=== PATIENT | female | born 1965 | race Caucasian/White ===

== ENCOUNTER 2019-12-23 23:15 | Emergency (ER) | payer OTHER, SELFPAY ==
--- NOTE | ~2019-12-23 | XR_ITS ---
XR chest 2V DATE: 12/23/2019 23:44 INDICATION: Midsternal chest pain after ingestion of with toothpick 12 hours ago TECHNIQUE: PA and lateral views COMPARISON: 04/10/2015 AP and lateral chest FINDINGS: Normal heart size. No hilar or mediastinal enlargement. No pulmonary infiltrate or consolid ation, pleural effusion or pulmonary vascular congestion or pneumothorax. No radiopaque foreign body is evident. Mild degenerative change of the thoracic spine. Status post cholecystectomy. IMPRESSION: No active cardiopulmonary disease Reviewed, dictated and finalized at location A.
[2019-12-23 23:23] VITALS: BP 180/70; PULSE 90; RESP 16; TEMP 36.5; O2SAT 99
--- NOTE | 2019-12-23 23:31 | PC.NURSE ---
patient did eat a large supper, with lots of tomatoes that gives her bad heart burn, but son made her scared she ate the toothpick, so came to ED
--- NOTE | 2019-12-23 23:53 | ED.GENADULT ---
HPI - General Adult General Chief complaint: Unspecified Stated complaint: Ingestion of possible tooth pick Source: patient and RN notes reviewed Mode of arrival: ambulatory Limitations: no limitations History of Present Illness HPI narrative: patient states that she thinks she swallowed a bout 1/2 inch of a flat tooth pick during a meal 12 hours ago. Since then she had a a sub sandwich and had no difficulty eating that. She now feels like she has a strange feeling in her lower esophagus and she points towards her xiphoid process. She has no other symptoms she denies cough, difficulty swallowing, fever chills. She denies any difficulty breathing. MD complaint: swallowed a toothpick Onset (ago): hour(s) (12) Associated symptoms: denies other symptoms Treatments prior to arrival: none Related Data Home Medications Medication Instructions Recorded Confirmed albuterol sulfate [ProAir HFA] See Rx Instructions .ROUTE .COMPLEX 12/23/19 12/23/19 hydrochlorothiazide See Rx Instructions .ROUTE .COMPLEX 12/23/19 12/23/19 montelukast [Singulair] See Rx Instructions .ROUTE .COMPLEX 12/23/19 12/23/19 omeprazole See Rx Instructions .ROUTE .COMPLEX 12/23/19 12/23/19 zolpidem [Ambien] See Rx Instructions .ROUTE .COMPLEX 12/23/19 12/23/19 Allergies Allergy/AdvReac Type Severity Reaction Status Date / Time Penicillins Allergy Unknown RASH Unverified 10/28/13 15:19 Review of Systems Review of Systems: All systems reviewed & are unremarkable except as noted in HPI and below PMFSH Past Medical History Medical History (Updated 12/24/19 @ 00:07 by Krunal Huang MD) Asthma GERD (gastroesophageal reflux disease) Hypertension Surgical History Surgical History (Updated 12/24/19 @ 00:07 by Krunal Huang MD) Delivery by section History of ankle surgery History of bilateral tubal ligation Hx of cholecystectomy Hx of tonsillectomy Social History Social History (Updated 12/24/19 @ 00:04 by Krunal Huang MD) Smoking status: Never smoker Alcohol intake: former Substance use: never Gender identity (if verbalized by the patient): Female Sexual Orientation (if Verbalized by the Patient): Straight or Heterosexual Exam Const: General: healthy appearing and no acute distress Nutritional Appearance: well nourished and obese morbidly obese Orientation/consciousness: patient oriented x3 Course Course Emergency Course: I explained the patient that the small portion of a flat wood tooth pick should pass or dissolve. the feeling that she has may be from an abrasion when she swallowed a toothpick and just irritation from digestive juices going down her throat or washing up from her stomach. She is encouraged to monitor her symptoms follow-up primary care any worsening symptoms. Vital Signs Vital signs: Vital Signs Temperature 36.5 C 12/23/19 23:23 Pulse Rate 90 12/23/19 23:23 Respiratory Rate 16 12/23/19 23:23 Blood Pressure 180/70 H 12/23/19 23:23 Pulse Oximetry 99 12/23/19 23:23 Temperature 36.5 C 12/23/19 23:23 Pulse Rate 90 12/23/19 23:23 Respiratory Rate 16 12/23/19 23:23 Blood Pressure 180/70 H 12/23/19 23:23 Pulse Oximetry 99 12/23/19 23:23 Medical Decision Making Vital Signs Vital Signs: Vital Signs Temperature 36.5 C 12/23/19 23:23 Pulse Rate 90 12/23/19 23:23 Respiratory Rate 16 12/23/19 23:23 Blood Pressure 180/70 H 12/23/19 23:23 Pulse Oximetry 99 12/23/19 23:23 Temperature 36.5 C 12/23/19 23:23 Pulse Rate 90 12/23/19 23:23 Respiratory Rate 16 12/23/19 23:23 Blood Pressure 180/70 H 12/23/19 23:23 Pulse Oximetry 99 12/23/19 23:23 Discharge Plan Discharge Clinical Impression: Foreign body ingestion Qualifiers: Encounter type: initial encounter Qualified Code(s): T18.9XXA - Foreign body of alimentary tract, part unspecified, initial encounter Patient Disposition: Home, Self-Care Condition: Stable Instructi
--- NOTE | 2019-12-23 23:58 | PC.NURSE ---
reviewing xray & plan of care
[2019-12-24 00:07] VITALS: BP 170/88; PULSE 78; RESP 18; TEMP 37; O2SAT 98
== END 2019-12-24 00:08 | disposition home or self-care (01) ==
PROVIDERS: Emergency Provider Emergency Medicine; PCP Family Medicine
DX: T18.9XXA Foreign body of alimentary tract, part unspecified, initial encounter (principal)
CPT/HCPCS: 71046; 99281; 99283

== ENCOUNTER 2019-12-30 11:05 | Emergency (ER) | payer OTHER, SELFPAY ==
--- NOTE | ~2019-12-30 | CT_ITS ---
EXAMINATION: CT abdomen pelvis wo con DATE: 12/30/2019 11:54 INDICATION: Left flank pain, history of kidney stones TECHNIQUE: Computed tomography (CT) of the abdomen and pelvis was performed without intravenous contr ast. The dose-length product (DLP) was 705.36 mGy-cm. Automated exposure control and iterative recons truction technique were employed. COMPARISON: 08/16/2018 FINDINGS: The lung bases are clear. The heart size is normal. The liver is diffusely low in attenuati on when compared with the spleen, consistent with hepatic steatosis. The gallbladder is surgically ab sent. The spleen, pancreas, and adrenal glands are normal. The kidneys are unremarkable. No stones ar e identified in the kidneys, ureters, or bladder. There is no hydronephrosis or hydroureter. The appe ndix is normal. Colonic diverticulosis is present without evidence of diverticulitis. There is severe lumbar spondylosis at L4-5. A fat-containing umbilical hernia is noted. IMPRESSION: 1. No CT correlate for the patient's symptoms. Reviewed, dictated and finalized at location A.
[2019-12-30 11:10] VITALS: BP 183/85; PULSE 78; RESP 20; TEMP 36.8; O2SAT 99
[2019-12-30] MEDS: KETOROLAC 15 MG/ML VIAL (*BKC) IV PUSH (11:31)
[2019-12-30] MEDS: MORPHINE SULFATE 4 MG/ML INJ IV PUSH (11:32)
--- NOTE | 2019-12-30 11:41 | ED.GENADULT ---
HPI - General Adult General Chief complaint: Urogenital-Female Stated complaint: kidney stone Source: patient Mode of arrival: ambulatory Limitations: no limitations History of Present Illness HPI narrative: Madonna is a 54F with a PMH of HTN, GERD, recurrent ureterolithiasis (required surgery once) that presented to the ED with left flank pain. She had left flank pain that came on while doing house chores suddenly. It is a waxing and waning stabbing pain in her left flank that feels like previous stones. No dysuria, hematuria, N/V/D, CP, SOB, fevers or chills. Related Data Home Medications Medication Instructions Recorded Confirmed beclomethasone dipropionate 1 inh INHALATION Q12H 12/30/19 12/30/19 hydrochlorothiazide 25 mg PO DAILY 12/30/19 12/30/19 loratadine [Claritin] 10 mg PO DAILY 12/30/19 12/30/19 omeprazole 40 mg PO DAILY 12/30/19 12/30/19 Allergies Allergy/AdvReac Type Severity Reaction Status Date / Time Penicillins Allergy Unknown RASH Unverified 10/28/13 15:19 Review of Systems Constitutional: Constitutional: Reports no additional constitutional complaints Eyes: Eyes: Reports no additional eye complaints ENT: Reports system reviewed and no additional complaints, except as documented Cardiovascular: Cardiovascular: Reports no additional cardiovascular complaints Respiratory: Respiratory: Reports no additional respiratory complaints Gastrointestinal: Gastrointestinal: Reports no additional gastrointestinal complaints Genitourinary: Genitourinary: Reports as per HPI Musculoskeletal: Musculoskeletal: Reports no additional musculoskeletal complaints Integumentary/Breasts: Skin/Breast: Reports system reviewed and no additional complaints, except as docu Neurologic: Reports system reviewed and no additional complaints, except as documented Psychiatric: Psychiatric: Reports no additional psychiatric complaints Endocrine: Endocrine: Reports no additional endocrine complaints Hematologic/Lymphatic: Hematologic/Lymphatic: Reports no additional hematologic/lymphatic complaints Allergic/Immunologic: Allergic/Immunologic: Reports no additional allergic/immunologic complaints [facility] Past Medical History Medical History Asthma GERD (gastroesophageal reflux disease) Hypertension Surgical History Surgical History Delivery by section History of ankle surgery History of bilateral tubal ligation Hx of cholecystectomy Hx of tonsillectomy Social History Social History Smoking status: Never smoker Alcohol intake: former Substance use: never Gender identity (if verbalized by the patient): Female Exam Const: General: alert Orientation/consciousness: patient oriented x3 Limitations: No altered mental status Other: In mild distress HENMT: Head: normal to inspection Mouth: Yes moist mucous membranes Eyes: Conjunctivae: conjunctivae normal Pupils: Equal, round and reactive pupils present Neck: Neck: normal visual inspection Chest: Chest palpation & inspection: normal inspection of the chest Resp: Effort & Inspection: normal respiratory effort Auscultation: clear to auscultation bilaterally Cardio: Rate: regular rate Rhythm: regular rhythm Heart sounds: no murmurs GI: GI Palp: Yes Soft to palpation, No Tenderness to palpation present (GI) and No Guarding due to palpation present (GI) : Other: Significant left sided tenderness Skin: General skin exam: normal color Rashes: no rashes Neuro: General: patient oriented x3 and moves all extremities Psych: Mental Status: mental status grossly normal Course Course Emergency Course: Madonna was seen and evaluated. Ordered toradol and morphine for pain control. Orderd labs as below, UA and CT abd/pelvis w/o contrast. Medical Decision Making Lab Data Res
[2019-12-30 11:50] LABS: Basophils Absolute Auto 0.05 K/mm3 (0.00-0.10); Basophils Percent Auto 0.7 % (0.0-1.0); Eosinophils Absolute Auto 0.45 K/mm3 (0.02-0.50); Eosinophils Percent Auto 6.3 % (1.0-6.0); Hematocrit 44.2 % (35.0-49.0); Immature Granulocyte Absolute 0.03 K/mm3 (0.00-0.00); Immature Granulocyte Percent A 0.4 % (0.0-0.0); Lymphocytes Absolute Auto 1.75 K/mm3 (1.10-4.50); Lymphocytes Percent Auto 24.6 % (18.0-42.0); Mean Corpuscular HGB Conc 31.7 g/dL (32.0-36.0); Mean Corpuscular Hemoglobin 27.2 pg (27.0-31.0); Mean Platelet Volume 9.9 fl (9.2-11.8); Monocytes Absolute Auto 0.52 K/mm3 (0.10-0.90); Monocytes Percent Auto 7.3 % (2.0-11.0); Neutrophils Absolute Auto 4.3 K/mm3 (1.7-7.2); Neutrophils Percent Auto 60.7 % (50.0-70.0); Platelet Count Result 322 K/mm3 (150-420); Red Blood Count 5.14 M/mm3 (4.20-5.40); Red Cell Distribution Width 14.6 % (11.6-14.4); White Blood Count 7.1 K/mm3 (4.8-10.8)
[2019-12-30 11:51] LABS: Add Urine Microscopic? NO; Appearance Urine Clear (Clear); Bilirubin Urine Negative (Negative); Blood Urine Negative (Negative); Color Urine Yellow (Yellow); Glucose Urine UA Negative (Negative); Ketones Urine Negative (Negative); Leukocyte Esterase Ur Negative (Negative); Nitrate Urine Negative (Negative); Protein Urine Negative (Negative); Specific Grav Ur <= 1.005 (1.010-1.020); Urobilinogen Urine 0.2 mg/dL (0.2-1.0); pH Urine 5.5 (5.0-8.0)
[2019-12-30 12:08] LABS: Alanine Aminotransferase 43 U/L (14-59); Albumin Level 3.6 g/dL (3.4-5.0); Alkaline Phosphatase 76 U/L (46-116); Anion Gap 7 mmol/L (8-16); Aspartate Amino Transferase 23 U/L (15-37); Bilirubin,Total 0.2 mg/dL (0.00-1.00); Blood Urea Nitrogen 16 mg/dL (7-18); Calcium 8.9 mg/dL (8.5-10.1); Carbon Dioxide 30 mmol/L (21-32); Chloride 102 mmol/L (98-108); Estimated Glomerular Filt Rate 52; Glucose 129 mg/dL (70-99); Osmolality Calculated 291 mOsm/kg (285-295); Potassium 3.5 mmol/L (3.5-5.1); Sodium 139 mmol/L (136-145); Total Protein 7.7 g/dL (6.4-8.2)
[2019-12-30 12:09] LABS: Lipase 127 U/L (73-393)
[2019-12-30 12:50] VITALS: BP 158/78
== END 2019-12-30 12:50 | disposition home or self-care (01) ==
PROVIDERS: Emergency Provider Family Medicine; PCP Family Medicine
DX: R10.9 Unspecified abdominal pain (principal); I10 Essential (primary) hypertension; K21.9 Gastro-esophageal reflux disease without esophagitis; J45.909 Unspecified asthma, uncomplicated; Z87.442 Personal history of urinary calculi
CPT/HCPCS: 36415; 74176; 80053; 81003; 83690; 85025; 96374; 96375; 99283; 99284; J1885; J2270

== ENCOUNTER 2020-05-15 11:17 | Outpatient (CLI) | payer BC, SELFPAY ==
--- NOTE | ~2020-05-15 | XR_ITS ---
EXAMINATION: XR ankle RT min 3V DATE: 05/15/2020 11:50 INDICATION: Right ankle pain. TECHNIQUE: 4 views of right ankle were obtained. COMPARISON: None. FINDINGS: Bone alignment is normal. No fracture. 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 There are suture anchors in calcaneus. There is an enthesophyte at posterior aspect of calcaneal tuberosity. Ankle soft tissue swelling is noted. IMPRESSION: 1. No fracture. Reviewed, dictated and finalized at location B. ET [employer] IMPRESSION: 1. No fracture.
--- NOTE | ~2020-05-15 | XR_ITS ---
EXAMINATION: XR chest 2V DATE: 05/15/2020 11:49 INDICATION: Left chest pain. TECHNIQUE: Frontal and lateral views of the chest were obtained on 3 radiographs. COMPARISON: Chest 2 views 12/23/2019 FINDINGS: The chest demonstrates clear lungs without pneumonia, pleural effusion, or pneumothorax. Th e heart size is normal. Surgical clips in the right upper quadrant are likely from cholecystectomy. IMPRESSION: 1. No acute cardiopulmonary disease. Reviewed, dictated and finalized at location B. ENGINEER
[2020-05-15 11:32] LABS: Basophils Absolute Auto 0.06 K/mm3 (0.00-0.10); Basophils Percent Auto 0.8 % (0.0-1.0); Eosinophils Absolute Auto 0.65 K/mm3 (0.02-0.50); Eosinophils Percent Auto 8.6 % (1.0-6.0); Hematocrit 45.1 % (35.0-49.0); Hemoglobin 14.3 g/dL (12.0-15.0); Immature Granulocyte Absolute 0.03 K/mm3 (0.00-0.00); Immature Granulocyte Percent A 0.4 % (0.0-0.0); Lymphocytes Absolute Auto 1.74 K/mm3 (1.10-4.50); Lymphocytes Percent Auto 22.9 % (18.0-42.0); Mean Corpuscular HGB Conc 31.7 g/dL (32.0-36.0); Mean Corpuscular Volume 85.1 fL (78.0-102.0); Monocytes Absolute Auto 0.48 K/mm3 (0.10-0.90); Monocytes Percent Auto 6.3 % (2.0-11.0); Neutrophils Absolute Auto 4.6 K/mm3 (1.7-7.2); Platelet Count Result 324 K/mm3 (150-420); Red Cell Distribution Width 14.8 % (11.6-14.4); White Blood Count 7.6 K/mm3 (4.8-10.8)
[2020-05-15 11:39] LABS: Creatinine Urine 214.47 mg/dL (40-278); Microalbumin Urine Random < 13.0 mg/L
[2020-05-15 11:53] LABS: Anion Gap 7 mmol/L (8-16); Blood Urea Nitrogen 13 mg/dL (7-18); Calcium 9.4 mg/dL (8.5-10.1); Carbon Dioxide 31 mmol/L (21-32); Chloride 100 mmol/L (98-108); Creatine Kinase 76 U/L (26-192); Estimated Glomerular Filt Rate 48; Glucose 119 mg/dL (70-99); Osmolality Calculated 287 mOsm/kg (285-295); Potassium 3.3 mmol/L (3.5-5.1); Sodium 138 mmol/L (136-145); Thyroid Stimulating Hormone 1.52 uIU/mL (0.36-3.74); Troponin I 4.4 ng/L (0.00-60.4)
[2020-05-15 12:02] LABS: Creatine Kinase MB < 0.50 ng/mL (0.00-5.00)
== END 2020-05-15 11:18 | disposition home or self-care (01) ==
LOC: CHSLAB 11:19
PROVIDERS: PCP Family Medicine; Visit Provider Family Medicine
DX: R07.9 Chest pain, unspecified (principal); I10 Essential (primary) hypertension; M25.571 Pain in right ankle and joints of right foot
CPT/HCPCS: 36415; 71046; 73610; 80048; 82043; 82550; 82553; 84443; 84484; 85025

== ENCOUNTER 2020-06-23 13:41 | Outpatient (CLI) | payer BC, SELFPAY ==
--- NOTE | 2020-06-23 13:46 | ECHO_ITS ---
Patient Info Name: Madonna Mi Age: 54 years : 1965 Gender: Female Ht: 66 in Wt: 229 lbs BSA: 2.24 m2 HR: 67 bpm BP: 120 / 69 mmHg Heart Rhythm: Sinus Rhythm Technical Quality: Fair Exam Date: 06/23/2020 2:13 PM Exam Location: [facility] Patient Status: Outpatient Admit Date: 06/23/2020 Staff Ordering Physician: Artemio Kerns DO Equine Internship: Karen Barlow RDCS Attending Provider: Artemio Kerns DO Referring Physician: Luis F HALE; Exam Type: CA echo dop color flow w con Study Info Indications R06.00 - Dyspnea, unspecified Complete two-dimensional, color flow and Doppler transthoracic echocardiogram is performed with contrast to opacify the left ventricle and to improve the deliniation of the left ventricle endocardial borders. Strain analysis performed. Contrast/Agitated Saline Contrast/Ag. Saline: Definity Amount: 5.00 ml New IV Access: Dorsum of Hand and Left Site Condition: No extravasation, Site dressing applied and IV removed History/Risk Factors Hypertension: Yes Obesity: Yes Diabetes Mellitus: No Tobacco Use: Former Family History: Coronary Artery Disease Frailty Scale (CSHA): 2: Well Summary 1. Left ventricular chamber dimension is normal. 2. Definity contrast administered improved wall motion interpretation. 3. Left ventricular systolic function is normal, estimated at 65-70%. 4. There is mildly increased left ventricular wall thickness. 5. The left ventricular diastolic function is grade I diastolic dysfunction. 6. E/e' 13 is mildly elevated. 7. Global longitudinal strain is abnormal at -11.7%. 8. There is trace pulmonic regurgitation. Left Ventricle Definity contrast administered improved wall motion interpretation. E/e' 13 is mildly elevated. Global longitudinal strain is abnormal at -11.7%. Left ventricular chamber dimension is normal. Left ventricular systolic function is normal, estimated at 65-70%. There is mildly increased left ventricular wall thickness. The left ventricular diastolic function is grade I diastolic dysfunction. Right Ventricle Right ventricular chamber dimension is normal. Right ventricular systolic function is normal. Left Atria Left atrial chamber dimension is normal. Right Atria Right atrial chamber dimension is normal. Aortic Valve The aortic valve is trileaflet. There is no aortic valve stenosis. There is no aortic valve regurgitation. Pulmonic Valve There is trace pulmonic regurgitation. Mitral Valve There is no mitral valve stenosis. There is no mitral valve regurgitation. Tricuspid Valve There is no tricuspid valve regurgitation. Pericardium/Pleural There is no pericardial effusion. Inferior Vena Cava Normal inferior vena cava with >50% collapse upon inspiration consistent with normal right atrial pressure, 5 mmHg. Aorta The aortic root size at the sinus of Valsalva is normal. Left Ventricular Outflow Tract Name Value Normal LVOT 2D LVOT Diameter 1.97 cm LVOT Doppler LVOT Peak Velocity 106.68 cm/s
== END 2020-06-23 13:42 | disposition home or self-care (01) ==
LOC: CHSIMG 13:42
PROVIDERS: PCP Family Medicine; Visit Provider Internal Medicine Cardiovascular Disease
DX: R06.00 Dyspnea, unspecified (principal)
CPT/HCPCS: C8929

== ENCOUNTER 2021-05-12 07:00 | Emergency (ER) | payer BC, SELFPAY ==
[2021-05-12 07:05] VITALS: BP 166/89; PULSE 102; RESP 20; TEMP 36.5; O2SAT 98
--- NOTE | 2021-05-12 07:21 | ED.NAVMDI ---
HPI - Nausea/Vomiting/Diarrhea General Chief complaint: Nausea/Vomiting/Diarrhea Stated complaint: Vomiting/diarrhea Source: patient and RN notes reviewed Mode of arrival: ambulatory Limitations: no limitations History of Present Illness MD elicited complaint: nausea, vomiting and diarrhea Onset (ago): hour(s) (14) Description of vomiting: food contents and bilious Description of diarrhea: watery Associated nausea: Yes Associated abdominal pain: No Severity: moderate Exacerbating factors: eating Relieving factors: none Associated symptoms: denies other symptoms Related Data Home Medications Medication Instructions Recorded Confirmed beclomethasone dipropionate 1 inh INHALATION Q12H 12/30/19 05/12/21 hydrochlorothiazide 25 mg PO DAILY 12/30/19 05/12/21 loratadine [Claritin] 10 mg PO DAILY 12/30/19 05/12/21 omeprazole 40 mg PO DAILY 12/30/19 05/12/21 albuterol sulfate 90 mcg/actuation 1 inh INHALATION Q4H 05/25/20 05/12/21 aerosol inhaler cetirizine 10 mg tablet 10 mg PO DAILY PRN 05/25/20 05/12/21 escitalopram oxalate 10 mg tablet 10 mg PO DAILY 06/18/20 05/12/21 trazodone 50 mg tablet 50 mg PO DAILY PRN tablet 06/18/20 05/12/21 Allergies Allergy/AdvReac Type Severity Reaction Status Date / Time Penicillins Allergy Unknown RASH Unverified 06/18/20 10:42 Review of Systems Review of Systems: All systems reviewed & are unremarkable except as noted in HPI and below Constitutional: Constitutional: Denies chills and Denies fever(s) ENT: Denies sore throat Cardiovascular: Cardiovascular: Denies chest pain Respiratory: Respiratory: Denies cough PMFSH Past Medical History Medical History Asthma GERD (gastroesophageal reflux disease) History of use of contraceptive intrauterine device (IUD) Hypertension Renal stones Surgical History Surgical History Delivery by section History of ankle surgery History of bilateral tubal ligation History of colonoscopy Hx of cholecystectomy Hx of tonsillectomy Social History Social History Smoking status: Former smoker Alcohol intake: former Substance use: never Gender identity (if verbalized by the patient): Female Sexual Orientation (if Verbalized by the Patient): Straight or Heterosexual Exam Const: General: healthy appearing and no acute distress Nutritional Appearance: well nourished and obese morbidly obese Orientation/consciousness: patient oriented x3 HENMT: Head: normal to inspection Ears: external ears normal Eyes: Cornea: corneas normal Pupils: Equal, round and reactive pupils present EOM: EOMs intact bilaterally Neck: Neck: normal visual inspection Resp: Effort & Inspection: normal respiratory effort Auscultation: clear to auscultation bilaterally Cardio: Rate: regular rate Rhythm: regular rhythm GI: GI Palp: Yes Soft to palpation, No Tenderness to palpation present (GI) and No Guarding due to palpation present (GI) Auscultation: normal bowel sounds Back/Spine/Pelvis: Cervical Spine: cervical ROM normal Thoracic/Lumbar Spine: thoraco-lumbar ROM normal Skin: General skin exam: normal color Rashes: no rashes Neuro: General: patient oriented x3, moves all extremities, no meningeal signs, no focal motor deficits and CN's II-XI intact bilaterally Speech: normal speech Gait exam (Neuro): Normal gait present Extrem: General: normal to inspection and no clubbing, cyanosis or edema Psych: Appearance: grossly normal and well kempt Mental Status: mental status grossly normal Affect: normal affect Attitude: cooperative Thought content: Yes Normal thought content present Course Course Emergency Course: Patient given a L of fluids and 40 mEq of potassium through her IV. She has potassium pills at home I asked her to double her dose over the next 5 days. Should follow u
[2021-05-12] MEDS: ONDANSETRON INJ 4 MG/2 ML VIAL IV PUSH (07:38)
[2021-05-12] MEDS: SODIUM CHLORIDE 0.9% IV 1,000 ML 999 ML IV CONT (07:39)
[2021-05-12 07:56] LABS: Basophils Absolute Auto 0.02 K/mm3 (0.00-0.10); Basophils Percent Auto 0.2 % (0.0-1.0); Eosinophils Absolute Auto 0.08 K/mm3 (0.02-0.50); Hematocrit 44.7 % (35.0-49.0); Hemoglobin 14.3 g/dL (12.0-15.0); Immature Granulocyte Absolute 0.04 K/mm3 (0.00-0.00); Immature Granulocyte Percent A 0.5 % (0.0-0.0); Lymphocytes Absolute Auto 0.69 K/mm3 (1.10-4.50); Lymphocytes Percent Auto 8.6 % (18.0-42.0); Mean Corpuscular Hemoglobin 27.7 pg (27.0-31.0); Mean Corpuscular Volume 86.5 fL (78.0-102.0); Mean Platelet Volume 9.8 fl (9.2-11.8); Monocytes Absolute Auto 0.31 K/mm3 (0.10-0.90); Monocytes Percent Auto 3.8 % (2.0-11.0); Neutrophils Absolute Auto 6.9 K/mm3 (1.7-7.2); Neutrophils Percent Auto 85.9 % (50.0-70.0); Platelet Count Result 314 K/mm3 (150-420); Red Blood Count 5.17 M/mm3 (4.20-5.40); White Blood Count 8.1 K/mm3 (4.8-10.8)
[2021-05-12 08:23] LABS: Alanine Aminotransferase 104 U/L (14-59); Albumin Level 3.3 g/dL (3.4-5.0); Alkaline Phosphatase 58 U/L (46-116); Anion Gap 14 mmol/L (8-16); Aspartate Amino Transferase 46 U/L (15-37); Bilirubin,Total 0.4 mg/dL (0.00-1.00); Blood Urea Nitrogen 19 mg/dL (7-18); CRP 3.6 mg/dL (0.0-0.9); Calcium 8.6 mg/dL (8.5-10.1); Carbon Dioxide 28 mmol/L (21-32); Chloride 99 mmol/L (98-108); Estimated CRCL calculation 50 ml/min; Estimated Glomerular Filt Rate 41; Glucose 159 mg/dL (70-99); Magnesium 1.8 mg/dL (1.8-2.4); Osmolality Calculated 297 mOsm/kg (285-295); Sodium 141 mmol/L (136-145); Total Protein 7.4 g/dL (6.4-8.2)
[2021-05-12 08:29] LABS: Potassium 2.5 mmol/L (3.5-5.1)
[2021-05-12 08:37] LABS: SARS-CoV-2 RNA PCR Negative (Negative)
[2021-05-12] MEDS: KCL 20 MEQ/SW 100 ML 100 ML 50 MEQ IVPB ×2 (08:50→09:05)
[2021-05-12] MEDS: SODIUM CHLORIDE 0.9% IV 500 ML 30 ML (09:16)
--- NOTE | 2021-05-12 09:30 | PC.NURSE ---
pt up to commode, incontinent of stool small amount. adult pull up and wipes obtained. offered assistance to pt with skin care. pt declined.
--- NOTE | 2021-05-12 10:20 | PC.NURSE ---
resting per cot, watching tv. no complaints voiced at this time. call schmidt in reach.
[2021-05-12 12:28] VITALS: BP 160/79; RESP 20; TEMP 36.6; O2SAT 97
== END 2021-05-12 12:45 | disposition home or self-care (01) ==
PROVIDERS: Emergency Provider Emergency Medicine; PCP Family Medicine
DX: A08.4 Viral intestinal infection, unspecified (principal); E87.1 Hypo-osmolality and hyponatremia; Z20.822 Contact with and (suspected) exposure to COVID-19
CPT/HCPCS: 36415; 80053; 83735; 85025; 86140; 96361; 96365; 96375; 99283; 99284; C9803; J2405; J3480; J7030; J7050; U0003; U0005

== ENCOUNTER 2021-07-20 23:25 | Emergency (ER) | payer BC, SELFPAY ==
[2021-07-20 23:47] VITALS: BP 142/72; PULSE 68; RESP 16; TEMP 36.2; O2SAT 95
--- NOTE | 2021-07-20 23:47 | ED.GENADULT ---
HPI - General Adult General Chief complaint: Unspecified Stated complaint: Nose problem Time Seen by Provider: 07/20/21 23:48 History of Present Illness HPI narrative: 55-year-old female patient is here with the complaints of blockage of the left knee area ease. She states that every time she tries to breathe out she feels that there is a block there. She does not have any difficulty breathing in. She does have history of allergies and uses Claritin. She has not had any cold recently. And she does not recall any foreign bodies into the nares Related Data Home Medications Medication Instructions Recorded Confirmed beclomethasone dipropionate 1 inh INHALATION Q12H 12/30/19 05/12/21 hydrochlorothiazide 25 mg PO DAILY 12/30/19 05/12/21 loratadine [Claritin] 10 mg PO DAILY 12/30/19 05/12/21 omeprazole 40 mg PO DAILY 12/30/19 05/12/21 albuterol sulfate 90 mcg/actuation 1 inh INHALATION Q4H 05/25/20 05/12/21 aerosol inhaler cetirizine 10 mg tablet 10 mg PO DAILY PRN 05/25/20 05/12/21 escitalopram oxalate 10 mg tablet 10 mg PO DAILY 06/18/20 05/12/21 trazodone 50 mg tablet 50 mg PO DAILY PRN tablet 06/18/20 05/12/21 Allergies Allergy/AdvReac Type Severity Reaction Status Date / Time Penicillins Allergy Unknown RASH Unverified 06/18/20 10:42 Review of Systems Review of Systems: All systems reviewed & are unremarkable except as noted in HPI and below PMFSH Past Medical History Medical History Asthma GERD (gastroesophageal reflux disease) History of use of contraceptive intrauterine device (IUD) Hypertension Renal stones Surgical History Surgical History Delivery by section History of ankle surgery History of bilateral tubal ligation History of colonoscopy Hx of cholecystectomy Hx of tonsillectomy Social History Social History Smoking status: Former smoker Alcohol intake: former Substance use: never Gender identity (if verbalized by the patient): Female Sexual Orientation (if Verbalized by the Patient): Straight or Heterosexual Exam Narrative: Alert female in no acute distress . Vital signs are stable. HEENT: normal appearing skull face. No obvious deformities noted. Pupils are midsize and equal and reactive to light. EOMs intact. Nares are patent on both sides. Patient does have boggy mucous membrane in the left septal area but there is no obstruction. The air movement is fine. There is no foreign body noted. Right nostril is clear. Throat is clear. Lungs are clear. Heart tones are regular. Rest of the physical Examination is unremarkable Course Course Emergency Course: patient has been reassured about the mucous membrane being boggy from allergies. She has been advised to alternate the side of laying down to alleviate the swelling of the mucous membranes of the nostrils. She has also been advised to use Afrin rather conservatively to avoid any rebound. The patient has also been advised to continue her antihistamine. Discharge Plan Discharge Clinical Impression: Inflamed nasal mucosa Patient Disposition: Elopement After Seen by Prov Condition: Stable Prescriptions: No Action omeprazole 40 mg capsule,delayed release(DR/EC) 40 mg PO DAILY RF: 0 hydrochlorothiazide 25 mg tablet 25 mg PO DAILY RF: 0 loratadine [Claritin] 10 mg Tablet 10 mg PO DAILY RF: 0 beclomethasone dipropionate 40 mcg/actuation Hfa Aerosol Breath Activated 1 inh INHALATION Q12H RF: 0 albuterol sulfate [Ventolin HFA] 90 mcg/actuation HFA aerosol inhaler 1 inh inhalation Q4H RF: 0 cetirizine 10 mg tablet 10 mg PO DAILY PRN (Reason: Allergy Symptoms) RF: 0 escitalopram oxalate 10 mg tablet 10 mg PO DAILY RF: 0 trazodone 50 mg tablet 50 mg PO DAILY PRN (Reason: sleep) RF: 0 Follow-up/Refer
== END 2021-07-21 00:36 | disposition left against medical advice (07) ==
LOC: CHSED 23:27
PROVIDERS: Emergency Provider Emergency Medicine; PCP Family Medicine
DX: J31.0 Chronic rhinitis (principal)
CPT/HCPCS: 99281

== ENCOUNTER 2022-02-18 09:15 | Outpatient (CLI) | payer BC, SELFPAY ==
[2022-02-18 09:46] LABS: Basophils Absolute Auto 0.07 K/mm3 (0.00-0.10); Basophils Percent Auto 0.8 % (0.0-1.0); Eosinophils Absolute Auto 0.63 K/mm3 (0.02-0.50); Hematocrit 45.4 % (35.0-49.0); Hemoglobin 14.4 g/dL (12.0-15.0); Immature Granulocyte Absolute 0.04 K/mm3 (0.00-0.00); Immature Granulocyte Percent A 0.4 % (0.0-0.0); Lymphocytes Absolute Auto 2.12 K/mm3 (1.10-4.50); Lymphocytes Percent Auto 23.6 % (18.0-42.0); Mean Corpuscular HGB Conc 31.7 g/dL (32.0-36.0); Mean Corpuscular Hemoglobin 27.3 pg (27.0-31.0); Mean Corpuscular Volume 86.1 fL (78.0-102.0); Mean Platelet Volume 9.6 fl (9.2-11.8); Monocytes Absolute Auto 0.53 K/mm3 (0.10-0.90); Monocytes Percent Auto 5.9 % (2.0-11.0); Neutrophils Absolute Auto 5.6 K/mm3 (1.7-7.2); Neutrophils Percent Auto 62.3 % (50.0-70.0); Platelet Count Result 354 K/mm3 (150-420); Red Blood Count 5.27 M/mm3 (4.20-5.40); Red Cell Distribution Width 14.8 % (11.6-14.4)
[2022-02-18 09:47] LABS: Appearance Urine Clear (Clear); Bilirubin Urine Negative (Negative); Blood Urine Negative (Negative); Glucose Urine UA Negative (Negative); Ketones Urine Negative (Negative); Leukocyte Esterase Ur 1+ (Negative); Nitrate Urine Negative (Negative); Protein Urine Negative (Negative); Urobilinogen Urine 0.2 mg/dL (0.2-1.0)
[2022-02-18 09:57] LABS: Add Urine Microscopic? YES; Bacteria Urine Trace /hpf; Color Urine Light Yellow (Yellow); RBC Urine None seen /hpf (0-2); Squamous Epithelial Cell Urine Few /hpf (Few)
[2022-02-18 10:12] LABS: Creatinine Urine 150.69 mg/dL (40-278); MALB Creatinine Ratio 8.6 mg/g (0-30); Microalbumin Urine Random < 13.0 mg/L
[2022-02-18 10:17] LABS: Iron 60 ug/dL (50-170); Percent Iron Saturation 16 % (12-57)
[2022-02-18 10:33] LABS: Alanine Aminotransferase 41 U/L (14-59); Albumin Level 3.7 g/dL (3.4-5.0); Alkaline Phosphatase 74 U/L (46-116); Anion Gap 6 mmol/L (8-16); Aspartate Amino Transferase 26 U/L (15-37); Bilirubin,Total 0.3 mg/dL (0.00-1.00); Blood Urea Nitrogen 16 mg/dL (7-18); CRP 1.4 mg/dL (0.0-0.9); Calcium 8.9 mg/dL (8.5-10.1); Carbon Dioxide 32 mmol/L (21-32); Chloride 101 mmol/L (98-108); Cholesterol 239 mg/dL (0-200); Creatine Kinase 77 U/L (26-192); Estimated Glomerular Filt Rate 49; Ferritin 36 ng/mL (8-252); Folic Acid 17.9 ng/mL (8.6->20); Glucose 120 mg/dL (70-99); HDL Direct 62 mg/dL (40-60); LDL Cholesterol Calculated 151 mg/dL (<130); Osmolality Calculated 290 mOsm/kg (285-295); Potassium 3.1 mmol/L (3.5-5.1); Sodium 139 mmol/L (136-145); Thyroid Stimulating Hormone 3.19 uIU/mL (0.36-3.74); Triglycerides 130 mg/dL (0-150); Troponin I 4.9 ng/L (0.00-60.4); Vitamin B12 377 pg/mL (193-986)
[2022-02-18 10:49] LABS: Erythrocyte Sedimentation Rate 15 mm/hr (0-20)
[2022-02-18 14:01] LABS: Magnesium 1.7 mg/dL (1.8-2.4)
[2022-02-18 14:05] LABS: Hemoglobin A1C 6.5 % (<5.7)
[2022-02-21 13:06] LABS: RPR Screen Non-Reactive (Non-Reactive)
[2022-02-22 08:34] LABS: Methylmalonic Acid 138 nmol/L (87-318)
== END 2022-02-18 09:16 | disposition home or self-care (01) ==
LOC: CHSLAB 09:17
PROVIDERS: PCP Family Medicine; Visit Provider Family Medicine
DX: R53.83 Other fatigue (principal); E11.9 Type 2 diabetes mellitus without complications; R20.2 Paresthesia of skin; R07.9 Chest pain, unspecified; G25.81 Restless legs syndrome
CPT/HCPCS: 36415; 80053; 80061; 81001; 82043; 82550; 82553; 82607; 82728; 82746; 83036; 83540; 83550; 83735; 83921; 84443; 84484; 85025; 85652; 86140; 86592

== ENCOUNTER 2022-03-29 22:41 | Emergency (ER) | payer OTHER, BC, SELFPAY ==
[2022-03-29 22:48] VITALS: BP 112/60; PULSE 100; RESP 20; TEMP 37; O2SAT 98
[2022-03-29] MEDS: TETANUS,DIPHTHERIA,AC PERTUSSIS ADULT 0.5 ML (ADACEL) (23:08)
[2022-03-29] MEDS: ACETAMINOPHEN 325 MG TABLET 650 MG PO (23:09)
--- NOTE | 2022-03-29 23:38 | ED.ANIMALBIT ---
HPI - Animal Bite General Chief Complaint: Animal Bite Stated Complaint: ambulance Time Seen by Provider: 03/29/22 22:43 Source: patient, EMS and RN notes reviewed Mode of arrival: EMS Limitations: no limitations History of Present Illness MD complaint: animal bite (superficial dog bites to right upper and lower limbs) Onset (ago): hour(s) (1) Animal: dog Mechanism: bite and scratch Location - Extremities: Right: forearm and thigh Pain description: dull and constant Severity scale (1-10): 2 Associated symptoms: erythema and bleeding Treatments prior to arrival: wound dressing(s) and pressure Related Data Home Medications Medication Instructions Recorded Confirmed beclomethasone dipropionate 40 1 inh inhalation Q12H 12/30/19 03/29/22 mcg/actuation HFA breath activated aerosol hydrochlorothiazide 25 mg tablet 25 mg PO DAILY 12/30/19 03/29/22 loratadine 10 mg tablet (Claritin) 10 mg PO DAILY 12/30/19 03/29/22 omeprazole 40 mg capsule,delayed 40 mg PO DAILY 12/30/19 03/29/22 release albuterol sulfate 90 mcg/actuation 1 inh inhalation Q4H 05/25/20 03/29/22 aerosol inhaler (Ventolin HFA) cetirizine 10 mg tablet 10 mg PO DAILY PRN Allergy Symptoms 05/25/20 03/29/22 escitalopram oxalate 10 mg tablet 10 mg PO DAILY 06/18/20 03/29/22 trazodone 50 mg tablet 50 mg PO DAILY PRN sleep 06/18/20 03/29/22 Allergies Allergy/AdvReac Type Severity Reaction Status Date / Time Penicillins Allergy Unknown RASH Verified 03/29/22 23:07 Review of Systems Review of Systems: All systems reviewed & are unremarkable except as noted in HPI and below Constitutional: Constitutional: Reports no additional constitutional complaints Eyes: Eyes: Reports no additional eye complaints ENT: Reports system reviewed and no additional complaints, except as documented Cardiovascular: Cardiovascular: Reports no additional cardiovascular complaints Respiratory: Respiratory: Reports no additional respiratory complaints Gastrointestinal: Gastrointestinal: Reports no additional gastrointestinal complaints Genitourinary: Genitourinary: Reports no additional female genitourinary complaints Musculoskeletal: Musculoskeletal: Reports no additional musculoskeletal complaints Integumentary/Breasts: Skin/Breast: Reports system reviewed and no additional complaints, except as docu Neurologic: Reports system reviewed and no additional complaints, except as documented Psychiatric: Psychiatric: Reports no additional psychiatric complaints Endocrine: Endocrine: Reports no additional endocrine complaints Hematologic/Lymphatic: Hematologic/Lymphatic: Reports no additional hematologic/lymphatic complaints Allergic/Immunologic: Allergic/Immunologic: Reports no additional allergic/immunologic complaints PMFSH Past Medical History Medical History Asthma Dog bite GERD (gastroesophageal reflux disease) History of use of contraceptive intrauterine device (IUD) Hypertension Renal stones Surgical History Surgical History Delivery by section History of ankle surgery History of bilateral tubal ligation History of colonoscopy Hx of cholecystectomy Hx of tonsillectomy Social History Social History Smoking status: Former smoker Alcohol intake: former Substance use: never Gender identity (if verbalized by the patient): Female Sexual Orientation (if Verbalized by the Patient): Straight or Heterosexual Exam Const: General: no acute distress and well nourished Nutritional Appearance: well nourished Orientation/consciousness: patient oriented x3 Limitations: no limitations HENMT: Head: normal to inspection Ears: external ears normal, TM's normal bilaterally and EAC's normal Face/Nose/Sinus: Normal external nose present, Normal nares present, normal facial exam and sinus
[2022-03-29] MEDS: IBUPROFEN 400 MG TABLET 800 MG PO (23:53)
[2022-03-29] MEDS: cefTRIAXone 1 GM, LIDOCAINE HCL 1% LOCAL INJ 2.1 ML IM (23:54)
--- NOTE | 2022-03-30 | PC.NURSE ---
Wounds cleansed and dressed per JONATHAN Pichardo as order obtained from ERP Dr Toribio. Pt filled out animal bite report form and faxed as per protocol.
[2022-03-30 00:02] VITALS: BP 160/87; PULSE 97; RESP 20; TEMP 37.2; O2SAT 97
== END 2022-03-30 00:10 | disposition home or self-care (01) ==
PROVIDERS: Emergency Provider Emergency Medicine; PCP Family Medicine
DX: S51.851A Open bite of right forearm, initial encounter (principal); I10 Essential (primary) hypertension; Z87.891 Personal history of nicotine dependence; Z23 Encounter for immunization; W54.0XXA Bitten by dog, initial encounter
CPT/HCPCS: 90471; 90715; 96372; 99283; A4565; A9270; J0696

== ENCOUNTER 2022-04-14 08:51 | Outpatient (CLI) | payer OTHER, BC, SELFPAY ==
--- NOTE | 2022-04-14 11:00 | NEURO_ITS ---
Impression: # Complains of numbness of feet. # Normal nerve conduction study including lateral plantar nerve terminal latency. # No Tarsal Tunnel Syndrome. # Needle/EMG exam not requested. # Could be related to small fiber neuropathy. Motor Nerve Conduction Lower Extremities Peroneal Nerve Conduction Velocity (m/sec) Terminal Latency (msec) Response Voltage(mV) Popliteal space-Ankle Ankle Extensor Dig Brevis Popliteal space Ankle Right 48 3.8 3 3 Left 47 3.8 2 3 Tibial Nerve Conduction Velocity (m/sec) Terminal Latency (msec) Response Voltage(mV) Popliteal space-Ankle Ankle-Extensor Dig Brevis Popliteal space Ankle Right 44 4.4 1 3 Left 41 4.4 2 2 F-waves Peroneal Nerve (ms) Tibial Nerve (ms) Right 47.5 46.9 Left 48.1 47.1 Sensory Nerve Conduction Lower Extremities Sural Nerve Stimulation Terminal Latency (msec) Ankle Response Voltage (uV) Ankle Response Velocity (m/sec) Right 3.4 10 47 Left 3.5 22 46 Superficial Peroneal Nerve Stimulation Terminal Latency (msec) Ankle Response Voltage (uV) Ankle Response Velocity (m/sec) Right 3.4 4 47 Left 3.9 21 41 Right Lateral Plantar= 4.5ms Left Lateral Plantar=4.5ms MTDD
== END 2022-04-14 08:52 | disposition home or self-care (01) ==
LOC: ANHNEURO 08:52
PROVIDERS: PCP Family Medicine; Visit Provider Family Medicine
DX: R20.0 Anesthesia of skin (principal)
CPT/HCPCS: 95911

== ENCOUNTER 2022-05-12 13:14 | Outpatient (CLI) | payer OTHER, SELFPAY ==
--- NOTE | ~2022-05-12 | US_ITS ---
EXAMINATION: US soft tissue UE LT DATE: 05/12/2022 13:41 INDICATION: Left upper limb dog bite and swelling. TECHNIQUE: Multiple grayscale and Doppler ultrasound images of the left upper limb were obtained. COMPARISON: None FINDINGS: There is a 13 x 4 x 9 mm hypoechoic and anechoic subcutaneous mass in left forearm in the p atient's area of concern. There is a 6 mm hypoechoic subcutaneous mass in left forearm. IMPRESSION: 1. 13 mm subcutaneous mass in left forearm, likely a hematoma. 2. 6 mm subcutaneous mass in left forearm, likely inflammation. Reviewed, dictated and finalized at location A. [employer]
== END 2022-05-12 13:15 | disposition home or self-care (01) ==
LOC: CHSIMG 13:16
PROVIDERS: PCP Family Medicine; Visit Provider Family Medicine
DX: M79.89 Other specified soft tissue disorders (principal)
CPT/HCPCS: 76882

== ENCOUNTER 2022-08-30 21:58 | Emergency (ER) | payer BC, SELFPAY ==
[2022-08-31 14:09] LABS: Hematocrit 42.3 % (35.0-49.0); Hemoglobin 13.5 g/dL (12.0-15.0); Mean Corpuscular HGB Conc 31.9 g/dL (32.0-36.0); Mean Corpuscular Hemoglobin 27.6 pg (27.0-31.0); Mean Corpuscular Volume 86.5 fL (78.0-102.0); Platelet Count Result 293 K/mm3 (150-420); Red Blood Count 4.89 M/mm3 (4.20-5.40); Red Cell Distribution Width 14.6 % (11.6-14.4); White Blood Count 8.7 K/mm3 (4.8-10.8)
[2022-08-31 14:10] LABS: Basophils Percent Auto 0.6 % (0.0-1.0); Eosinophils Percent Auto 6.3 % (1.0-6.0); Immature Granulocyte Percent A 0.3 % (0.0-0.0); Lymphocytes Percent Auto 21.9 % (18.0-42.0); Neutrophils Percent Auto 63.8 % (50.0-70.0)
[2022-08-31 14:11] LABS: Basophils Absolute Auto 0.05 K/mm3 (0.00-0.10); Eosinophils Absolute Auto 0.54 K/mm3 (0.02-0.50); Erythrocyte Sedimentation Rate 20 mm/hr (0-20); Immature Granulocyte Absolute 0.03 K/mm3 (0.00-0.00); Monocytes Absolute Auto 0.63 K/mm3 (0.10-0.90); Neutrophils Absolute Auto 5.5 K/mm3 (1.7-7.2)
[2022-08-31 14:12] LABS: Alanine Aminotransferase 65 U/L (14-59); Anion Gap 10 mmol/L (8-16); Aspartate Amino Transferase 27 U/L (15-37); Bilirubin,Total 0.2 mg/dL (0.00-1.00); Blood Urea Nitrogen 15 mg/dL (7-18); Calcium 8.9 mg/dL (8.5-10.1); Carbon Dioxide 32 mmol/L (21-32); Chloride 98 mmol/L (98-108); Estimated Glomerular Filt Rate 51; Glucose 232 mg/dL (70-99); Osmolality Calculated 297 mOsm/kg (285-295); Potassium 3.5 mmol/L (3.5-5.1); Sodium 140 mmol/L (136-145); Uric Acid 6.2 mg/dL (2.6-6.0)
[2022-08-31 14:13] LABS: Albumin Level 3.4 g/dL (3.4-5.0); Alkaline Phosphatase 99 U/L (46-116); Total Protein 7.7 g/dL (6.4-8.2)
== END 2022-08-31 01:59 | disposition home or self-care (01) ==
PROVIDERS: Emergency Provider Emergency Medicine; PCP Family Medicine
DX: M10.9 Gout, unspecified (principal); I10 Essential (primary) hypertension; J45.909 Unspecified asthma, uncomplicated
CPT/HCPCS: 36415; 73630; 80053; 84550; 85025; 85652; 99283

== ENCOUNTER 2022-09-12 19:14 | Emergency (ER) | payer BC, SELFPAY ==
[2022-09-12 19:15] VITALS: BP 149/93; PULSE 81; RESP 20; TEMP 36.2; O2SAT 98
[2022-09-12 19:28] LABS: Basophils Absolute Auto 0.1 K/mm3 (0.0-0.1); Basophils Percent Auto 0.7 % (0.2-1.2); Eosinophils Absolute Auto 0.4 K/mm3 (0-0.3); Eosinophils Percent Auto 4.3 % (0-4.4); Hematocrit 45.4 % (37.0-47.0); Hemoglobin 14.4 g/dL (12.0-15.0); Immature Granulocyte Absolute 0.04 K/mm3 (0.00-0.031); Immature Granulocyte Percent A 0.4 % (0-0.5); Lymphocytes Absolute Auto 1.59 K/mm3 (0.9-3.2); Mean Corpuscular HGB Conc 31.7 g/dl (32-36); Mean Corpuscular Hemoglobin 27.6 pg (26-34); Mean Platelet Volume 9.9 fl (7.4-10.4); Monocytes Absolute Auto 0.5 K/mm3 (0.1-0.6); Monocytes Percent Auto 5.2 % (2.6-8.5); Neutrophils Absolute Auto 6.8 K/mm3 (1.3-6.7); Neutrophils Percent Auto 72.4 % (45.5-73.1); Platelet Count Result 335 k/mm3 (150-375); Red Blood Count 5.22 M/mm3 (4.2-5.4); Red Cell Distribution Width 15.2 % (11.5-14.5); White Blood Count 9.3 K/mm3 (4.5-10.0)
[2022-09-12 19:38] LABS: Alanine Aminotransferase 96 U/L (6-35); Albumin Level 4.5 g/dL (3.5-5.1); Alkaline Phosphatase 81 U/L (38-126); Anion Gap 8 mmol/L (8-16); Aspartate Amino Transferase 73 U/L (14-36); Bilirubin,Total 0.4 mg/dL (0.2-1.3); Blood Urea Nitrogen 18 mg/dL (7-17); Calcium 9.3 mg/dL (8.4-10.2); Carbon Dioxide 27 mmol/L (22-30); Chloride 103 mmol/L (98-107); Estimated CRCL calculation 68 ml/min; Estimated Glomerular Filt Rate 57; Glucose 197 mg/dL (65-110); Lipase 110 U/L (23-300); Potassium 4.5 mmol/L (3.4-5.0); Sodium 138 mmol/L (137-145)
[2022-09-12 19:38] LABS: Appearance Urine Clear (Clear); Bacteria Urine None Seen /hpf; Bilirubin Urine Negative (Negative); Blood Urine Negative (Negative); Color Urine Yellow (Yellow); Glucose Urine UA Negative (Negative); Ketones Urine Negative (Negative); Leukocyte Esterase Ur Trace LEU/UL (Negative); Nitrate Urine Negative (Negative); Non Pathogenic Casts 0-2; Protein Urine Negative (Negative); RBC Urine 0-2 /hpf (0-2); Squamous Epithelial Cell Urine Occasional /hpf (Few); Urobilinogen Urine 0.2 mg/dL (<2.0); WBC Urine 0-5 /hpf
[2022-09-12 19:44] LABS: Add Urine Microscopic? YES
--- NOTE | 2022-09-12 19:47 | PC.NURSE ---
Pt states she is going to go to [facility] because it is closer to her house. Pt witnessed ambulating out of department with steady gait accompanied by her .
== END 2022-09-12 19:47 | disposition left against medical advice (07) ==
PROVIDERS: Emergency Provider Emergency Medicine; PCP Family Medicine
DX: R10.84 Generalized abdominal pain (principal)
CPT/HCPCS: 36415; 80053; 81001; 81025; 83690; 85025; 99199

== ENCOUNTER 2022-09-12 20:26 | Emergency (ER) | payer BC, SELFPAY ==
--- NOTE | ~2022-09-12 | CT_ITS ---
EXAMINATION: CT abdomen pelvis w con DATE: 09/12/2022 21:40 INDICATION: UMBILICAL ABD PAIN W/ N/D 2 DAYS; HX STONES DIVERTICULITIS TECHNIQUE: Computed tomography (CT) of the abdomen and pelvis was performed with 100 mL Omnipaque-350 intravenous contrast. Automated exposure control and iterative reconstruction technique were employe d. The dose-length product was 1142.54 mGy-cm. COMPARISON: 12/30/2019. FINDINGS: Lower thorax: Unremarkable Liver: Diffuse fatty infiltration. Biliary/Gallbladder: Gallbladder is absent. No bile duct dilation. Pancreas: No mass or duct dilation. Spleen: Normal. Adrenals:No mass. Kidneys: Mild bilateral cortical thinning and scarring. No mass, stone, or hydronephrosis. GI tract: Mild distal esophageal and marked antral wall edema. Wall edema of the proximal duodenum. R ounded defect in the proximal duodenum, possible ulcer. No small or large bowel dilation. Normal appe ndix. Diverticulosis without diverticulitis. Mesentery/Peritoneum: No ascites, mass, or free air. Retroperitoneum: No mass. Atherosclerotic abdominal aortic and/or arterial calcifications. Pelvis: Pelvic organs are within normal limits. Soft Tissues: Soft tissues and body wall unremarkable. Bones: No acute osseous finding. IMPRESSION: Mild esophagitis. Hepatic steatosis. Marked antral gastritis. Proximal duodenitis with possible ulcer in the duodenal bulb. Reviewed, dictated and finalized at location K. IMPRESSION: Mild esophagitis. Hepatic steatosis. Marked antral gastritis. Proximal duodenit is with possible ulcer in the duodenal bulb.
[2022-09-12 20:32] VITALS: BP 154/89; PULSE 85; RESP 18; TEMP 37.1; O2SAT 95
--- NOTE | 2022-09-12 20:48 | ED.ABDPAIN ---
HPI - Abdominal Pain General Chief Complaint: Abdominal Pain Stated Complaint: Abdominal Pain Source: patient Mode of arrival: ambulatory Limitations: no limitations History of Present Illness HPI narrative: 56-year-old white female with a history of fatty liver developed some abdominal pain over the last 24 hours, went to [facility] in [place], had blood drawn and was waiting in the emergency department, and apparently was very busy, and had a certain point she decided to leave and come here. The pain is continuing, there is some nausea, some vomiting, but no high fever, no sinus drainage, cough, shortness of breath, no chest pain, palpitations, near-syncope or syncope. Patient has not had any diarrhea or constipation, denies any dysuria urgency or frequency. The pain is in general, all over, but a little worse in the upper abdomen. Related Data Home Medications Medication Instructions Recorded Confirmed beclomethasone dipropionate 40 1 inh inhalation Q12H PRN 12/30/19 09/12/22 mcg/actuation HFA breath activated Shortness Of Breath aerosol omeprazole 40 mg capsule,delayed 40 mg PO DAILY 12/30/19 09/12/22 release albuterol sulfate 90 mcg/actuation 1 inh inhalation Q4H 05/25/20 09/12/22 aerosol inhaler (Ventolin HFA) cetirizine 10 mg tablet 10 mg PO DAILY PRN Allergy Symptoms 05/25/20 09/12/22 lisinopril 20 mg tablet 20 mg PO DAILY 09/12/22 09/12/22 magnesium 250 mg tablet 250 mg PO DAILY 09/12/22 09/12/22 potassium chloride 10 mEq 20 meq PO DAILY 09/12/22 09/12/22 capsule,extended release Allergies Allergy/AdvReac Type Severity Reaction Status Date / Time Penicillins Allergy Unknown RASH Verified 03/29/22 23:07 Review of Systems Review of Systems: All systems reviewed & are unremarkable except as noted in HPI and below (in HPI) [facility] Past Medical History Medical History Asthma Dog bite GERD (gastroesophageal reflux disease) History of use of contraceptive intrauterine device (IUD) Hypertension Renal stones Surgical History Surgical History Delivery by section History of ankle surgery History of bilateral tubal ligation History of colonoscopy Hx of cholecystectomy Hx of tonsillectomy Social History Social History Smoking status: Former smoker Alcohol intake: former Substance use: never Gender identity (if verbalized by the patient): Female Sexual Orientation (if Verbalized by the Patient): Straight or Heterosexual Exam Narrative: her awake, alert, pleasant, well-oriented, obese, appears uncomfortable but not toxic Const: General: no acute distress and alert Nutritional Appearance: obese Orientation/consciousness: patient oriented x3 Limitations: no limitations HENMT: Head: normal to inspection Eyes: Pupils: Equal, round and reactive pupils present EOM: EOMs intact bilaterally Neck: Neck: normal visual inspection Chest: Chest palpation & inspection: normal inspection of the chest Resp: Effort & Inspection: normal respiratory effort Auscultation: clear to auscultation bilaterally Cardio: Rate: regular rate Rhythm: regular rhythm GI: GI Palp: Yes Soft to palpation, Yes Tenderness to palpation present (GI) (LUQ WITH JUST A HINT OF TENDERNESS IN THE OTHER 3 QUADRANTS), No Guarding due to palpation present (GI), No Rigid due to palpation, No Palpable mass present and No Rebound tenderness present Skin: General skin exam: normal color Rashes: no rashes Neuro: General: patient oriented x3 Speech: normal speech Gait exam (Neuro): Normal gait present Extrem: General: normal to inspection Psych: Mental Status: mental status grossly normal Affect: normal affect Attitude: cooperative Course Course Emergency Course: differential diagnosis includes but is not limited to diverticul
[2022-09-12] MEDS: PANTOPRAZOLE SODIUM IV 40 MG VIAL IV PUSH (21:06)
[2022-09-12] MEDS: LACTATED RINGERS 1,000 ML 999 ML IV CONT (21:06)
[2022-09-12] MEDS: MORPHINE SULFATE (*CRX) 4 MG/ML INJ IV PUSH ×2 (21:08→22:01)
[2022-09-12] MEDS: ONDANSETRON INJ 4 MG/2 ML VIAL IV PUSH (21:08)
[2022-09-12] MEDS: KETOROLAC 30 MG/ML VIAL (*BKC) IV PUSH (21:08)
[2022-09-12 21:37] VITALS: BP 172/87; PULSE 85; RESP 18; O2SAT 97
[2022-09-12] MEDS: MAG HYDROX/ALUMINUM HYD/SIMETH 30 ML, PHENobarb/HYOSCY/ATROPINE/SCOP 32.4 MG, LIDOCAINE... PO (22:02)
[2022-09-12 22:21] VITALS: BP 150/75; PULSE 82; RESP 18; TEMP 36.8; O2SAT 99
== END 2022-09-12 22:25 | disposition home or self-care (01) ==
PROVIDERS: Emergency Provider Emergency Medicine; PCP Family Medicine
DX: K29.80 Duodenitis without bleeding (principal); K26.9 Duodenal ulcer, unspecified as acute or chronic, without hemorrhage or perforation; J45.909 Unspecified asthma, uncomplicated; K21.9 Gastro-esophageal reflux disease without esophagitis; I10 Essential (primary) hypertension; Z87.891 Personal history of nicotine dependence; Z79.51 Long term (current) use of inhaled steroids
CPT/HCPCS: 74177; 96361; 96374; 96375; 96376; 99284; A9270; C9113; J1885; J2270; J2405; J7120; Q9967

== ENCOUNTER 2022-10-24 01:41 | Day surgery (SDC) | payer BC, SELFPAY ==
[2022-10-11 15:15] VITALS: BMI 38.1
[2022-10-24 07:37] VITALS: BMI 37.8
[2022-10-24] MEDS: LACTATED RINGERS 1,000 ML 150 ML IV CONT (07:56)
[2022-10-24 07:57] LABS: Glucose Point of Care 102 mg/dl (65-105)
[2022-10-24 07:59] VITALS: BP 143/65; PULSE 66; RESP 18; TEMP 35.8; O2SAT 100
--- NOTE | 2022-10-24 08:14 | WPDHPUPDATE1 ---
History and Physical Update Update Date/Time: 10/24/22 08:14 History and Physical has been reviewed, including an updated exam of the patient. There are NO changes in the patient's condition. Risks, benefits, and alternatives have been discussed and questions answered. Patient agrees to proceed with procedure.
[2022-10-24] MEDS: BENZOCAINE (*SP) 60 ML SPRAY CAN (HURRICAINE) 1 SPRAY MUCOUS MEM (09:21)
--- NOTE | 2022-10-24 09:29 | SUR.OPER ---
[employer] used oral suction during procedure for excess secretions.
[2022-10-24 09:30] VITALS: BP 140/71; PULSE 83; RESP 21; O2SAT 100
[2022-10-24 09:40] VITALS: BP 136/68; PULSE 77; RESP 22; O2SAT 100
[2022-10-24 09:50] VITALS: BP 135/66; PULSE 78; RESP 17; O2SAT 99
== END 2022-10-24 09:54 | disposition home or self-care (01) ==
PROVIDERS: PCP Family Medicine; Visit Provider Internal Medicine Gastroenterology
PROC: 0DJ08ZZ Inspection of Upper Intestinal Tract, Via Natural or Artificial Opening Endoscopic (ICD-10-PCS; CPT 43235; principal; 2022-10-24 09:00)
DX: R10.13 Epigastric pain (principal); K21.9 Gastro-esophageal reflux disease without esophagitis; R19.7 Diarrhea, unspecified; I10 Essential (primary) hypertension; J45.909 Unspecified asthma, uncomplicated; K76.0 Fatty (change of) liver, not elsewhere classified; R79.89 Other specified abnormal findings of blood chemistry; Z87.891 Personal history of nicotine dependence; Z79.82 Long term (current) use of aspirin; Z79.51 Long term (current) use of inhaled steroids; E66.9 Obesity, unspecified; Z68.37 Body mass index [BMI] 37.0-37.9, adult
CPT/HCPCS: 43239; 82948; 87081; J2704; J7120

== ENCOUNTER 2023-02-21 12:00 | Outpatient (CLI) | payer BC, SELFPAY ==
--- NOTE | ~2023-02-21 | MM_ITS ---
EXAMINATION: MM screening [facility] BI w kamilah HISTORY: Screening mammogram TECHNIQUE: Craniocaudal and mediolateral oblique 3-D tomosynthesis images were obtained and synthetic 2-D images were generated. CAD analysis was submitted and interpreted. COMPARISON: 12/06/2016, 10/30/2015 BREAST PARENCHYMAL COMPOSITION: There are scattered areas of fibroglandular density. FINDINGS: No suspicious mass, calcification, or architectural distortion are identified in either micki ast to suggest malignancy. There has been no suspicious interval change. IMPRESSION: 1. No mammographic evidence of malignancy. 2. Recommend routine screening mammography in one year. BI-RADS Category 1: Negative Reviewed, dictated and finalized at location A.
== END 2023-02-21 12:01 | disposition home or self-care (01) ==
LOC: CHSIMG 12:01
PROVIDERS: PCP Family Medicine; Visit Provider Nurse Practitioner Obstetrics & Gynecology
DX: Z12.31 Encounter for screening mammogram for malignant neoplasm of breast (principal)
CPT/HCPCS: 77063; 77067

== ENCOUNTER 2023-02-22 09:19 | Emergency (ER) | payer BC, SELFPAY ==
--- NOTE | ~2023-02-22 | XR_ITS ---
EXAMINATION: XR chest 1V DATE: 02/22/2023 10:48 INDICATION: Shortness of breath. TECHNIQUE: A single frontal view of the chest was obtained. COMPARISON: Chest two views 05/15/2020 FINDINGS: There is no pneumonia, pleural effusion, or pneumothorax. The heart size is normal. IMPRESSION: 1. No acute cardiopulmonary disease. Reviewed, dictated and finalized at location E.
[2023-02-22 09:21] VITALS: BP 167/88; PULSE 96; RESP 20; TEMP 36.6; O2SAT 96
--- NOTE | 2023-02-22 09:38 | ED.SKABFB ---
HPI - Skin/Abscess/Foreign Bdy General Chief complaint: Skin/Abscess/Foreign Body Stated complaint: allergic reaction Time Seen by Provider: 02/22/23 09:38 Source: patient Mode of arrival: ambulatory Limitations: no limitations History of Present Illness HPI narrative: 57-year-old female with a history of obesity, hypertension, kidney stones, GERD, asthma, hepatic steatosis was started on allopurinol on 02/10/2023 for elevated uric acid level. The patient did not have any history of joint pains. The patient does have a history of kidney stones. The patient presents to the ER with a 1 day history of -- extensive cutaneous rash which is itchy. No throat swelling. No tongue swelling. -- Arthralgias involving bilateral shoulders no fever or chills no chest pain or shortness of breath MD complaint: rash Onset (ago): day(s) ( started yesterday) Tetanus up to date: yes Location: generalized Severity: moderate Quality: pruritic Pain Consistency: constant Relieving factors: none Exacerbating factors: none Context: new medication ( started on allopurinol 10 days ago.) Associated symptoms: nausea, arthralgias and shortness of breath Treatments prior to arrival: none Related Data Home Medications Medication Instructions Recorded Confirmed beclomethasone dipropionate 40 1 inh inhalation Q12H PRN 12/30/19 10/24/22 mcg/actuation HFA breath activated Shortness Of Breath aerosol albuterol sulfate 90 mcg/actuation 1 inh inhalation Q4H PRN Shortness 05/25/20 10/24/22 aerosol inhaler (Ventolin HFA) Of Breath Or Wheezing cetirizine 10 mg tablet 10 mg PO DAILY 05/25/20 10/24/22 lisinopril 20 mg tablet 20 mg PO DAILY 09/12/22 10/24/22 magnesium 250 mg tablet 250 mg PO DAILY 09/12/22 10/24/22 potassium chloride 10 mEq 20 meq PO BID 09/12/22 10/24/22 capsule,extended release metformin 500 mg tablet 1,000 mg PO BID 09/29/22 10/24/22 dicyclomine 10 mg capsule 10 mg PO QID PRN CRAMPING 10/11/22 10/24/22 famotidine 20 mg tablet (Pepcid) 20 mg PO DAILY 06/20/23 07/03/23 Allergies Allergy/AdvReac Type Severity Reaction Status Date / Time Penicillins Allergy Unknown RASH Verified 10/24/22 07:45 Review of Systems Review of Systems: All systems reviewed & are unremarkable except as noted in HPI and below Constitutional: Constitutional: Reports as per HPI, Reports no additional constitutional complaints and Reports weakness Eyes: Eyes: Reports as per HPI and Reports no additional eye complaints ENT: Reports system reviewed and no additional complaints, except as documented and Reports as per HPI Cardiovascular: Cardiovascular: Reports as per HPI and Reports no additional cardiovascular complaints Respiratory: Respiratory: Reports as per HPI and Reports no additional respiratory complaints Gastrointestinal: Gastrointestinal: Reports as per HPI and Reports no additional gastrointestinal complaints Genitourinary: Genitourinary: Reports no additional female genitourinary complaints and Reports as per HPI Musculoskeletal: Musculoskeletal: Reports no additional musculoskeletal complaints, Reports as per HPI and Reports arthralgias Comments: She has arthralgias involving the shoulders, hips which started yesterday. No prior arthralgia. Integumentary/Breasts: Skin/Breast: Reports system reviewed and no additional complaints, except as docu and Reports as per HPI Comments: Extensive generalized rash. Neurologic: Reports system reviewed and no additional complaints, except as documented and Reports as per HPI Psychiatric: Psychiatric: Reports no additional psychiatric complaints and Reports as per HPI Endocrine: Endocrine: Reports no additional endocrine complaints and Reports as per HPI Hematologic/Lymphatic: Hematologic/Lymphatic: Reports no additional hematologic/lymphatic complaints and Reports as per HPI Allergic/Immunologic: Allergic/Immunologic: Reports no additional allergic/immunologic complaints and Reports as
[2023-02-22] MEDS: HYDROcodone/acetaminophen (*CRX) 5-325 MG TABLET 1 TAB PO (10:09)
[2023-02-22 10:12] LABS: Hemoglobin 13.9 g/dL (12.0-15.0); Mean Corpuscular HGB Conc 32.3 g/dL (32.0-36.0); Mean Corpuscular Hemoglobin 29.1 pg (27.0-31.0); Mean Corpuscular Volume 90.1 fL (78.0-102.0); Mean Platelet Volume 9.7 fl (9.2-11.8); Platelet Count Result 261 K/mm3 (150-420); Red Blood Count 4.77 M/mm3 (4.20-5.40); Red Cell Distribution Width 14.1 % (11.6-14.4); White Blood Count 5.5 K/mm3 (4.8-10.8)
[2023-02-22 10:13] LABS: Appearance Urine Clear (Clear); Bilirubin Urine Negative (Negative); Blood Urine Negative (Negative); Color Urine Light Yellow (Yellow); Glucose Urine UA Negative (Negative); Ketones Urine Negative (Negative); Leukocyte Esterase Ur 1+ LEU/UL (Negative); Nitrate Urine Negative (Negative); Protein Urine Negative (Negative); Specific Grav Ur >= 1.030 (1.010-1.020); Urobilinogen Urine 0.2 mg/dL (0.2-1.0)
[2023-02-22 10:18] LABS: Add Urine Microscopic? YES; Bacteria Urine 1+ /hpf; RBC Urine None seen /hpf (0-2); Squamous Epithelial Cell Urine Moderate /hpf (Few); WBC Urine 0-5 /hpf (0-3)
[2023-02-22 10:23] LABS: Band Neutrophils Percent 0 % (0-6); Basophils Absolute Manual 0.05 K/mm3 (0-0.1); Basophils Percent Manual 1 % (0-1); Eosinophils Absolute Manual 0.71 K/mm3 (0.02-0.5); Eosinophils Percent Manual 13 % (1-6); Lymphocytes Absolute Manual 0.71 K/mm3 (1.1-4.5); Lymphocytes Percent Manual 13 % (18-44); Metamyelocytes Percent 0 %; Monocytes Absolute Manual 0.44 K/mm3 (0.1-0.90); Monocytes Percent Manual 8 % (3-9); Myelocytes Percent 0 %; Neutrophils Absolute Manual 3.57 K/mm3 (1.7-7.2); Neutrophils Percent Manual 65 % (46-73); Platelet Estimate Adequate (Adequate); Total Cells Counted 100
--- NOTE | 2023-02-22 10:25 | PC.NURSE ---
PT COMPLAINT OF NAUSEA, DR FORD NOTIFIED
[2023-02-22] MEDS: ONDANSETRON HCL ODT 4 MG TABLET PO (10:28)
[2023-02-22 10:30] LABS: Prothrombin Time 10.9 Seconds (9.50-12.10)
[2023-02-22 10:50] LABS: Lactic Acid Reflex 1.3 mmol/L (0.4-2.0)
[2023-02-22 10:53] LABS: Alanine Aminotransferase 44 U/L (14-59); Albumin Level 3.4 g/dL (3.4-5.0); Alkaline Phosphatase 74 U/L (46-116); Anion Gap 11 mmol/L (8-16); Aspartate Amino Transferase 17 U/L (15-37); Bilirubin,Total 0.5 mg/dL (0.00-1.00); Blood Urea Nitrogen 15 mg/dL (7-18); Calcium 9.6 mg/dL (8.5-10.1); Carbon Dioxide 25 mmol/L (21-32); Chloride 101 mmol/L (98-108); Creatine Kinase 57 U/L (26-192); Estimated CRCL calculation 48 ml/min; Estimated Glomerular Filt Rate 39; Glucose 149 mg/dL (70-99); Lipase 22 U/L (16-77); Osmolality Calculated 287 mOsm/kg (285-295); Sodium 137 mmol/L (136-145); Total Protein 7.6 g/dL (6.4-8.2); Troponin I < 4.0 ng/L (0.00-60.4)
[2023-02-22 10:54] LABS: CRP 4.7 mg/dL (0.0-0.9)
[2023-02-22] MEDS: methylPREDNISolone SOD SUCC 125 MG VIAL IM (11:04)
[2023-02-22 11:08] VITALS: BP 119/61; PULSE 77; RESP 20; O2SAT 100
[2023-02-22 12:15] VITALS: BP 120/61; PULSE 77; RESP 20; O2SAT 97
--- NOTE | 2023-02-26 13:40 | PC.NURSE ---
urine culture reviewed not indicative of uti
[2023-02-27 15:07] LABS: Hepatitis A Antibody IgM Nonreactive; Hepatitis B Core Antibody Nonreactive (Nonreactive); Hepatitis B Surface Antigen Nonreactive (Nonreactive); Hepatitis C Virus Antibody Nonreactive
== END 2023-02-22 12:16 | disposition home or self-care (01) ==
PROVIDERS: Emergency Provider Internal Medicine Critical Care Medicine; PCP Family Medicine
DX: D72.12 Drug rash with eosinophilia and systemic symptoms syndrome (principal); N28.9 Disorder of kidney and ureter, unspecified; M25.512 Pain in left shoulder; M25.511 Pain in right shoulder; R06.02 Shortness of breath; I10 Essential (primary) hypertension; Z79.899 Other long term (current) drug therapy; Z87.442 Personal history of urinary calculi
CPT/HCPCS: 36415; 71045; 80053; 80074; 81001; 82550; 83605; 83690; 84484; 85025; 85610; 86038; 86140; 87086; 87088; 96372; 99284; A9270; J2930

== ENCOUNTER 2023-02-22 15:59 | Emergency (ER) | payer BC, SELFPAY ==
[2023-02-22] VITALS (9 sets, daily range): BP systolic 135–176; BP diastolic 59–92; PULSE 74–102; RESP 14–21; TEMP 36.6; O2SAT 93–97
[2023-02-22] MEDS: EPINEPHrine HCL INJ 1 MG/ML AMPUL 0.3 MG IM (17:01)
[2023-02-22] MEDS: diphenhydrAMINE HCl INJ 50 MG/ML VIAL 25 MG IV PUSH (17:01)
[2023-02-22] MEDS: FAMOTIDINE 20 MG/2 ML VIAL IV PUSH (17:01)
[2023-02-22 17:08] LABS: Hematocrit 44.9 % (37.0-47.0); Hemoglobin 14.1 g/dL (12.0-15.0); Mean Corpuscular HGB Conc 31.4 g/dl (32-36); Mean Corpuscular Hemoglobin 28.3 pg (26-34); Mean Corpuscular Volume 90.2 fl (80-100); Mean Platelet Volume 10.1 fl (7.4-10.4); Platelet Count Result 270 k/mm3 (150-375); Red Blood Count 4.98 M/mm3 (4.2-5.4); Red Cell Distribution Width 14.5 % (11.5-14.5); White Blood Count 5.4 K/mm3 (4.5-10.0)
--- NOTE | 2023-02-22 17:25 | ED.ALLEREA ---
HPI - Allergic Reaction General Chief complaint: Allergic Reaction Stated complaint: rash, allergic rxn to gout medication Time Seen by Provider: 02/22/23 16:24 History of Present Illness HPI narrative: Patient is a 57-year-old female who presents ER with concerns for allergic reaction. Recently started allopurinol in the last 10 days. She has developed itching rash to the arms and trunk. She is also beginning to feel a tickle in her throat. She was seen earlier today at [facility] and given steroids. She feels as if she is only gotten worse. No fevers chills or sweats. No wheezing. No hypoxia. Of note patient is also on lisinopril and this was not discontinued. Last dose of any medication was at 11 PM yesterday. No previous history of drug allergy. Patient was prescribed prednisone for home. Related Data Home Medications Medication Instructions Recorded Confirmed beclomethasone dipropionate 40 1 inh inhalation Q12H PRN 12/30/19 10/24/22 mcg/actuation HFA breath activated Shortness Of Breath aerosol albuterol sulfate 90 mcg/actuation 1 inh inhalation Q4H PRN Shortness 05/25/20 10/24/22 aerosol inhaler (Ventolin HFA) Of Breath Or Wheezing cetirizine 10 mg tablet 10 mg PO DAILY 05/25/20 10/24/22 lisinopril 20 mg tablet 20 mg PO DAILY 09/12/22 10/24/22 magnesium 250 mg tablet 250 mg PO DAILY 09/12/22 10/24/22 potassium chloride 10 mEq 20 meq PO BID 09/12/22 10/24/22 capsule,extended release metformin 500 mg tablet 1,000 mg PO BID 09/29/22 10/24/22 dicyclomine 10 mg capsule 10 mg PO QID PRN CRAMPING 10/11/22 10/24/22 famotidine 20 mg tablet (Pepcid) 20 mg PO DAILY 10/11/22 10/24/22 Allergies Allergy/AdvReac Type Severity Reaction Status Date / Time Penicillins Allergy Unknown RASH Verified 02/22/23 16:19 allopurinol AdvReac Rash Verified 02/22/23 16:19 Review of Systems Review of Systems: All systems reviewed & are unremarkable except as noted in HPI and below Constitutional: Constitutional: Denies chills, Denies fatigue and Denies fever(s) ENT: Denies nasal congestion and Reports sore throat Cardiovascular: Cardiovascular: Denies chest pain, Denies rapid heart rate and Denies radiating jaw, neck or arm pain Respiratory: Respiratory: Denies cough, Denies dyspnea and Denies wheezing Gastrointestinal: Gastrointestinal: Denies abdominal pain, Denies nausea and Denies vomiting Integumentary/Breasts: Skin/Breast: Reports pruritus, Reports erythema and Reports rash PMFSH Past Medical History Medical History Abnormal digestive system diagnostic imaging Acute diarrhea Asthma Colon cancer screening Dog bite Elevated LFTs GERD (gastroesophageal reflux disease) Hepatic steatosis History of use of contraceptive intrauterine device (IUD) Hypertension Renal stones Surgical History Surgical History Delivery by section History of ankle surgery History of bilateral tubal ligation History of colonoscopy Hx of cholecystectomy Hx of tonsillectomy Social History Social History Smoking status: Never smoker Alcohol intake: former Substance use: former Substance use type: marijuana and crack/cocaine Living arrangements: with family Gender identity (if verbalized by the patient): Female Sexual Orientation (if Verbalized by the Patient): Straight or Heterosexual Spiritual care concerns: No Exam Narrative: GENERAL: Well-appearing, well-nourished, and in no acute distress. HEAD: Normocephalic, atraumatic. EYES: PERRL and EOMI. ENT: Mucous membranes moist. Normal-appearing posterior oropharynx. No angioedema visualized. NECK: Supple. CHEST: Clear to auscultation. No respiratory distress. HEART: Regular rate and rhythm. Normal peripheral pulses. ABDOMEN: Soft, nontender, nondistended. EXTREMITIES: Normal range
[2023-02-22 17:47] LABS: Alanine Aminotransferase 45 U/L (6-35); Albumin Level 4.4 g/dL (3.5-5.1); Alkaline Phosphatase 71 U/L (38-126); Anion Gap 11 mmol/L (8-16); Aspartate Amino Transferase 33 U/L (14-36); Bilirubin,Total 0.6 mg/dL (0.2-1.3); Blood Urea Nitrogen 18 mg/dL (7-17); Calcium 9.4 mg/dL (8.4-10.2); Carbon Dioxide 20 mmol/L (22-30); Chloride 103 mmol/L (98-107); Estimated CRCL calculation 60 ml/min; Estimated Glomerular Filt Rate 51; Glucose 288 mg/dL (65-110); Potassium 4.3 mmol/L (3.4-5.0); Sodium 134 mmol/L (137-145)
[2023-02-22 17:53] LABS: Band Neutrophils Percent 6 % (0-6); Lymphocytes Absolute Manual 0.27 K/mm3 (1.1-4.5); Monocytes Percent Manual 2 % (3-9); Neutrophils Absolute Manual 5.02 K/mm3 (1.7-7.2); Neutrophils Percent Manual 87 % (46-73); Nucleated Red Blood Cells 1 %; Platelet Estimate Adequate (Adequate); Schistocytes None Seen (NORMAL); Total Cells Counted 100
[2023-02-22 17:54] LABS: Hypochromasia 1+ (NORMAL)
[2023-02-22] MEDS: HYDROcodone/acetaminophen (*CRX) 5-325 MG TABLET 1 TAB PO (18:51)
== END 2023-02-22 22:45 | disposition home or self-care (01) ==
PROVIDERS: Emergency Provider Emergency Medicine; PCP Family Medicine
DX: L27.0 Generalized skin eruption due to drugs and medicaments taken internally (principal); T46.4X5A Adverse effect of angiotensin-converting-enzyme inhibitors, initial encounter; T50.4X5A Adverse effect of drugs affecting uric acid metabolism, initial encounter; J45.909 Unspecified asthma, uncomplicated; I10 Essential (primary) hypertension; K21.9 Gastro-esophageal reflux disease without esophagitis; Z87.442 Personal history of urinary calculi; Z90.49 Acquired absence of other specified parts of digestive tract; Z79.84 Long term (current) use of oral hypoglycemic drugs
CPT/HCPCS: 36415; 80053; 85025; 96372; 96374; 96375; 99284; A9270; J0171; J1200

== ENCOUNTER 2024-02-01 17:30 | Observation (INO) | payer BC, SELFPAY ==
[2024-02-01] VITALS (10 sets, daily range): BP systolic 128–156; BP diastolic 53–68; PULSE 63–91; RESP 16–18; TEMP 36.8–37.1; O2SAT 90–97; BMI 41.6
--- NOTE | ~2024-02-01 | CT_ITS ---
CLINICAL INDICATION: Abdominal pain. COMPARISON: 09/12/2022. TECHNIQUE: An enhanced CT of the abdomen and pelvis was performed utilizing multislice spiral [employer] ue reconstructed at 5 mm slice thickness. Coronal and sagittal reconstructions were performed. DLP: 1384 mGy-cm FINDINGS/OBSERVATIONS: Visualized lower thorax:The bilateral lung bases are clear. The heart is of normal size, without pericardial effusion. Small hiatal hernia is present. Liver: The liver is not enlarged and demonstrates homogeneous attenuation and enhancement. Gallbladder and biliary system: The gallbladder is surgically absent. Pancreas: The pancreas enhances homogeneously without ductal dilatation. Spleen: The spleen is not enlarged and enhances homogeneously. Kidneys: The bilateral kidneys enhance symmetrically, without hydronephrosis or renal calculi. Adrenal glands: Unremarkable Gastrointestinal tract: Mural thickening and surrounding inflammatory change within the sigmoid colon with multiple diverticula, findings suggesting acute diverticulitis for which clinical consultation is needed. No drainable fluid collection. No gross perforation. Appendix:The air-filled appendix is of normal caliber (series 3, image 122). Vasculature: Unremarkable Lymph nodes: Nonpathologically enlarged lymph nodes within the retroperitoneum and at the mesentery, a nonspecific finding. Pelvic structures:The uterus is anteverted and anteflexed, and otherwise unremarkable. The bladder is decompressed. Body wall and musculoskeletal: Small fat-containing umbilical hernia is present. Degenerative disease within the lumbosacral spine, with joint space narrowing, osteophyte formation and vacuum phenomena. IMPRESSION: Acute diverticulitis of the sigmoid colon without a drainable fluid collection or gross perforation. Reviewed, dictated and finalized at location A.
--- NOTE | 2024-02-01 17:51 | ECG_ITS ---
Test Date: 2024-02-01 18:05:05 Measurements Intervals [place] Rate: 86 P: 53 [place]: 148 QRS: 11 QRSD: 92 T: 44 QT: 367 QTc: 441 Interpretive Statements SINUS RHYTHM POSSIBLE ANTERIOR MYOCARDIAL INFARCTION , PROBABLY OLD [30 ms Q WAVE IN V3/V4, OR R < 0.2 mV IN V4] ABNORMAL ECG No previous ECG available for comparison Electronically Signed On 02-02-2024 12:43:55 CDT by Jered Cassidy M.D.
[2024-02-01] MEDS: SODIUM CHLORIDE 0.9% IV 1,000 ML 999 ML IV CONT (18:16)
[2024-02-01] MEDS: MORPHINE SULFATE (*CRX) 4 MG/ML INJ IV PUSH (18:17)
[2024-02-01] MEDS: ONDANSETRON INJ 4 MG/2 ML VIAL IV PUSH (18:17)
[2024-02-01 18:22] LABS: Basophils Absolute Auto 0.05 K/mm3 (0.00-0.10); Basophils Percent Auto 0.6 % (0.0-1.0); Eosinophils Absolute Auto 0.27 K/mm3 (0.02-0.50); Eosinophils Percent Auto 3.2 % (1.0-6.0); Hematocrit 42.5 % (35.0-49.0); Hemoglobin 13.9 g/dL (12.0-15.0); Immature Granulocyte Absolute 0.03 K/mm3 (0.00-0.00); Immature Granulocyte Percent A 0.4 % (0.0-0.0); Lymphocytes Absolute Auto 1.26 K/mm3 (1.10-4.50); Lymphocytes Percent Auto 14.7 % (18.0-42.0); Mean Corpuscular HGB Conc 32.7 g/dL (32-36); Mean Corpuscular Volume 88.5 fL (78.0-102.0); Mean Platelet Volume 9.9 fl (9.2-11.8); Monocytes Absolute Auto 0.53 K/mm3 (0.10-0.90); Monocytes Percent Auto 6.2 % (2.0-11.0); Neutrophils Absolute Auto 6.42 K/mm3 (1.70-7.20); Neutrophils Percent Auto 74.9 % (50.0-70.0); Platelet Count Result 295 K/mm3 (150-420); Red Cell Distribution Width 14.4 % (11.6-14.4); White Blood Count 8.6 K/mm3 (4.8-10.8)
[2024-02-01 18:43] LABS: INR 0.9; Partial Thromboplastin Time 30.8 Sec (23.9-30.70); Prothrombin Time 9.7 Seconds (9.50-12.1)
[2024-02-01 18:47] LABS: Alanine Aminotransferase 25 U/L (14-59); Albumin Level 3.5 g/dL (3.4-5.0); Alkaline Phosphatase 71 U/L (46-116); Anion Gap 8 mmol/L (4-12); Aspartate Amino Transferase 14 U/L (15-37); Bilirubin,Total 0.2 mg/dL (0.00-1.00); Blood Urea Nitrogen 18 mg/dL (7-18); Calcium 9.3 mg/dL (8.5-10.1); Carbon Dioxide 28 mmol/L (21-32); Chloride 104 mmol/L (98-108); Estimated CRCL calculation 57 ml/min; Estimated Glomerular Filt Rate 45; Glucose 132 mg/dL (70-99); Lactic Acid Reflex 1.5 mmol/L (0.4-2.0); Lipase 33 U/L (16-77); Osmolality Calculated 293 mOsm/kg (285-295); Potassium 3.6 mmol/L (3.5-5.1); Sodium 140 mmol/L (136-145); Total Protein 7.5 g/dL (6.4-8.2)
[2024-02-01 18:52] LABS: Add Urine Microscopic? YES; Appearance Urine Clear (Clear); Bilirubin Urine Negative (Negative); Blood Urine Negative (Negative); Color Urine Light Yellow (Yellow); Glucose Urine UA Negative (Negative); Ketones Urine Negative (Negative); Leukocyte Esterase Ur Trace LEU/UL (Negative); Nitrate Urine Negative (Negative); Protein Urine Negative (Negative); Specific Grav Ur >= 1.030 (1.010-1.020); Urobilinogen Urine 0.2 mg/dL (0.2-1.0); pH Urine 5.5 (5.0-8.0)
[2024-02-01 18:57] LABS: Bacteria Urine 1+ /hpf; RBC Urine 0-2 /hpf (0-2); Squamous Epithelial Cell Urine Moderate /hpf (Few)
[2024-02-01] MEDS: MORPHINE SULFATE (*CRX) 2 MG/ML INJ IV PUSH (19:57)
--- NOTE | 2024-02-01 20:07 | ED.ABDPAIN ---
HPI - Abdominal Pain General Chief Complaint: Abdominal Pain Stated Complaint: Lower Abdominal Pain Time Seen by Provider: 02/01/24 17:37 Source: patient Mode of arrival: ambulatory Limitations: no limitations History of Present Illness HPI narrative: this is a 58 year female with a history of diverticulitis presents with some left lower quadrant abdominal pain started earlier today with some currently no nausea vomiting no fever chills no chest pain shortness of breath no diarrhea or constipation. Patient denies any hematuria no dysuria no flank pain. MD elicited complaint: abdominal pain Onset (ago): hour(s) Pain Consistency: constant Severity: severe Pain scale (0-10): 8 Quality: aching Radiation: LLQ Exacerbating factors: nothing Relieving factors: nothing Related Data Home Medications Medication Instructions Recorded Confirmed beclomethasone dipropionate 40 1 inh inhalation Q12H PRN 12/30/19 10/24/22 mcg/actuation HFA breath activated Shortness Of Breath aerosol albuterol sulfate 90 mcg/actuation 1 inh inhalation Q4H PRN Shortness 05/25/20 10/24/22 aerosol inhaler (Ventolin HFA) Of Breath Or Wheezing cetirizine 10 mg tablet 10 mg PO DAILY 05/25/20 10/24/22 lisinopril 20 mg tablet 20 mg PO DAILY 09/12/22 10/24/22 magnesium 250 mg tablet 250 mg PO DAILY 09/12/22 10/24/22 potassium chloride 10 mEq 20 meq PO BID 09/12/22 10/24/22 capsule,extended release metformin 500 mg tablet 1,000 mg PO BID 09/29/22 10/24/22 dicyclomine 10 mg capsule 10 mg PO QID PRN CRAMPING 10/11/22 10/24/22 famotidine 20 mg tablet (Pepcid) 20 mg PO DAILY 10/11/22 10/24/22 Allergies Allergy/AdvReac Type Severity Reaction Status Date / Time Penicillins Allergy Unknown RASH Verified 02/01/24 18:30 allopurinol AdvReac Rash Verified 02/01/24 18:30 Review of Systems Review of Systems: All systems reviewed & are unremarkable except as noted in HPI and below PMFSH Past Medical History Medical History Abnormal digestive system diagnostic imaging Acute diarrhea Asthma Colon cancer screening Dog bite Elevated LFTs GERD (gastroesophageal reflux disease) Hepatic steatosis History of use of contraceptive intrauterine device (IUD) Hypertension Renal stones Surgical History Surgical History Delivery by section History of ankle surgery History of bilateral tubal ligation History of colonoscopy Hx of cholecystectomy Hx of tonsillectomy Social History Social History Smoking status: Never smoker Alcohol intake: former Substance use: former Substance use type: marijuana and crack/cocaine Living arrangements: with family Gender identity (if verbalized by the patient): Female Sexual Orientation (if Verbalized by the Patient): Straight or Heterosexual Spiritual care concerns: No Exam Const: General: healthy appearing and no acute distress Nutritional Appearance: well nourished and obese Orientation/consciousness: patient oriented x3 Limitations: no limitations Neck: Neck: normal visual inspection and no lymphadenopathy Chest: Chest palpation & inspection: normal inspection of the chest Resp: Effort & Inspection: normal respiratory effort Auscultation: clear to auscultation bilaterally Cardio: Rate: regular rate Rhythm: regular rhythm GI: GI Palp: Yes Soft to palpation and Yes Tenderness to palpation present (GI) Auscultation: normal bowel sounds : General: Yes bladder normal to palpation Urinary Catheter: Urinary Catheter: patent and draining Back/Spine/Pelvis: Back: no CVA tenderness Skin: General skin exam: normal color Rashes: no rashes Neuro: General: patient oriented x3 Cranial nerves: Yes Nystagmus not present Extrem: General: normal to inspection, no clubbing, cyanosis or edema and no pedal edema Course Course Emergency Course: Patient with abdominal pain CT scan that shows acute diverticulitis, patient received IV fluids, and 4mg of IV morphine which reduced her pain level today is 0 but had creeped up to a 4 and received another 2mg of mg of morphine IV. Blood work performed was unremarkable vitals are stable patient received IV Cipro along with IV metronidazole and will admit to hospitalist service for acute diverticulitis. UA performed also shows UTI which will be covered with Cipro. Vital Signs Vital signs: Vital Signs Temperature 37.1 C 02/01/24 17:30 Pulse Rate 91 02/01/24 17:30 Respiratory Rate 18 02/01/24 17:30 Blood Pressure 152/60 H 02/01/24 17:30 Pulse Oximetry 97 02/01/24 17:30 Oxygen Delivery Room Air 02/01/24 17:30 Temperature 37.1 C 02/01/24 17:30 Pulse Rate 63 02/01/24 18:41 Respiratory Rate 16 02/01/24 18:41 Blood Pressure 156/64 H 02/01/24 18:41 Pulse Oximetry 95 02/01/24 18:41 Oxygen Delivery Room Air 02/01/24 17:30 MDM - Abdominal Pain Lab Data 02/01/24 18:17 02/01/24 18:17 Labs: Lab Results 02/01/24 Range/Units 18:17 WBC 8.6 (4.8-10.8) K/mm3 RBC 4.80 (4.20-5.40) M/mm3 Hgb 13.9 (12.0-15.0) g/dL Hct 42.5 (35.0-49.0) % MCV 88.5 (78.0-102.0) fL MCH 29.0 (27.0-31.0) pg MCHC 32.7 (32-36) g/dL RDW 14.4 (11.6-14.4) % Plt Count 295 (150-420) K/mm3 MPV 9.9 (9.2-11.8) fl Immature Gran % (Auto) 0.4 H (0.0-0.0) % Neut % (Auto) 74.9 H (50.0-70.0) % Lymph % (Auto) 14.7 L (18.0-42.0) % [place] % (Auto) 6.2 (2.0-11.0) % Eos % (Auto) 3.2 (1.0-6.0) % Baso % (Auto) 0.6 (0.0-1.0) % Lymph # (Auto) 1.26 (1.10-4.50) K/mm3 [place] # (Auto) 0.53 (0.10-0.90) K/mm3 Eos # (Auto) 0.27 (0.02-0.50) K/mm3 Baso # (Auto) 0.05 (0.00-0.10) K/mm3 Abs Immat Gran (auto) 0.03 H (0.00-0.00) K/mm3 Absolute Neuts (auto) 6.42 (1.70-7.20) K/mm3 Absolute Nucleated RBC 0.00 (0.00-0.00) K/mm3 Nucleated RBC % 0.0 (0-0.0) % PT 9.7 (9.50-12.1) Seconds INR 0.9 APTT 30.8 H (23.9-30.70) Sec Sodium 140 (136-145) mmol/L Potassium 3.6 (3.5-5.1) mmol/L Chloride 104 (98-108) mmol/L Carbon Dioxide 28 (21-32) mmol/L Anion Gap 8 (4-12) mmol/L BUN 18 (7-18) mg/dL Creatinine 1.22 H (0.55-1.02) mg/dL Estim Creat Clear Calc 57 ml/min Estimated GFR 45 L (59 - ) Glucose 132 H (70-99) mg/dL Calculated Osmolality 293 (285-295) mOsm/kg Lactic Acid 1.5 (0.4-2.0) mmol/L Calcium 9.3 (8.5-10.1) mg/dL Total Bilirubin 0.2 (0.00-1.00) mg/dL AST 14 L (15-37) U/L ALT 25 (14-59) U/L Alkaline Phosphatase 71 (46-116) U/L Total Protein 7.5 (6.4-8.2) g/dL Albumin 3.5 (3.4-5.0) g/dL Lipase 33 (16-77) U/L Urine Color Light yellow (Yellow) Urine Appearance Clear (Clear) Urine pH 5.5 (5.0-8.0) Ur Specific [place] >= 1.030 H (1.010-1.020) Urine Protein Negative (Negative) Urine Glucose (UA) Negative (Negative) Urine Ketones Negative (Negative) Ur Blood (Man) Negative (Negative) Urine Nitrate Negative (Negative) Urine Bilirubin Negative (Negative) Urine Urobilinogen 0.2 (0.2-1.0) mg/dL Leukocyte Esterase Rfl Trace H (Negative) SON/UL Urine RBC 0-2 (0-2) /hpf Urine WBC 4-6 H (0-3) /hpf Ur Squamous Epith Cells Moderate H (Few) /hpf Urine Bacteria 1+ H (None) /hpf Imaging Data Radiologist's impression: ITS Impressions Abdomen/Pelvis CT 02/01/24 19:48 IMPRESSION: Acute diverticulitis of the sigmoid colon without a drainable fluid collection or gross perforation. Critical Care Time Critical Care Time Critical Care Time: No Discharge Plan Discharge Clinical Impression: Acute diverticulitis UTI (urinary tract infection) Qualifiers: Urinary tract infection type: site unspecified Hematuria presence: without hematuria Qualified Code(s): N39.0 - Urinary tract infection, site not specified Patient Disposition: Acute Care Hospital [facility] Condition: Guarded Prognosis Prescriptions: No Action potassium chloride 10 mEq capsule, extended release 20 meq PO BID lisinopril 20 mg tablet 20 mg PO DAILY magnesium 250 mg Tablet 250 mg PO DAILY Patient Comments: ON HOLD CURRENTLY prednisone 50 mg tablet 50 mg PO DAILY Qty: 14 0RF beclomethasone dipropionate 40 mcg/actuation Hfa Aerosol Breath Activated 1 inh INHALATION Q12H PRN (Reason: Shortness Of Breath) albuterol sulfate [Ventolin HFA] 90 mcg/actuation HFA aerosol inhaler 1 inh inhalation Q4H PRN (Reason: Shortness Of Breath Or Wheezing) cetirizine 10 mg tablet 10 mg PO DAILY metformin 500 mg tablet 1,000 mg PO BID omeprazole 40 mg capsule,delayed release(DR/EC) 40 mg PO BID Qty: 60 3RF ondansetron 4 mg tablet,disintegrating 4 mg PO Q6H PRN (Reason: nausea and vomiting) Qty: 20 0RF famotidine [Pepcid] 20 mg tablet 20 mg PO DAILY dicyclomine 10 mg capsule 10 mg PO QID PRN (Reason: CRAMPING) diphenhydramine HCl [Benadryl] 25 mg capsule 25 mg PO TID PRN (Reason: allergic reaction) Qty: 14 0RF famotidine [Pepcid] 20 mg tablet 20 mg PO BID Qty: 14 0RF Follow-up/Referrals: Pramod Phillips MD [Primary Care Provider] - Time of Disposition: 20:13
--- NOTE | 2024-02-01 20:28 | PC.NURSE ---
CALL TO [facility] ON 2ND FLOOR FOR ADMISSION BED REQUEST.
[2024-02-01] MEDS: metroNIDAZOLE 250 MG TABLET 500 MG PO (20:43)
[2024-02-01] MEDS: CIPROFLOXACIN 400 MG/D5W 200ML 200 ML 200 MG IVPB (20:48)
--- NOTE | 2024-02-01 21:15 | PC.NURSE ---
PT'S HOME MEDS VERIFIED WITH PT AND HER . DR SOTO NOTIFIED.
[2024-02-01] MEDS: HYDROmorphone HCL INJ (*CRX) 2 MG/ML VIAL 0.5 MG IV PUSH (21:42)
[2024-02-01] MEDS: SODIUM CHLORIDE 0.9% IV 1,000 ML 100 ML IV CONT (21:45)
--- NOTE | 2024-02-01 22:10 | PC.NURSE ---
CALL TO [facility], CHARGE NURSE UPSTAIRS AND NOTIFIED MEDS HOME MEDS HAVE BEEN UPDATED AND SHE DENIES FURTHER QUESTIONS AND PT READY TO ADMIT TO 226.
--- NOTE | 2024-02-01 22:36 | ADMGEN ---
This patient, Madonna Mi, was admitted to 2nd Floor Room 226-1. Patient/family oriented to hospital policies and general routines including ID bracelet, bed and alarms, visiting hours, pain management, procedures, bathroom and other care routines, personal items, smoking policy, room service/diet, and visiting hours. Information on how to activate the Rapid Response Team has been discussed. Patient/Family are encouraged to report perceived risks to care and to ask questions if they do not understand what they are told or what they should do.
[2024-02-01] MEDS: LORATADINE 10 MG TABLET PO (23:46)
[2024-02-01] MEDS: POTASSIUM CHLORIDE 20 MEQ ER TABLET PO (23:46)
[2024-02-01] MEDS: PIOGLITAZONE HCL 15 MG TAB 30 MG PO (23:46)
[2024-02-01] MEDS: METOPROLOL SUCCINATE EXT REL 25 MG TABCR PO (23:47)
[2024-02-02] VITALS: BP 174/56; PULSE 68; RESP 20; TEMP 36.4; O2SAT 95
[2024-02-02] MEDS: MORPHINE SULFATE (*CRX) 4 MG/ML INJ IM (01:36)
[2024-02-02] MEDS: MORPHINE SULFATE (*CRX) 4 MG/ML INJ IV PUSH (05:45)
[2024-02-02 05:48] LABS: Basophils Absolute Auto 0.04 K/mm3 (0.00-0.10); Basophils Percent Auto 0.5 % (0.0-1.0); Eosinophils Absolute Auto 0.23 K/mm3 (0.02-0.50); Hematocrit 40.1 % (35.0-49.0); Hemoglobin 12.7 g/dL (12.0-15.0); Immature Granulocyte Absolute 0.03 K/mm3 (0.00-0.00); Immature Granulocyte Percent A 0.4 % (0.0-0.0); Lymphocytes Percent Auto 20.6 % (18.0-42.0); Mean Corpuscular HGB Conc 31.7 g/dL (32-36); Mean Corpuscular Hemoglobin 28.6 pg (27.0-31.0); Mean Corpuscular Volume 90.3 fL (78.0-102.0); Monocytes Absolute Auto 0.61 K/mm3 (0.10-0.90); Monocytes Percent Auto 7.9 % (2.0-11.0); Neutrophils Absolute Auto 5.26 K/mm3 (1.70-7.20); Neutrophils Percent Auto 67.6 % (50.0-70.0); Platelet Count Result 274 K/mm3 (150-420); Red Blood Count 4.44 M/mm3 (4.20-5.40); Red Cell Distribution Width 14.6 % (11.6-14.4); White Blood Count 7.8 K/mm3 (4.8-10.8)
[2024-02-02 06:01] LABS: Alanine Aminotransferase 19 U/L (14-59); Albumin Level 3.1 g/dL (3.4-5.0); Alkaline Phosphatase 69 U/L (46-116); Anion Gap 4 mmol/L (4-12); Aspartate Amino Transferase 10 U/L (15-37); Bilirubin,Total 0.4 mg/dL (0.00-1.00); Blood Urea Nitrogen 15 mg/dL (7-18); Calcium 8.6 mg/dL (8.5-10.1); Carbon Dioxide 30 mmol/L (21-32); Chloride 106 mmol/L (98-108); Estimated CRCL calculation 68 ml/min; Estimated Glomerular Filt Rate 55; Glucose 107 mg/dL (70-99); Osmolality Calculated 290 mOsm/kg (285-295); Potassium 4.1 mmol/L (3.5-5.1); Sodium 140 mmol/L (136-145); Total Protein 6.8 g/dL (6.4-8.2)
[2024-02-02 08:00] VITALS: BP 127/53; PULSE 76; RESP 17; TEMP 36.3; O2SAT 97
[2024-02-02] MEDS: SODIUM CHLORIDE 0.9% IV 1,000 ML 100 ML IV CONT ×2 (09:32→21:33)
[2024-02-02] MEDS: metroNIDAZOLE 500 MG/ISO 100ML 500 MG/100 ML BAG 100 MG IVPB ×2 (09:32→16:41)
[2024-02-02] MEDS: POTASSIUM CHLORIDE 20 MEQ ER TABLET PO ×2 (09:33→16:42)
[2024-02-02] MEDS: PANTOPRAZOLE 40 MG TABLET PO ×2 (09:33→20:52)
[2024-02-02] MEDS: HYDROmorphone HCL INJ (*CRX) 2 MG/ML VIAL 1 MG IV PUSH ×2 (09:41→16:42)
--- NOTE | 2024-02-02 14:32 | P.HP_ITS ---
H&P: HPI History of Present Illness Date/Time: 02/02/24 14:32 Chief Complaint: ABD pain Narrative: Patient is a 58 year old female who presented to the ED with complaints of worsening ABD pain. Patient reported pain started early that day about 4 hours prior to arrival. Patient has a past medical history of diverticulitis, COPD, and diabetes. Patient reported she was tolerated oral intake with nausea but no vomiting. Patient denied CP, SOB, fever or chills or difficulty defecating. CT ABD showed acute diverticulitis of the sigmoid colon with no abscess or perforation. Patient afebrile with normal WBC. Patient was admitted to the medical unit for further treatment of acute diverticulitis. Review of Systems Review of Systems: All systems reviewed & are unremarkable except as noted in HPI and below PMFSH Past Medical History Medical History Abnormal digestive system diagnostic imaging Acute diarrhea Asthma Colon cancer screening Dog bite Elevated LFTs GERD (gastroesophageal reflux disease) Hepatic steatosis History of use of contraceptive intrauterine device (IUD) Hypertension Renal stones Surgical History Surgical History Delivery by section History of ankle surgery History of bilateral tubal ligation History of colonoscopy Hx of cholecystectomy Hx of tonsillectomy Social History Social History Smoking status: Never smoker Alcohol intake: never Substance use: current Substance use type: marijuana Last use: 02/01/2024 Do You Feel Safe in your Home?: Yes Lack of Transportation: No Lack of Food: Never True Current Housing: I Have Housing Concerned About Future Housing: No Difficulty Paying Gas/Electric Bills: No Difficulty Paying for Meds: No Currently Unemployed: No Education: Associate Degree Difficulty w/ Childcare or Family Care: No Living arrangements: with family Gender identity (if verbalized by the patient): Female Sexual Orientation (if Verbalized by the Patient): Straight or Heterosexual Spiritual care concerns: No Meds Home Medications and Allergies Home Medications Medication Instructions Recorded Confirmed Type beclomethasone dipropionate 40 1 inh inhalation Q12H PRN 12/30/19 02/01/24 History mcg/actuation HFA breath activated Shortness Of Breath aerosol albuterol sulfate 90 mcg/actuation 2 inh inhalation Q4H PRN Shortness 05/25/20 02/01/24 History aerosol inhaler (Ventolin HFA) Of Breath Or Wheezing cetirizine 10 mg tablet 10 mg PO HS 05/25/20 02/01/24 History potassium chloride 10 mEq 20 meq PO HS 09/12/22 02/01/24 History capsule,extended release metoprolol succinate 25 mg 25 mg PO HS 02/01/24 02/01/24 History tablet,extended release 24 hr omeprazole 40 mg capsule,delayed 40 mg PO HS 02/01/24 02/01/24 History release pioglitazone 30 mg tablet 30 mg PO HS 02/01/24 02/01/24 History spironolactone 50 mg tablet 50 mg PO HS 02/01/24 02/01/24 History Allergies Allergy/AdvReac Type Severity Reaction Status Date / Time Penicillins Allergy Unknown RASH Verified 02/01/24 18:30 allopurinol AdvReac Rash Verified 02/01/24 18:30 Vital Signs Vital Signs - 24 hr 02/01/24 17:30 02/01/24 18:34 02/01/24 18:41 Temperature 98.7 F Pulse Rate 91 63 Respiratory Rate 18 16 Blood Pressure 152/60 H 156/64 H Pulse Oximetry 97 90 95 Oxygen Delivery Room Air 02/01/24 19:21 02/01/24 19:31 02/01/24 19:46 Temperature Pulse Rate 81 75 75 Respiratory Rate 18 18 18 Blood Pressure 142/68 H 137/55 L 134/60 Pulse Oximetry 96 92 93 Oxygen Delivery Room Air Room Air Room Air 02/01/24 20:01 02/01/24 20:16 02/01/24 20:31 Temperature 98.2 F Pulse Rate 76 77 77 Respiratory Rate 18 18 Blood Pressure 139/53 L 129/57 L 128/57 L Pulse Oximetry 93 92 95 Oxygen Delivery Room Air Room Air Room Air 02/01/24 23:02 02/02/24 00:00 02/02/24 08:00 Temperature 97.6 F 97.3 F L Pulse Rate 68 76 Respiratory Rate 20 17 Blood Pressure 174/56 H 127/53 L Pulse Oximetry 95 95 97 Oxygen Delivery Room Air Room Air Room Air Exam Narrative: Physical Exam: * GENERAL: Alert and oriented x 3. No acute distress. Pleasant obese female * EYES: EOMI. No scleral icterus. PERRLA. * HEENT: Moist mucous membranes. * LUNGS: Clear to auscultation bilaterally. No accessory muscle use. * CARDIOVASCULAR: Regular rate and rhythm. No murmur. No JVD. S1-S2 * ABDOMEN: Soft, non tenderness and non-distended. No palpable masses. * EXTREMITIES: No edema. Non-tender * SKIN: No rashes or lesions. Skin warm, dry. * NEUROLOGIC: No focal neurological deficits. CN II-XII grossly intact * PSYCHIATRIC: Appropriate mood and affect. Good judgement and insight. H&P: Results Labs Labs: Short CBC 02/01/24 02/02/24 Range/Units 18:17 05:26 WBC 8.6 7.8 (4.8-10.8) K/mm3 Hgb 13.9 12.7 (12.0-15.0) g/dL Hct 42.5 40.1 (35.0-49.0) % Plt Count 295 274 (150-420) K/mm3 BMP 02/01/24 02/02/24 18:17 05:26 Sodium 140 140 Potassium 3.6 4.1 Chloride 104 106 Carbon Dioxide 28 30 BUN 18 15 Creatinine 1.22 H 1.03 H Glucose 132 H 107 H Calcium 9.3 8.6 Liver Function 02/01/24 02/02/24 Range/Units 18:17 05:26 Total Bilirubin 0.2 0.4 (0.00-1.00) mg/dL AST 14 L 10 L (15-37) U/L ALT 25 19 (14-59) U/L Alkaline Phosphatase 71 69 (46-116) U/L Albumin 3.5 3.1 L (3.4-5.0) g/dL Urine 02/01/24 Range/Units 18:17 Urine Color Light yellow (Yellow) Urine Appearance Clear (Clear) Urine pH 5.5 (5.0-8.0) Ur Specific [place] >= 1.030 H (1.010-1.020) Urine Protein Negative (Negative) Urine Glucose (UA) Negative (Negative) Imaging CT scan - abdomen: Radiologist's impression: IMPRESSION: Acute diverticulitis of the sigmoid colon without a drainable fluid collection or gross perforation. Assessment and Plan Assessment and plan (1) Acute diverticulitis: Code(s): K57.92 - Diverticulitis of intestine, part unspecified, without perforation or abscess without bleeding Status: Acute Assessment and Plan: * IV Fluids * pain medication * Antiemetics * full liquid diet will advance as tolerated * Ceftriaxone and Flagyl IV will transition to PO at discharge * Normal WBC * CBC daily (2) Diabetes: Code(s): E11.9 - Type 2 diabetes mellitus without complications Status: Acute Assessment and Plan: * Not currently on any medication * Can follow-up with primary care * Accu-Cheks a.cPk HS * sliding scale insulin * Hemoglobin A1c 6.0 * encourage lifestyle modifications and weight loss * Optimize Chriss inhibitors and statins. * Watch for hypoglycemia/hypoglycemic protocol ordered Plan Code status: Full code per patient DVT prophylaxis: SCD's Stress ulcer prophylaxis: Protonix 40 daily PT/OT notes: Ambulatory Disposition: Patient continues admission to the medical unit for further treatment of acute diverticulitis currently on full liquid diet will advance as tolerated. Patient has been afebrile normal WBC can hopefully discharge back home tomorrow if medically stable. Quality VTE Prophylaxis VTE prophylaxis: mechanical ordered -Patient's previous records reviewed on admission -ER notes reviewed in detail on admission -discussed all findings and current treatment plan with patient/Family/POA -Consultations reviewed for recommendations -Patient's disposition for safe discharge discussed with vocational case manager Dictation performed by [employer] direct speech recognition software, therefore office clerk assistant variants and typographical errors may occur. Hospitalist MIPS Advance Care Plan I have confirmed that the patient's Advanced Care Plan is present, code status is documented, or surrogate decision maker is listed in patient medical record.: Yes Medication Reconciliation I have utilized all available resources to obtain, update and review the patients current medications (includes all prescriptions, OTC, herbals, cannabis, and nutritional supplements).: Yes The patient is not eligible for med reconciliation; the patient is in a emergent medical situation where delaying treatment would jeopardize the patients health.: No
[2024-02-02] MEDS: ONDANSETRON HCL ODT 4 MG TABLET PO (15:01)
[2024-02-02] MEDS: HYDROcodone/acetaminophen (*CRX) 5-325 MG TABLET 1 TAB PO (15:01)
[2024-02-02 16:52] LABS: Glucose Point of Care 112 mg/dl (65-105)
[2024-02-02 17:00] VITALS: BP 153/82; PULSE 80; RESP 17; TEMP 37.9; O2SAT 94
[2024-02-02 17:11] VITALS: TEMP 37.9
[2024-02-02] MEDS: ACETAMINOPHEN 325 MG TABLET 650 MG PO (17:11)
[2024-02-02 18:07] VITALS: TEMP 36.3
[2024-02-02] MEDS: PIOGLITAZONE HCL 15 MG TAB 30 MG PO (20:51)
[2024-02-02 20:52] VITALS: PULSE 64
[2024-02-02] MEDS: METOPROLOL SUCCINATE EXT REL 25 MG TABCR PO (20:52)
[2024-02-02] MEDS: LORATADINE 10 MG TABLET PO (20:52)
[2024-02-02 20:54] LABS: Glucose Point of Care 114 mg/dl (65-105)
[2024-02-03] VITALS: BP 128/60; PULSE 64; RESP 18; TEMP 36.4; O2SAT 94
[2024-02-03] MEDS: metroNIDAZOLE 500 MG/ISO 100ML 500 MG/100 ML BAG 100 MG IVPB (01:49)
[2024-02-03] MEDS: ONDANSETRON HCL ODT 4 MG TABLET PO (01:53)
[2024-02-03 05:28] LABS: Hematocrit 38.3 % (35.0-49.0); Mean Corpuscular HGB Conc 31.3 g/dL (32-36); Mean Corpuscular Hemoglobin 28.4 pg (27.0-31.0); Mean Corpuscular Volume 90.8 fL (78.0-102.0); Platelet Count Result 262 K/mm3 (150-420); Red Blood Count 4.22 M/mm3 (4.20-5.40); Red Cell Distribution Width 14.6 % (11.6-14.4); White Blood Count 6.3 K/mm3 (4.8-10.8)
[2024-02-03 05:43] LABS: Alanine Aminotransferase 18 U/L (14-59); Albumin Level 3.1 g/dL (3.4-5.0); Alkaline Phosphatase 61 U/L (46-116); Anion Gap 5 mmol/L (4-12); Aspartate Amino Transferase 11 U/L (15-37); Bilirubin,Total 0.3 mg/dL (0.00-1.00); Blood Urea Nitrogen 10 mg/dL (7-18); Calcium 8.7 mg/dL (8.5-10.1); Carbon Dioxide 30 mmol/L (21-32); Chloride 104 mmol/L (98-108); Estimated CRCL calculation 71 ml/min; Estimated Glomerular Filt Rate 58; Glucose 107 mg/dL (70-99); Osmolality Calculated 287 mOsm/kg (285-295); Potassium 3.9 mmol/L (3.5-5.1); Sodium 139 mmol/L (136-145); Total Protein 6.9 g/dL (6.4-8.2)
[2024-02-03 07:31] LABS: Glucose Point of Care 95 mg/dl (65-105)
[2024-02-03 08:00] VITALS: BP 155/73; PULSE 73; RESP 16; TEMP 36.6; O2SAT 98
--- NOTE | 2024-02-03 08:51 | P.DS_ITS ---
DS: Admitting Diagnosis Discharge Date 02/03/2024 Admitting Diagnosis Acute diverticulitis DS: Discharge Diagnosis Discharge Diagnosis (1) Acute diverticulitis: Code(s): K57.92 - Diverticulitis of intestine, part unspecified, without perforation or abscess without bleeding Status: Acute (2) Diabetes: Code(s): E11.9 - Type 2 diabetes mellitus without complications Status: Acute DS: Summary Hospital Course Reason for hospitalization: acute diverticulitis Hospital Course: Patient was a 58-year-old female who presented to the emergency department with worsening abdominal pain. Patient has a known history diverticulitis patient denied any fevers, chills, chest pain, shortness of breath, blood in stool, naus ea, or vomiting. CT abdomen showed acute diverticulitis of the sigmoid colon no abscess or perforation, labs showed normal WBC and patient remained afebrile however due to patient's abdominal pain she was admitted for treatment of acute diverticulitis. Patient received IV fluids, Levaquin Flagyl as well as pain control, she was initially started on a full liquid diet which following treatment was advance to diabetic diet. Patient remained afebrile during admission and WBC within normal limits no other significant labs noted. Patient on day of discharge was tolerating all oral intake and reported improvement to abdominal pain she was discharged home on p.o. antibiotics Levaquin and Flagyl due to her penicillin allergy educated on the need to complete antibiotics as prescribed as well as providing education diverticulitis diet patient agreed with discharge plan. Patient was discharged home and plan to follow-up with primary care physician. Status at Discharge Functional status at discharge: independent ambulation Time Spent with Patient Time attestation: Total time spent providing and/or coordinating discharge services: Time spent: Greater than 30 minutes Exam Narrative: Physical Exam: * GENERAL: Alert and oriented x 3. No acute distress. Pleasant obese female * EYES: EOMI. No scleral icterus. PERRLA. * HEENT: Moist mucous membranes. * LUNGS: Clear to auscultation bilaterally. No accessory muscle use. * CARDIOVASCULAR: Regular rate and rhythm. No murmur. No JVD. S1-S2 * ABDOMEN: Soft, non tenderness and non-distended. No palpable masses. * EXTREMITIES: No edema. Non-tender * SKIN: No rashes or lesions. Skin warm, dry. * NEUROLOGIC: No focal neurological deficits. CN II-XII grossly intact * PSYCHIATRIC: Appropriate mood and affect. Good judgement and insight. DS: Data Data Completed and Pending Labs on day of discharge: Labs from last 24 hours 02/03/24 02/03/24 02/03/24 07:26 05:02 05:01 WBC 6.3 RBC 4.22 Hgb 12.0 Hct 38.3 MCV 90.8 MCH 28.4 MCHC 31.3 L RDW 14.6 H Plt Count 262 MPV 10.0 Sodium 139 Potassium 3.9 Chloride 104 Carbon Dioxide 30 Anion Gap 5 BUN 10 Creatinine 0.98 Estim Creat Clear Calc 71 Estimated GFR 58 L Glucose 107 H POC Capillary Glucose 95 Hemoglobin A1c Calculated Osmolality 287 Calcium 8.7 Total Bilirubin 0.3 AST 11 L ALT 18 Alkaline Phosphatase 61 Total Protein 6.9 Albumin 3.1 L 02/02/24 02/02/24 02/02/24 20:48 16:47 05:20 WBC RBC Hgb Hct MCV MCH MCHC RDW Plt Count MPV Sodium Potassium Chloride Carbon Dioxide Anion Gap BUN Creatinine Estim Creat Clear Calc Estimated GFR Glucose POC Capillary Glucose 114 H 112 H Hemoglobin A1c 6.0 H Calculated Osmolality Calcium Total Bilirubin AST ALT Alkaline Phosphatase Total Protein Albumin Imaging Radiologist's impression: IMPRESSION: Acute diverticulitis of the sigmoid colon without a drainable fluid collection o r gross perforation. Discharge Plan Discharge Attending physician on discharge: Martin Do Discharging Clinician: Karen Pinzon Anticipated Discharge Date/Time: 02/03/24 08:39 Patient Disposition: Home, Self-Care Activity: may shower, unlimited and as tolerated Diet: diabetic Discharge Instructions: You are being discharged home after treatment for acute diverticulitis. Advance diet as tolerated and complete antibiotic therapy as prescribed. I also recommend increased water intake for hydration. Please review the attached education on diet and disease process. How can you care for yourself at home? ? Keep track of any new symptoms or changes in your symptoms. ? Rest until you feel better. ? Be safe with medicines. Take your medicines exactly as prescribed. Call your doctor if you think you are having a problem with your medicine. ? Do not drive after taking a prescription pain medicine. ? Ensure to follow-up with primary care physician as indicated and provide updated medication list provided to you at discharge. When should you call for help? Call 911 anytime you think you may need emergency care. For example, call if: ? You passed out (lost consciousness). Call your doctor now or seek immediate medical care if: ? You have new symptoms like fever, difficulty breathing, Chest pain, vomiting, or rash. ? You have new or different pain. ? You are confused and are having trouble thinking clearly. ? Your symptoms are getting worse. Watch closely for changes in your health, and be sure to contact your doctor if: ? You do not get better as expected. Patient Instructions: Antibiotic Form, Metronidazole (By mouth), Levofloxacin (By mouth), Diverticulitis (DC), Diverticulitis Diet (DC), Diabetes and Nutrition (DC), Diabetes and Exercise (DC) Patient Language: Marshallese Stand Alone Forms: General Discharge Information, Work/School Release IP Follow-up/Referrals: Pramod Phillips MD [Primary Care Provider] - Other (please call [facility] for a 2week follow up appointment. T) Discharge Medications: New hydrocodone-acetaminophen 5-325 mg Tablet 1 tablet PO Q6H PRN (Reason: Pain Rated 4-6) Qty: 10 0RF metronidazole 500 mg tablet 500 mg PO Q8H Qty: 18 0RF levofloxacin 750 mg tablet 750 mg PO DAILY Qty: 6 0RF Continued potassium chloride 10 mEq capsule, extended release 20 meq PO HS beclomethasone dipropionate 40 mcg/actuation Hfa Aerosol Breath Activated 1 inh INHALATION Q12H PRN (Reason: Shortness Of Breath) omeprazole 40 mg capsule,delayed release(DR/EC) 40 mg PO HS metoprolol succinate 25 mg tablet extended release 24 hr 25 mg PO HS pioglitazone 30 mg tablet 30 mg PO HS spironolactone 50 mg tablet 50 mg PO HS albuterol sulfate [Ventolin HFA] 90 mcg/actuation HFA aerosol inhaler 2 inh inhalation Q4H PRN (Reason: Shortness Of Breath Or Wheezing) cetirizine 10 mg tablet 10 mg PO HS Date of admission: 02/01/24 20:13 Primary Care Provider: Pramod Phillips Admitting Provider: Martin Do Attending physician on admission: Karen Pinzon Condition: Improved Hospitalist MIPS Heart Failure (Exclusion) Patient has history of Heart Transplant or Left Ventricular Assistive Device?: No IF YES, STOP HERE Heart Failure (Qualifier) Patient has current or prior documentation of LVEF less than or equal to 40%, or mod/servere depressed LVSF?: No IF NO, STOP HERE
--- NOTE | 2024-02-03 10:55 | PC.NURSE ---
Discharge instructions given to patient and patient voices understanding. Patient left unit in w/c with all personal items. Patient left hosptial grounds in privately owned vehicle.
--- NOTE | 2024-02-06 12:47 | PC.NURSE ---
Doing ok having nausea today, not a minute to herself since dc home, states did get abx filled and will call dr office today for follow up visit
== END 2024-02-03 10:55 | disposition home or self-care (01) ==
LOC: CHSED 20:13 → CHS2ND 22:07
PROVIDERS: Admitting Provider Internal Medicine; Emergency Provider Emergency Medicine; PCP Family Medicine; Visit Provider Nurse Practitioner Family
DX: K57.32 Diverticulitis of large intestine without perforation or abscess without bleeding (principal); N39.0 Urinary tract infection, site not specified; E11.9 Type 2 diabetes mellitus without complications; J44.9 Chronic obstructive pulmonary disease, unspecified; K21.9 Gastro-esophageal reflux disease without esophagitis; I10 Essential (primary) hypertension; Z79.51 Long term (current) use of inhaled steroids; Z79.84 Long term (current) use of oral hypoglycemic drugs; Z88.0 Allergy status to penicillin
CPT/HCPCS: 36415; 74177; 80053; 81001; 82948; 83036; 83605; 83690; 85025; 85027; 85610; 85730; 87040; 93005; 96361; 96365; 96372; 96375; 96376; 99285; A9270; G0378; J0696; J0744; J1171; J1836; J2270; J2405; J7030; Q9967

== ENCOUNTER 2024-02-25 15:15 | Emergency (ER) | payer BC, SELFPAY ==
[2024-02-25] VITALS (32 sets, daily range): BP systolic 119–199; BP diastolic 49–97; PULSE 68–88; RESP 12–23; TEMP 36.4–36.8; O2SAT 93–100
--- NOTE | ~2024-02-25 | XR_ITS ---
XR chest 1V portable DATE: 02/25/2024 15:33 INDICATION: Chest pain, shortness of breath and cough for one day TECHNIQUE: Portable AP chest on 02/25/2024 at 1530 hours COMPARISON: 02/22/2023 portable AP chest FINDINGS: Normal heart size. No hilar or mediastinal enlargement. No pulmonary infiltrate or consolid ation, pleural effusion or pulmonary vascular congestion or pneumothorax. IMPRESSION: No active cardiopulmonary disease Reviewed, dictated and finalized at location A. ADJUSTER
--- NOTE | 2024-02-25 15:16 | ECG_ITS ---
Test Date: 2024-02-25 15:23:33 Measurements Intervals [place] Rate: 81 P: 59 NV: 157 QRS: 10 QRSD: 91 T: 53 QT: 363 QTc: 422 Interpretive Statements SINUS RHYTHM LEFT VENTRICULAR HYPERTROPHY WITH ST-T CHANGE CANNOT R/O SEPTAL INFARCT, AGE INDETERMINATE BORDERLINE ST ABNORMALITY- ANTEROLATERAL LEADS BASELINE ARTIFACT- I, II, III, AVR, AVL, AVF, V4-V6 ABNORMAL ECG Compared to ECG 02/01/2024 18:05:05 No significant changes Electronically Signed On 02-25-2024 16:52:46 ROOM SERVICE ASSOCIATE by Artemio Kerns D.O.
--- NOTE | 2024-02-25 15:19 | ED_ITS ---
HPI - Chest Pain General Chief Complaint: Chest Pain Stated Complaint: chest pain Source: patient Mode of arrival: ambulatory Limitations: no limitations History of Present Illness HPI narrative: Patient is a 58-year-old female with chest pain substernal and radiates to her mid back as well as diaphoresis. This is the 2nd episode she has had in the last 24 hours. She had 2 hour episode last night that resolved on its own. She is now 1 hour into the same pains of a 2nd episode. No nausea vomiting or diarrhea. No other pain. No history of CAD. He does have strong history of family having MA and in their 50s and 60s. MD complaint: chest pain, chest heaviness and chest discomfort Pertinent past history: other ( Patient has no CAD but family has strong early history of CAD) Onset (ago): day(s) (1) Timing of current episode: episodic Prior episodes: Yes Onset: during rest Pain location: substernal Pain radiation: none Severity: mild Pain scale (0-10): 5 Quality: heaviness, sharp and shooting Relieving factors: nothing Exacerbating factors: nothing Associated symptoms: other ( diaphoresis) Treatment prior to arrival: none Risk Factors Coronary artery disease risk factors: family history of CAD before age 50 ( ages are 50s and 60s) Thoracic aortic dissection risk factors: none Related Data Home Medications Medication Instructions Recorded Confirmed beclomethasone dipropionate 40 1 inh inhalation Q12H PRN 12/30/19 02/01/24 mcg/actuation HFA breath activated Shortness Of Breath aerosol albuterol sulfate 90 mcg/actuation 2 inh inhalation Q4H PRN Shortness 05/25/20 02/01/24 aerosol inhaler (Ventolin HFA) Of Breath Or Wheezing cetirizine 10 mg tablet 10 mg PO HS 05/25/20 02/01/24 potassium chloride 10 mEq 20 meq PO HS 09/12/22 02/01/24 capsule,extended release metoprolol succinate 25 mg 25 mg PO HS 02/01/24 02/01/24 tablet,extended release 24 hr omeprazole 40 mg capsule,delayed 40 mg PO HS 02/01/24 02/01/24 release pioglitazone 30 mg tablet 30 mg PO HS 02/01/24 02/01/24 spironolactone 50 mg tablet 50 mg PO HS 10/10/24 10/10/24 Allergies Allergy/AdvReac Type Severity Reaction Status Date / Time Penicillins Allergy Unknown RASH Verified 02/25/24 15:26 allopurinol AdvReac Rash Verified 02/25/24 15:26 Review of Systems Review of Systems: All systems reviewed & are unremarkable except as noted in HPI and below Constitutional: Constitutional: Reports no additional constitutional complaints Eyes: Eyes: Reports no additional eye complaints ENT: Reports system reviewed and no additional complaints, except as documented Cardiovascular: Cardiovascular: Reports no additional cardiovascular complaints Respiratory: Respiratory: Reports no additional respiratory complaints Gastrointestinal: Gastrointestinal: Reports no additional gastrointestinal complaints Genitourinary: Genitourinary: Reports no additional female genitourinary complaints Musculoskeletal: Musculoskeletal: Reports no additional musculoskeletal complaints Integumentary/Breasts: Skin/Breast: Reports system reviewed and no additional complaints, except as docu Neurologic: Reports system reviewed and no additional complaints, except as documented Psychiatric: Psychiatric: Reports no additional psychiatric complaints Endocrine: Endocrine: Reports no additional endocrine complaints Hematologic/Lymphatic: Hematologic/Lymphatic: Reports no additional hematologic/lymphatic complaints Allergic/Immunologic: Allergic/Immunologic: Reports no additional a llergic/immunologic complaints PMFSH Past Medical History Medical History Abnormal digestive system diagnostic imaging Acute diarrhea Asthma Colon cancer screening Dog bite Elevated LFTs GERD (gastroesophageal reflux disease) Hepatic steatosis History of use of contraceptive intrauterine device (IUD) Hypertension Renal stones Surgical History Surgical History Delivery by section History of ankle surgery History of bilateral tubal ligation History of colonoscopy Hx of cholecystectomy Hx of tonsillectomy Social History Social History Smoking status: Never smoker Alcohol intake: never Substance use: current Substance use type: marijuana Last use: 02/01/2024 Do You Feel Safe in your Home?: Yes Lack of Transportation: No Lack of Food: Never True Current Housing: I Have Housing Concerned About Future Housing: No Difficulty Paying Gas/Electric Bills: No Difficulty Paying for Meds: No Currently Unemployed: No Education: Associate Degree Difficulty w/ Childcare or Family Care: No Living arrangements: with family Gender identity (if verbalized by the patient): Female Sexual Orientation (if Verbalized by the Patient): Straight or Heterosexual Spiritual care concerns: No Exam Const: General: healthy appearing Nutritional Appearance: well nourished and obese Orientation/consciousness: patient oriented x3 Limitations: no limitations HENMT: Head: normal to inspection Ears: external ears normal Face/Nose/Sinus: Normal external nose present Eyes: Conjunctivae: conjunctivae normal Pupils: Equal, round and reactive pupils present EOM: EOMs intact bilaterally Neck: Neck: normal visual inspection Chest: Chest palpation & inspection: normal inspection of the chest Resp: Effort & Inspection: normal respiratory effort and not labored Auscultation: clear to auscultation bilaterally and no crackles Cardio: Rate: regular rate, not bradycardic and not tachycardic Rhythm: regular rhythm and regular rhythm Heart sounds: no murmurs GI: Inspection: non-distended GI Palp: Yes Soft to palpation, No Tenderness to palpation present (GI) and No Guarding due to palpation present (GI) Auscultation: normal bowel sounds Other: prior cholecystectomy : General: Yes bladder normal to palpation Back/Spine/Pelvis: Back: no CVA tenderness Skin: General skin exam: normal color Rashes: no rashes Wounds: no wounds Neuro: General: patient oriented x3 Cranial nerves: Yes Nystagmus not p resent Speech: normal speech Gait exam (Neuro): Normal gait present Extrem: General: normal to inspection Psych: Mental Status: mental status grossly normal Affect: normal affect Attitude: cooperative Course Vital Signs Vital signs: Vital Signs Temperature 36.4 C 02/25/24 15:15 Pulse Rate 83 02/25/24 15:15 Respiratory Rate 20 02/25/24 15:15 Blood Pressure 199/97 H 02/25/24 15:15 Pulse Oximetry 99 02/25/24 15:15 Oxygen Delivery Room Air 02/25/24 15:15 Temperature 36.6 C 02/25/24 16:30 Pulse Rate 74 02/25/24 17:29 Respiratory Rate 20 02/25/24 17:16 Blood Pressure 175/72 H 02/25/24 17:16 Pulse Oximetry 97 02/25/24 17:16 Oxygen Delivery Room Air 02/25/24 15:45 MDM - Chest Pain MDM Narrative Medical decision making narrative: patient is a 51-year-old female with chest pain shortness of breath today. We will go ahead and do a cardiac workup at this time. We will try nitroglycerin. Her pressure is elevated as well. 1 nitro was given but she had some side effects to include diaphoresis and nausea and dizzy at a pressure dropped. The chest pain did decrease however in value. Monitoring the patient in time, the chest pain has mostly resolved after that nitro but in general on its own and further there has been no back pain since earlier to the emergency room. Lab Data Attestation: I reviewed the patient's lab results. 02/25/24 15:59 02/25/24 15:59 Labs: Lab Results 02/25/24 02/25/24 02/25/24 Range/Units 15:59 15:59 15:59 WBC 5.7 (4.8-10.8) K/mm3 RBC 4.90 (4.20-5.40) M/mm3 Hgb 13.9 (12.0-15.0) g/dL Hct 42.9 (35.0-49.0) % MCV 87.6 (78.0-102.0) fL MCH 28.4 (27.0-31.0) pg MCHC 32.4 (32-36) g/dL RDW 14.1 (11.6-14.4) % Plt Count 312 (150-420) K/mm3 MPV 9.6 (9.2-11.8) fl Immature Gran % (Auto) 0.3 H (0.0-0.0) % Neut % (Auto) 52.8 (50.0-70.0) % Lymph % (Auto) 32.5 (18.0-42.0) % [place] % (Auto) 7.9 (2.0-11.0) % Eos % (Auto) 5.8 (1.0-6.0) % Baso % (Auto) 0.7 (0.0-1.0) % Lymph # (Auto) 1.86 (1.10-4.50) K/mm3 [place] # (Auto) 0.45 (0.10-0.90) K/mm3 Eos # (Auto) 0.33 (0.02-0.50) K/mm3 Baso # (Auto) 0.04 (0.00-0.10) K/mm3 Abs Immat Gran (auto) 0.02 H (0.00-0.00) K/mm3 Absolute Neuts (auto) 3.02 (1.70-7.20) K/mm3 Absolute Nucleated RBC 0.00 (0.00-0.00) K/mm3 Nucleated RBC % 0.0 (0-0.0) % PT Cancelled 10.0 INR Cancelled 0.9 APTT Cancelled D-Dimer Sodium (136-145) mmol/L Potassium (3.5-5.1) mmol/L Chloride (98-108) mmol/L Carbon Dioxide (21-32) mmol/L Anion Gap (4-12) mmol/L BUN (7-18) mg/dL Creatinine (0.55-1.02) mg/dL Estim Creat Clear Calc ml/min Estimated GFR (59 - ) Glucose (70-99) mg/dL Calculated Osmolality (285-295) mOsm/kg Calcium (8.5-10.1) mg/dL Magnesium (1.8-2.4) mg/dL Total Bilirubin (0.00-1.00) mg/dL AST (15-37) U/L ALT (14-59) U/L Alkaline Phosphatase (46-116) U/L Troponin I (0.00-60.4) ng/L NT-Pro-B Natriuret Pep (0-125) pg/mL Total Protein (6.4-8.2) g/dL Albumin (3.4-5.0) g/dL Lipase (16-77) U/L Urine Color (Yellow) Urine Appearance (Clear) Urine pH (5.0-8.0) Ur Specific [place] (1.010-1.020) Urine Protein (Negative) Urine Glucose (UA) (Negative) Urine Ketones (Negative) Ur Blood (Man) (Negative) Urine Nitrate (Negative) Urine Bilirubin (Negative) Urine Urobilinogen (0.2-1.0) mg/dL Leukocyte Esterase Rfl (Negative) SON/UL 02/25/24 02/25/24 Range/Units 15:59 15:59 WBC (4.8-10.8) K/mm3 RBC (4.20-5.40) M/mm3 Hgb (12.0-15.0) g/dL Hct (35.0-49.0) % MCV (78.0-102.0) fL MCH (27.0-31.0) pg MCHC (32-36) g/dL RDW (11.6-14.4) % Plt Count (150-420) K/mm3 MPV (9.2-11.8) fl Immature Gran % (Auto) (0.0-0.0) % Neut % (Auto) (50.0-70.0) % Lymph % (Auto) (18.0-42.0) % [place] % (Auto) (2.0-11.0) % Eos % (Auto) (1.0-6.0) % Baso % (Auto) (0.0-1.0) % Lymph # (Auto) (1.10-4.50) K/mm3 [place] # (Auto) (0.10-0.90) K/mm3 Eos # (Auto) (0.02-0.50) K/mm3 Baso # (Auto) (0.00-0.10) K/mm3 Abs Immat Gran (auto) (0.00-0.00) K/mm3 Absolute Neuts (auto) (1.70-7.20) K/mm3 Absolute Nucleated RBC (0.00-0.00) K/mm3 Nucleated RBC % (0-0.0) % PT INR APTT 26.0 D-Dimer Cancelled 0.46 Sodium 142 (136-145) mmol/L Potassium 3.7 (3.5-5.1) mmol/L Chloride 103 (98-108) mmol/L Carbon Dioxide 27 (21-32) mmol/L Anion Gap 12 (4-12) mmol/L BUN 18 (7-18) mg/dL Creatinine 1.21 H (0.55-1.02) mg/dL Estim Creat Clear Calc 58 ml/min Estimated GFR 46 L (59 - ) Glucose 107 H (70-99) mg/dL Calculated Osmolality 295 (285-295) mOsm/kg Calcium 9.5 (8.5-10.1) mg/dL Magnesium 1.9 (1.8-2.4) mg/dL Total Bilirubin 0.4 (0.00-1.00) mg/dL AST 15 (15-37) U/L ALT 25 (14-59) U/L Alkaline Phosphatase 75 (46-116) U/L Troponin I < 4.0 (0.00-60.4) ng/L NT-Pro-B Natriuret Pep 78 (0-125) pg/mL Total Protein 7.6 (6.4-8.2) g/dL Albumin 3.5 (3.4-5.0) g/dL Lipase 34 (16-77) U/L Urine Color Light yellow (Yellow) Urine Appearance Clear (Clear) Urine pH 5.5 (5.0-8.0) Ur Specific [place] >= 1.030 H (1.010-1.020) Urine Protein Negative (Negative) Urine Glucose (UA) Negative (Negative) Urine Ketones Negative (Negative) Ur Blood (Man) Negative (Negative) Urine Nitrate Negative (Negative) Urine Bilirubin Negative (Negative) Urine Urobilinogen 0.2 (0.2-1.0) mg/dL Leukocyte Esterase Rfl Negative (Negative) SON/UL Imaging Data Attestation: I personally reviewed and interpreted this imaging study as follows: Radiologist's impression: Chest x-ray is negative for acute process ECG Data EKG #1: Attestation: I personally reviewed and interpreted this ECG as follows: ECG completion date: 02/25/24 ECG completion time: 16:04 EKG Interpretation: normal rate, sinus rhythm, no ectopy, non-specific ST changes, normal QRS, normal QT and left axis Discharge Plan Discharge Clinical Impression: Atypical chest pain Patient Disposition: Home, Self-Care Condition: Improved Instructions: Chest Pain (ED) Additional Instructions: Please follow-up with the primary doctor in the next week. Make sure to take your blood pressure medicine today. Talk to the primary doctor about doing further heart testing as an outpatient. Come back to the ER with any further chest pain. Prescriptions: No Action potassium chloride 10 mEq capsule, extended release 20 meq PO HS beclomethasone dipropionate 40 mcg/actuation Hfa Aerosol Breath Activated 1 inh INHALATION Q12H PRN (Reason: Shortness Of Breath) omeprazole 40 mg capsule,delayed release(DR/EC) 40 mg PO HS metoprolol succinate 25 mg tablet extended release 24 hr 25 mg PO HS pioglitazone 30 mg tablet 30 mg PO HS spironolactone 50 mg tablet 50 mg PO HS hydrocodone-acetaminophen 5-325 mg Tablet 1 tablet PO Q6H PRN (Reason: Pain Rated 4-6) Qty: 10 0RF metronidazole 500 mg tablet 500 mg PO Q8H Qty: 18 0RF levofloxacin 750 mg tablet 750 mg PO DAILY Qty: 6 0RF albuterol sulfate [Ventolin HFA] 90 mcg/actuation HFA aerosol inhaler 2 inh inhalation Q4H PRN (Reason: Shortness Of Breath Or Wheezing) cetirizine 10 mg tablet 10 mg PO HS Follow-up/Referrals: Pramod Phillips MD [Primary Care Provider] - Time of Disposition: 18:38
[2024-02-25] MEDS: NITROGLYCERIN SL 0.4 MG TABLET SUBLINGUAL (15:45)
[2024-02-25 16:05] LABS: Basophils Absolute Auto 0.04 K/mm3 (0.00-0.10); Basophils Percent Auto 0.7 % (0.0-1.0); Eosinophils Absolute Auto 0.33 K/mm3 (0.02-0.50); Eosinophils Percent Auto 5.8 % (1.0-6.0); Hematocrit 42.9 % (35.0-49.0); Hemoglobin 13.9 g/dL (12.0-15.0); Immature Granulocyte Absolute 0.02 K/mm3 (0.00-0.00); Immature Granulocyte Percent A 0.3 % (0.0-0.0); Lymphocytes Absolute Auto 1.86 K/mm3 (1.10-4.50); Lymphocytes Percent Auto 32.5 % (18.0-42.0); Mean Corpuscular HGB Conc 32.4 g/dL (32-36); Mean Corpuscular Hemoglobin 28.4 pg (27.0-31.0); Mean Corpuscular Volume 87.6 fL (78.0-102.0); Mean Platelet Volume 9.6 fl (9.2-11.8); Monocytes Absolute Auto 0.45 K/mm3 (0.10-0.90); Monocytes Percent Auto 7.9 % (2.0-11.0); Neutrophils Absolute Auto 3.02 K/mm3 (1.70-7.20); Neutrophils Percent Auto 52.8 % (50.0-70.0); Platelet Count Result 312 K/mm3 (150-420); Red Cell Distribution Width 14.1 % (11.6-14.4); White Blood Count 5.7 K/mm3 (4.8-10.8)
[2024-02-25 16:26] LABS: Alanine Aminotransferase 25 U/L (14-59); Albumin Level 3.5 g/dL (3.4-5.0); Alkaline Phosphatase 75 U/L (46-116); Anion Gap 12 mmol/L (4-12); Aspartate Amino Transferase 15 U/L (15-37); Bilirubin,Total 0.4 mg/dL (0.00-1.00); Blood Urea Nitrogen 18 mg/dL (7-18); Calcium 9.5 mg/dL (8.5-10.1); Carbon Dioxide 27 mmol/L (21-32); Chloride 103 mmol/L (98-108); Estimated CRCL calculation 58 ml/min; Estimated Glomerular Filt Rate 46; Glucose 107 mg/dL (70-99); Lipase 34 U/L (16-77); Magnesium 1.9 mg/dL (1.8-2.4); NT Pro B Type Natriuretic Pept 78 pg/mL (0-125); Osmolality Calculated 295 mOsm/kg (285-295); Potassium 3.7 mmol/L (3.5-5.1); Sodium 142 mmol/L (136-145); Total Protein 7.6 g/dL (6.4-8.2)
[2024-02-25 16:28] LABS: Troponin I < 4.0 ng/L (0.00-60.4)
[2024-02-25 16:55] LABS: INR 0.9
[2024-02-25 16:58] LABS: Add Urine Microscopic? NO; Appearance Urine Clear (Clear); Bilirubin Urine Negative (Negative); Blood Urine Negative (Negative); Color Urine Light Yellow (Yellow); Glucose Urine UA Negative (Negative); Ketones Urine Negative (Negative); Leukocyte Esterase Ur Negative LEU/UL (Negative); Nitrate Urine Negative (Negative); Protein Urine Negative (Negative); Specific Grav Ur >= 1.030 (1.010-1.020); Urobilinogen Urine 0.2 mg/dL (0.2-1.0); pH Urine 5.5 (5.0-8.0)
[2024-02-25 17:07] LABS: D Dimer 0.46 mg/L (0.19-0.50)
[2024-02-25 18:32] LABS: Troponin I < 4.0 ng/L (0.00-60.4)
== END 2024-02-25 18:43 | disposition home or self-care (01) ==
PROVIDERS: Emergency Provider Emergency Medicine; PCP Family Medicine
DX: R07.89 Other chest pain (principal); I10 Essential (primary) hypertension
CPT/HCPCS: 36415; 71045; 80053; 81003; 83690; 83735; 83880; 84484; 85025; 85380; 85610; 85730; 93005; 99284; A9270

== ENCOUNTER 2024-04-12 08:55 | Outpatient (CLI) | payer BC, SELFPAY ==
--- NOTE | ~2024-04-12 | NM_ITS ---
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 The patient was infused intravenously with Lexiscan (regadenoson). Then, 34.7 mCi Tc99m tetrofosmin (Myoview) was administered intravenously, and stress images were obtained. Data was mitchel nstructed into short axis and horizontal and vertical long axis SPECT images. Gated SPECT images were also obtained. COMPARISON: None. FINDINGS: There is no definite reversible or fixed perfusion abnormality to suggest ischemia or infar ction. There is no segmental wall motion abnormality. Left ventricular ejection fraction measures 7 6%. IMPRESSION: 1. No definite ischemia or infarct. 2. Normal left ventricular ejection fraction measuring 76%. Reviewed, dictated and finalized at location B. ET TECHNICIAN
--- NOTE | 2024-04-12 09:11 | EST_ITS ---
Patient Info Name: Madonna Mi Age: 58 years : 1965 Gender: Female Ht: 65 in Wt: 245 lbs BSA: 2.31 m2 HR: 70 bpm BP: 150 / 67 mmHg Exam Date: 04/12/2024 10:26 AM Exam Location: [facility] Patient Status: Outpatient Admit Date: 04/12/2024 Staff Ordering Physician: Artemio Kerns DO Attending Provider: Artemio Kerns DO Exercise Technologist: Dionne Pedraza RDCS Exercise Physician: Artemio Kerns DO Exam Type: CA stress erasmo w NM Study Info A regadenoson stress test was performed. History/Risk Factors Hypertension: Yes Obesity: Yes Diabetes Mellitus: No Tobacco Use: Former Family History: Coronary Artery Disease Frailty Scale (CSHA): 2: Well Summary 1. 1. Negative lexiscan stress test for ischemic ST changes by ECG criteria. 2. 2. Baseline hypertension. 3. 3. Nuclear scan to follow and will be reported separately. Please correlate with it. 4. 4. Patient informed of the above results. Protocol: Lexiscan Stress ECG Details Stage: REST Duration (min): 2 min : 18 sec HR (bpm): 69 SBP (mmHg): 150 DBP (mmHg): 67 Stage: REST Duration (min): 10 min : 39 sec HR (bpm): 66 SBP (mmHg): 150 DBP (mmHg): 67 Stage: STAGE 1 Duration (min): 1 min : 0 sec HR (bpm): 98 SBP (mmHg): 146 DBP (mmHg): 52 Stage: RECOVERY Duration (min): 1 min : 0 sec HR (bpm): 90 SBP (mmHg): 146 DBP (mmHg): 52 Stage: RECOVERY Duration (min): 2 min : 0 sec HR (bpm): 86 SBP (mmHg): 146 DBP (mmHg): 52 Stage: RECOVERY Duration (min): 3 min : 0 sec HR (bpm): 85 SBP (mmHg): 146 DBP (mmHg): 60 Stage: RECOVERY Duration (min): 3 min : 4 sec HR (bpm): 88 SBP (mmHg): 146 DBP (mmHg): 60 Rest HR: 66 bpm Peak HR: 101 bpm Rest Sys BP: 150 mmHg Peak Sys BP: 146 mmHg Max Pred HR: 161 bpm % Max Pred HR: 63 % Target HR: 137 bpm Max RPP: 14,746 bpm*mmHg Termination Reason: Completed protocol Cardiac Symptoms: Shortness of breath, Dizziness Total Time: 1 min : 0 sec Rest Senior BP: 67 mmHg Peak Senior BP: 60 mmHg Total Dose: 0.4 mg Resting ECG Sinus rhythm, cannot r/o septal infarct, age indeterminate. Stress ECG No ST changes. Arrhythmias None. Report Signatures
== END 2024-04-12 08:56 | disposition home or self-care (01) ==
PROVIDERS: PCP Family Medicine; Visit Provider Internal Medicine Cardiovascular Disease
DX: R07.9 Chest pain, unspecified (principal)
CPT/HCPCS: 78452; 93017; A9502; J2785

== ENCOUNTER 2024-07-31 17:10 | Outpatient (CLI) | payer OTHER, SELFPAY ==
--- NOTE | ~2024-07-31 | XR_ITS ---
Left ankle Technique: AP, oblique, and lateral views were obtained. Clinical History: Pain Findings: No acute fracture or dislocation is seen. Osseous alignment is anatomic. Ankle mortise and other visualized joint spaces are preserved. Soft tissues are otherwise unremarkable. Impression: Unremarkable left ankle. Reviewed, dictated and finalized at location . Impression: Unremarkable left ankle.
--- OUTSIDE RECORDS SUMMARY | 2024-07-31 17:17 | XMS_ITS | Data Portability ---
Author Organization [facility] [place] Address [address] [place] [address] Care Team Providers Care Product Marketer Name Role Phone GALILEA ROGERS Primary Care Provider Assessment Encounter Date Assessment Date Assessment LastModified by Organization Details LastModified Time 02/16/2023 02/16/2023 Annual gynecological exam performed. Patient will come back in a year unless there are new symptoms. [email or web address] Not available 02/16/2023 13:50:11 Plan of Treatment Reminders Order Date Submit Date Provider Last Modified By Organization Details Last Modified Time Details Appointments None recorded. Lab hormone panel, serum or plasma 2022 [facility] (Lab), [address], [place], [address], 12:42:58 HbA1c (hemoglobin A1c), blood 2022 023 [facility] (Lab), [address] [place], [address], 12:42:58 CMP, serum or plasma 2022 023 [facility] (Lab), [address] [place], [address], 3 12:42:57 CBC w/ auto diff 2022 023 [facility] (Lab), [address], [place], [address], 12:42:57 testosteron e free/testos terone total, ratio, serum 2022 [facility] (Lab), [address], [place], [address], 12:42:59 Referral primary care provider referral 20[address] [place] [address] Ariane Parmar [employer], [address] [facility] , [address], [place], [address], 14:10:26 Procedures None recorded. Surgeries None recorded. Imaging MAMMO, screening, bilateral [address] [facility], [address], [address], [place], [address], 14:10:26 Medication Orders triamcinolo ne acetonide 0.1 % topical ointment 2022 [facility], [facility] [address] [place], [id number], 10:47:59 Patient TargetsNo targets recorded. Patient InstructionsNo instructions recorded. Reason for Referral Primary Care Provider Referr al for Type 2 diabetes mellitus DM2/PCP Care/HTN/Possible Endocrinology referral needed Referring Physician: Traci Chavez, RN REHABILITATION, Encounter Date: 02/16/2023 Results Created Date Observation Date Name Description Value Unit Range Abnormal Flag Note LastModifiedBy Organization Detail LastModifiedTime 02/17/2002/16/2023 CBC W/DIF F WBC 7.4 10'3/ uL 3.6-10 .2 Not Available [facility] (Lab) [address], [place], [address], 02/19/2023 12:42:57 02/17/2002/16/2023 CBC W/DIF F RBC 4.88 10'6/ uL (based on docume nted legal sex) 4.10-5 .30 Not Available [facility] (Lab) [address], [place], [address], 02/19/2023 12:42:57 02/17/2002/16/2023 CBC W/DIF F HGB 13.8 g/dL (based on docume nted legal sex) 11.9-1 5.8 Not Available [facility] (Lab) [address] , [place], [address], 02/19/2023 12:42:57 02/17/2002/16/2023 CBC W/DIF F HCT 45.3 % (based on docume nted legal sex) 37.4-4 8.3 Not Available [facility] (Lab) [address], [place], [address], 02/19/2023 12:42:57 02/17/2002/16/2023 CBC W/DIF F MCV 92.8 fL 82.0-9 9.0 Not Available [facility] (Lab) [address], [place], [address], 02/19/2023 12:42:57 02/17/2002/16/2023 CBC W/DIF F MCH 28.3 pg 27.0-3 3.0 Not Available [facility] (Lab) [address] [facility] [address], [place], [address], 02/19/2023 12:42:57 02/17/2002/16/2023 CBC W/DIF F MCHC 30.5 g/dL 32.0-3 6.0 low Not Available [facility] (Lab) [address], [place], [address], 02/19/2023 12:42:57 02/17/2002/16/2023 CBC W/DIF F RDW 14.6 % 11.0-1 5.0 Not Available [facility] (Lab) [address], [place], [address], 02/19/2023 12:42:57 02/17/2002/16/2023 CBC W/DIF F plt 367 10'3/ uL 150-45 0 Not Available [facility] (Lab) [address], [place], [address], 02/19/2023 12:42:57 02/17/2002/16/2023 CBC W/DIF F MPV 10.9 fL 9.8-12 .7 Not Available [facility] (Lab) [address], [place], [address], 02/19/2023 12:42:57 02/17/2002/16/2023 CBC W/DIF F NRBC's 0.0 % 0 Not Available [facility] (Lab) [address], [place], [address], 02/19/2023 12:42:57 02/17/2002/16/2023 CBC W/DIF F absolute NRBCs 0.0 10'3/ uL 0 Not Available [facility] (Lab) [address], [place], [address], 02/19/2023 12:42:57 02/17/2002/16/2023 CBC W/DIF F neutrophils 64.6 % 37.0-7 2.0 Not Available [facility] (Lab) [address], [place], [address], 02/19/2023 12:42:57 02/17/2002/16/2023 CBC W/DIF F lymphocytes 20.7 % 16.0-4 8.0 Not Available [facility] (Lab) [address], [place], [address], 02/19/2023 12:42:57 02/17/2002/16/2023 CBC W/DIF F monocytes 7.0 % 4.0-14 .0 Not Available [facility] (Lab) [address], [place], [address], 02/19/2023 12:42:57 02/17/2002/16/2023 CBC W/DIF F eosinophils 6.5 % 0.0-9. 0 Not Available [facility] (Lab) [address] [facility], [place], [address], 02/19/2023 12:42:57 02/17/2002/16/2023 CBC W/DIF F basophils 0.8 % 0.0-2. 0 Not Available [facility] (Lab) [address], [place], [address], 02/19/2023 12:42:57 02/17/2002/16/2023 CBC W/DIF F immature granulocytes 0.4 % no define d refere nce range Not Available [facility] (Lab) [address], [place], [address], 02/19/2023 12:42:57 02/17/2002/16/2023 CBC W/DIF F absolute neutrophils 4.8 10'3/ uL 1.1-6. 0 Not Available [facility] (Lab) [address], [place], [address], 02/19/2023 12:42:57 02/17/2002/16/2023 CBC W/DIF F absolute lymphocytes 1.5 10'3/ uL 0.7-3. 4 Not Available [facility] (Lab) [address], [place], [address], 02/19/2023 12:42:57 02/17/2002/16/2023 CBC W/DIF F absolute monocytes 0.5 10'3/ uL 0.3-1. 0 Not Available [facility] (Lab) [address], [place], [address], 02/19/2023 12:42:57 02/17/2002/16/2023 CBC W/DIF F absolute eosinophils 0.5 10'3/ uL 0.0-0. 6 Not Available [facility] (Lab) [address], [place], [address], 02/19/2023 12:42:57 02/17/2002/16/2023 CBC W/DIF F absolute basophils 0.1 10'3/ uL 0.0-0. 1 Not Available [facility] (Lab) [address], [place], [address], 02/19/2023 12:42:57 02/17/2002/16/2023 CBC W/DIF F absolute immature granulocytes 0.0 10'3/ uL 0.00-0 .10 02/17 4:12 AM: P indic ates parti al resul ts on a panel have been relea sed. Addit ional resul ts will follo w. 02/17 4:12 AM: This resul t has been final verif ied. No addit ional or alves ed resul ts are expec robyn. Not Available [facility] (Lab) [address], [place], [address], 02/19/2023 12:42:57 02/17/2002/16/2023 CMP(C OMPRE HENSI VE METAB OLIC PANEL ) sodium 139 mmol/ L 133-14 6 Not Available [facility] (Lab) [address], [place], [address], 02/19/2023 12:42:57 02/17/2002/16/2023 CMP(C OMPRE HENSI VE METAB OLIC PANEL ) potassium 4.8 mmol/ L 3.5-5. 1 Not Available [facility] (Lab) [address], [place], [address], 02/19/2023 12:42:57 02/17/2002/16/2023 CMP(C OMPRE HENSI VE METAB OLIC PANEL ) chloride 104 mmol/ L 98-107 Not Available [facility] (Lab) [address], [place], [address], 02/19/2023 12:42:57 02/17/2002/16/2023 CMP(C OMPRE HENSI VE METAB OLIC PANEL ) carbon dioxide 27 mmol/ L 21-31 Not Available [facility] (Lab) [address], [place], [address], 02/19/2023 12:42:57 02/17/2002/16/2023 CMP(C OMPRE HENSI VE METAB OLIC PANEL ) anion gap 8 mmol/ L 4-13 Not Available [facility] (Lab) [address], [place], [address], 02/19/2023 12:42:57 02/17/2002/16/2023 CMP(C OMPRE HENSI VE METAB OLIC PANEL ) blood urea nitrogen 18 mg/dL 7-[address] [facility] (Lab) [address], [place], [address], 02/19/2023 12:42:57 02/17/2002/16/2023 CMP(C OMPRE HENSI VE METAB OLIC PANEL ) creatinine 1.13 mg/dL 0.60-1 .30 Not Available [facility] (Lab) [address], [place], [address], 02/19/2023 12:42:57 02/17/2002/16/2023 CMP(C OMPRE HENSI VE METAB OLIC PANEL ) egfrcr (CKD-epi 2020) 56 mL/mi n/1.7 3_m2 >=60 low Not Available [facility] (Lab) [address], [place], [address], 02/19/2023 12:42:57 02/17/2002/16/2023 CMP(C OMPRE HENSI VE METAB OLIC PANEL ) calcium 9.9 mg/dL 8.3-10 .5 Not Available [facility] (Lab) [address], [place], [address], 02/19/2023 12:42:57 02/17/2002/16/2023 CMP(C OMPRE HENSI VE METAB OLIC PANEL ) glucose 106 mg/dL 70-100 high Not Available [facility] (Lab) [address], [place], [address], 02/19/2023 12:42:57 02/17/2002/16/2023 CMP(C OMPRE HENSI VE METAB OLIC PANEL ) protein, total 7.6 g/dL 6.4-8. 3 Not Available [facility] (Lab) [address], [place], [address], 02/19/2023 12:42:57 02/17/2002/16/2023 CMP(C OMPRE HENSI VE METAB OLIC PANEL ) albumin 4.3 g/dL 3.5-5. 0 Not Available [facility] (Lab) [address], [place], [address], 02/19/2023 12:42:57 02/17/2002/16/2023 CMP(C OMPRE HENSI VE METAB OLIC PANEL ) ALT 33 units /L 9-43 Not Available [facility] (Lab) [address], [place], [address], 02/19/2023 12:42:57 02/17/20 23 02/16/2023 CMP(C OMPRE HENSI VE METAB OLIC PANEL ) alkaline phosphatase 69 units /L 34-104 Not Available [facility] (Lab) [address], [place], [address], 02/19/2023 12:42:57 02/17/20 23 02/16/2023 CMP(C OMPRE HENSI VE METAB OLIC PANEL ) AST 22 units /L 13-39 Not Available [facility] (Lab) [address], [place], [address], 02/19/2023 12:42:57 02/17/20 23 02/16/2023 CMP(C OMPRE HENSI VE METAB OLIC PANEL ) bilirubin, total 0.3 mg/dL 0.2-1. 2 Not Available [facility] (Lab) [address], [place], [address], 02/19/2023 12:42:57 02/17/2002/16/2023 HEMOG LOBIN A1C hemoglobin A1C 6.4 % 0-5.6 high The Ameri can Diabe sarwat Assoc iatio n recom mends that a prima ry goal of thera py shoul d be a HBA1C of < 7% and that physi cians shoul d reeva luate the treat ment regim en in patie nts with HBA1C value s consi stent ly > 8%. <5.7% Lisandra l 5.7 - 6.4% Incre ased risk for diabe sarwat >=6.5 % Diagn ostic of diabe sarwat <7.0% Goal of thera py >8.0% Actio n sugge sted Not Available [facility] (Lab) [address], [place], [address], 02/19/2023 12:42:58 02/17/2002/16/2023 FSH, LH, ESTRA DIOL estradiol 15.4 pg/mL This assay was perfo rmed using [employer] ratio n reage nts and test kits. Value s obtai jazmyne with other assay metho ds or kits canno t be used inter alves eably . Femal e Estra diol Range s: Folli cular phase 12.4- 233 pg/mL Ovula tion phase 41.0- 398 pg/mL Lutea l phase 22.3- 341 pg/mL Postm enopa usal< 5-138 pg/mL Healt hy Pregn ant Women 1st Trime ster1 54-32 43 pg/mL 2nd Trime ster1 561-2 1280 pg/mL 3rd Trime ster8 525-> 28683 pg/mL Not Available [facility] (Lab) [address], [place], [address], 02/19/2023 12:42:58 02/17/20 23 02/16/2023 FSH, LH, ESTRA DIOL FSH 43.4 mIU/m L This assay was perfo rmed using [employer] reage nts and test kits. Value s obtai jazmyne with other assay metho ds or kits canno t be used inter [facility] . Femal es Folli cular : 3.5-1 2.5 mIU/m L Ovula tion: 4.7-2 1.5 mIU/m L Lutea l: 1.7-7 .7 mIU/m L Postm enopa use: 25.8- 134.8 mIU/m L Not Available [facility] (Lab) [address], [place], [address], 02/19/2023 12:42:58 02/17/20 23 02/16/2023 FSH, LH, ESTRA DIOL LH 32.4 mIU/m L This assay was perfo rmed using [employer] ratio n reage nts and test kits. Value s obtai jazmyne with other assay metho ds or kits canno t be used inter [facility] . Femal es Mid-F ollic ular: 2.4-1 2.6 mIU/m L Mid-C ycle: 14.0- 95.6 mIU/m L Mid-L uteal : 1.0-1 1.4 mIU/m L Postm enopa use: 7.7-5 8.5 mIU/m L Not Available [facility] (Lab) [address], [place], [address], 02/19/2023 12:42:58 02/17/20 23 02/16/2023 TESTO STERO NE, FREE( DIALY SIS) AND TOTAL (LC/M S/MS) testosterone , total 64 NG/dL 2-45 high For addit ional janet elena e refer to http: //sharlene pineda.que stdia gnost ics.c om/fa q/ Total Testo stero neLCM SMSFA Q165 (This link is being provi ded for steven edwards/ educa aydee l purpo ses only. ) This test was devel oped and its zainab tical perfo rmanc e kike cteri stics have been deter mined by [facility] [place], [place]. It has not been clear ed or appro johnson by the U.S. Food and Drug Admin istra tion. This assay has been valid ated pursu ant to the CLIA regul ation s and is used for clini jesus purpo ses. Not Available [facility] (Lab) [address], [place], [address], 02/19/2023 12:42:59 02/17/2002/16/2023 TESTO STERO NE, FREE( DIALY SIS) AND TOTAL (LC/M S/MS) testosterone , free 9.0 pg/mL 0.1-6. 4 high This test was devel oped and its zainab tical perfo rmanc e kike cteri stics have been deter mined by [facility] [place]. It has not been clear ed or appro johnson by the U.S. Food and Drug Admin istra tion. This assay has been valid ated pursu ant to the CLIA regul ation s and is used for clini jesus purpo ses. Perfo rming Organ izati on Infor matio n: Site ID: AMD Name: Lori Viewex amalia s [facility] Addre ss: [id number] [facility] [employer] [place], [place] Direc tor: Osbaldo Curiel MD PhD Not Available [facility] (Lab) [address], [place], [address], 02/19/2023 12:42:59 02/17/2002/16/2023 IMAGE GUIDE D PAP AND HPV REGAR DLESS image guided Pap, HPV regardless of Pap result SEE RESULT S BELOW CASE REPOR T: Cytol ogy Gynec ologi jesus Repor t Case: [id number] Autho wendi sylvester Provi miguel: Enzo Vail Colle cted: 02/16 1602 [employer] Order ing Locat ion: [place] [facility] Recei johnson: 02/17 0322 First Scree n: Andra [place], CT Speci men: Scree severiano Pap - Image d, Cervi x STATE MENT OF ADEQU ACY: Satis facto ry for evalu ation Trans forma tion zone compo nent prese nt FINAL DIAGN OSIS: Negat pavithra for Intra epith elial Lesio n or Bgcheo shweta (NIL) . Elect radhakalpana joseph tamara d by Andra [place], CT on 02/21 at 1:02 PM ----- ----- ----- ----- ----- ----- ----- ----- ----- ----- ----- ----- ----- ----- ----- ----- ----- ---- HPV RESUL TS: HPV mRNA E6/E7 : No HPV mRNA Detec robyn NOTE: This high risk HPV mRNA assay detec ts fourt een high- risk HPV types (16, 18, 31, 33, 35, 39, 45, 51, 52, 56, 58, 59, 66, 68) witho ut diffe renti ation . COMME NT: This speci men was revie wed by a Cytot echno logis t and/o r Patho logis t (as indic ated in this repor t) after evalu ation using the Thinp rep Imagi ng Syste m. CLINI JESUS INFOR MATIO N: Menst rual Statu s: LMP (if appli cable ): Clini jesus Histo ry/Pr eviou s Pap: Type of Neopl aleah (if appli cable ): Signi fican t Clini jesus Findi ngs: Other Histo ry: Hormo varun (if appli cable ): PAP EDUCA AYDEE L NOTE: The Pap Test is a scree severiano test with an inher ent false negat pavithra rate. Liqui d-bas ed sampl ing may decre ase, but will not elimi anita, false negat pavithra resul ts. A negat pavithra resul t does not precl ude the prese nce and/o r devel opmen t of disea se, since the prese nce of abnor mal cells in the sampl e depen ds on the locat ion of the lesio n and sampl ing techn ique. Arina nued regul ar scree severiano is the best metho d of cance r preve ntion . If repor robyn cytol ogic findi ng do not corre late with physi jesus and/o r histo rical findi ngs, furth er inves tigat ion is recom rashida d, as clini theresa otero nted. Not Available [facility] (Lab) [address], [place], [address], 02/21/2023 14:06:50 Result Notes None recorded. Problems Name Problem SNOMED Code Status Onset Date Resolution Date Notes Provider Name and Address Organization Details Recorded Time Uses IUD (intraute rine device) contracep tion 054849419 Active 2013 Surveillan ce of intrauteri ne contracept pavithra device;Rec orded Elsewhere: No Locatio n: [facility] rce: EHR Chroni c: N Practice ID: 0001 Billa ble Time: 04:00:00 PM Not Available [facility] 0 14:49:23 Screening for malignant neoplasm of rectum Active 2014 Screening for malignant neoplasms of the rectum;Rec orded Elsewhere: No Locatio n: [facility] Denise rce: EHR Chroni c: N Practice ID: 0001 Billa ble Time: 08:45:00 AM Not Available [facility] 0 14:49:23 Removal of intrauter ine device Active 2017 Encounter for removal of intrauteri ne contracept pavithra device;Rec orded Elsewhere: No Locatio n: [facility] Denise rce: EHR Chroni c: N Practice ID: 0001 Billa ble Time: 10:15:00 AM Not Available [facility] 0 14:49:23 Hypertens pavithra disorder 13690041 Active 2017 HTN;Record ed Elsewhere: No Locatio n: [facility] Denise rce: EHR Chroni c: N Practice ID: 0001 Billa ble Time: 09:00:00 AM Not Available [facility] 0 14:49:23 Polyp of corpus uteri 25271958 Active 2010 Polyp Endometria l Uterus;Pra ctice ID: 0001 Not Available [facility] 0 14:49:23 Menstruat ion finding Active 2010 Menorrhagi a Excessive Menstruati on;Practic e ID: 0001 Not Available [facility] 0 14:49:23 Dysfuncti onal uterine bleeding Active 2010 DUB;Practi ce ID: 0001 Not Available [facility] 0 14:49:23 Pre-surge ry evaluatio n Active 2010 Pre-operat pavithra examinatio n, unspecifie d;Practice ID: 0001 Not Available [facility] 0 14:49:23 Insertion of intrauter ine contracep tive device Active 2010 INSERTION OF IUD;Practi ce ID: 0001 Not Available [facility] 0 14:49:23 Adult health examinati on Active 2014 Routine general medical examinatio n at a health care facility;Tang lenz ID: 0001 Not Available [facility] 0 14:49:23 Specializ ed medical examinati on Active 2014 Routine gynecologi jesus examinatio n;Practice ID: 0001 Not Available [facility] 0 14:49:[address] Concept Active 2017 Encntr for estimation manager exam (general) (routine) w/o abn findings;R ecorded Elsewhere: No Locatio n: [facility] rce: EHR Chroni c: N Practice ID: 0001 Billa ble Time: 09:00:00 AM Not Available [facility] 0 14:49:[address] Concept Active 2015 Encntr for general adult medical exam w/o abnormal findings;R ecorded Elsewhere: No Locatio n: [facility] Denise rce: EHR Chroni c: N Practice ID: 0001 Billa ble Time: 09:30:00 AM Not Available [facility] 0 14:49:24 Menopause present [id number] Active 2015 Symptoms such as flushing, sleeplessn ess, headache, lack of concentrat ion, associated with natural (age-relat ed) menopause; Recorded Elsewhere: No Locatio n: [facility] Denise rce: EHR Chroni c: N Practice ID: 0001 Billa ble Time: 09:30:00 AM Not Available [facility] 0 14:49:24 Finding of body mass index 535120728 Active 2017 Body mass index (BMI) 40.0-44.9, adult;Colt rded Elsewhere: No Locatio n: [facility] Denise rce: EHR Chroni c: N Practice ID: 0001 Billa ble Time: 09:00:00 AM Not Available [facility] 0 14:49:24 Screening for malignant neoplasm of cervix Active 2014 Pap Smear;Prac gem ID: 0001 Not Available [facility] 0 14:49:[address] Concept Active 2017 Encntr for estimation manager exam (general) (routine) w abnormal findings;P ractice ID: 0001 Not Available [facility] 0 14:49:25 Problem Notes None recorded. Procedures Surgical History Date Name Laterality Status Provider Name and Address Organization Details Recorded Time 12/08/19 17 Date of Last Pap Smear completed Louise [facility] 02/16/2023 10:04:49 05/03/18 94 Caesarean Section completed Louise [facility] 02/16/2023 10:08:34 06/01/18 90 [facility] 10:08:28 cholecystectomy completed Louise [facility] 02/16/2023 10:08:49 tonsilectomy/adenoi ds completed Louise [facility] 02/16/2023 10:09:01 Orthopedic Surgery completed Vik pavon [facility] 02/16/2023 10:09:13 Imaging Results None recorded. Procedure Notes None recorded. Medical Equipment None Reported. Allergies Allergen ID Allergen Name Allergen Category Reaction Reaction Severity Criticality Documentation Date Start Date Code Code System Note Provider Name and Address Organization Details Recorded Time 88470 Product containin g penicilli n (product) medicatio n Not available Not available Not available 04/10/2020 23899 8001 SNOMED Comme nt: Locat ion: [facility]te [facility]; Not Available [facility] 0 14:20:51 Medications Name Sig Start Date Stop Date Status Note LastModified by Organization Details LastModified Time flowflex kit test 02/16 completed Not Available Not Available Not Available metformin 500 mg tablet active Not Available Not Available Not Available potassium chloride ER 10 mEq capsule,e xtended release active Not Available Not Available Not Available hydrocodo ne 5 mg-acetam inophen 325 mg tablet 02/16 completed Not Available Not Available Not Available sucralfat e 1 gram tablet 02/16 completed Not Available Not Available Not Available lisinopri l 20 mg tablet active Not Available Not Available Not Available prednison e 5 mg tablet active Not Available Not Available Not Available clindamyc in HCl 150 mg capsule 02/16 completed Not Available Not Available Not Available allopurin ol 100 mg tablet active Not Available Not Available Not Available omeprazol e 40 mg capsule,d elayed release active Not Available Not Available Not Available tramadol 50 mg tablet 02/16 completed Not Available Not Available Not Available famotidin e 20 mg tablet active Not Available Not Available Not Available amitripty line 25 mg tablet 02/16 completed Not Available Not Available Not Available cephalexi n 500 mg capsule 02/16 completed Not Available Not Available Not Available triamcino lone acetonide 0.1 % topical ointment APPLY A THIN LAYER TO THE AFFECTED AREA(S) BY TOPICAL ROUTE 2 TIMES PER DAY PRN active Not Available Not Available No t Available prednison e 50 mg tablet active Not Available Not Available Not Available Qvar 40 mcg/actua tion Metered Aerosol oral inhaler inhale 2 puff by inhalati on route 2 times every day 02/16 completed Prescrib ed Elsewher e: Yes Loca tion: Oneil castanon [facility] M odify By: amkuhl E ncounter DateTime : 10/17/19 14 04:00:00 PM Not Available Not Available Not Available indometha barbra 50 mg capsule 02/16 completed Not Available Not Available Not Available hydrochlo rothiazid e 25 mg tablet 02/16 completed Not Available Not Available Not Available albuterol sulfate HFA 90 mcg/actua tion aerosol inhaler inhale 2 puff by inhalati on route every 4 - 6 hours as needed active Not Available Not Available No t Available ondansetr on 4 mg disintegr ating tablet 02/16 completed Not Available Not Available Not Available fluticaso ne propionat e 50 mcg/actua tion nasal spray,jesus pension 02/16 completed Not Available Not Available Not Available Ambien 5 mg tablet take 2 tablet by oral route every day at bedtime 02/16 completed Prescrib ed Elsewher e: Yes Loca tion: [facility] odify By: kay weissunter DateTime : 11/26/19 16 09:30:00 AM Not Available Not Available Not Available dicyclomi ne 10 mg capsule 02/16 completed Not Available Not Available Not Available [facility] 4 mg oral granules in packet 02/16 completed Prescrib ed Elsewher e: Yes Loca tion: [facility] odify By: elena weissunter DateTime : 10/17/19 14 04:00:00 PM Not Available Not Available Not Available Zyrtec 10 mg capsule active Prescrib ed Elsewher e: Yes Loca tion: [facility] odify By: elena weissuntteresita DateTime : 10/17/19 14 04:00:00 PM Not Available Not Available Not Available Zolpimist 5 mg/spray (0.1 mL) oral spray spray 2 spray by translin gual route every day into the mouth, over the tongue at bedtime 02/16 completed Prescrib ed Elsewher e: Yes Loca tion: [facility] odify By: elena Castanon ncounter DateTime : 10/17/19 14 04:00:00 PM Not Available Not Available Not Available Flowflex COVID-19 Antigen Home Test kit 02/16 completed Not Available Not Available Not Available Vitals Date Recorded Body height Body mass index (BMI) Body weight Systolic blood pressure Diastolic blood pressure Provider Name and Address Organization Details Last Updated DateTime 02/16/2023 167.64 cm 37.8 kg/m2 969208.6 1 g 138 mm[Hg] 82 mm[Hg] Louise Viera [facility] 10:15:53 Social History Question Answer Notes LastModified by Organizat ion Details LastModified Time Tobacco Smoking Status Never Smoker Louise Viera null, [facility] 02/16/2023 10:08:12 What Is Your Level Of Alcohol Consumption? None Information not available 02/16/2023 In The 14 Days Before Symptom Onset, Have You Had Close Contact With A Laboratory-confirm ed COVID-19 While That Case Was Ill? No Information n ot available 02/16/2023 In The 14 Days Before Symptom Onset, Have You Had Close Contact With A Person Who Is Under Investigation For COVID-19 While That Person Was Ill? No Information not available 02/16/2023 Have You Been To An Area Known To Be High Risk For COVID-19? No Information not available 02/16/2023 Sex: Unknown Functional Status None recorded. Mental Status None recorded. Family History Relationship Description Onset Age of this Age Resolved Age Notes LastModified by Organization Details LastModified Time Maternal Grandmother Anemia Not available 2022 10:06:22 Maternal Grandmother Hypertensive disorder Not available 2022 10:07:04 Maternal Grandmother Tuberculosis Not available 1 10:07:38 Mother Malignant tumor of colon Not available 2022 10:06:31 Mother Hypercholest erolemia Not available 2022 10:06:48 Mother Hypertensive disorder Not available 2022 10:07:04 Mother Disorder of thyroid gland Not available 2022 10:07:27 Paternal Grandfather Heart disease Not available 2022 10:06:41 Maternal Grandfather Malignant tumor of lung Not available 2022 10:07:16 Medical History Condition Response Diabetes Y Anemia Y High Cholesterol Y Hypertension Y Gynecological History Statement/Question Response Abnormal Pap N Date of Last Mammogram Date of Last Colonoscopy Sexually Active? Y Menses Monthly N STIs/STDs N HPV Vaccine N Date of Last Pap Smear 12/07/2016 Sexual Problems? N Current Control Method Menopause LMP Unknown Obstetrics History GPAL:G 2 P 0 0 0 2 Type Value Living 2 Total 2 Past Encounters Encounter ID Performer Location Encounter Start Date Encounter Closed Date Diagnosis/Indication Diagnosis SNOMED-CT Code Diagnosis ICD10 Code Diagnosis Note [id number] Traci Chavez , [facility] [address] [address] 02/16/2023 09:42:53 02/16/2023 14:10:25 Gynecologic examination 76733420 Z01.419 Take Calcium with Vitamin D 12-1500mg daily. Do monthly self breast exams. It is advised to get annual flu shot in the fall and she could obtain at [facility] or [facility] care clinic. If you haven't received the Tdap vaccine in the last 10 years you should obtain one as well. Have mammogram yearly, bone density every 2-3 years and colonoscop y every 5-10 years depending on findings and history. Engage in daily exercise of low impact aerobic exercise 45-60 minutes 4-5 times weekly. Avoid tobacco and illicit drugs as well as using moderation with alcohol intake less than 1-2 8 oz beverages daily. This lifestyle behavior pattern will lead to less health conditions and longer life span. If BMI greater than 25 weight watchers or dietary consult advised. Questions have been answered. Patient appears to understand instructio ns, but if you have any further questions call or respond to this email Pap/hpv sentSTD Screen declinedGe netic Screen discussedC olon Screen -2022 cologuard neg (Has a family Hx of colon cancer--PC P manages colon screens).D exa Screen naRoutine Labs UTD PCP Laboratory test result abnormal [id number] L68.0 Facial hair increase-u nder chin mostlyElev ated T-levels in 08/2022Has IM7Swphowr opausal since early 50s.Hx of IUD use. Menopausal symptom 50698 002 N95.1 Menopausal since early 50's but recent lab work showed a less than 22 value for LH; wanted to repeat these to ensure we are not missing another issue as she is having a lot of endocrine sx's and has type 2 DM. Type 2 sparkle barakat mellitus 28224202 E11.9 Possible referral to new PCP & endocrinol varinder for assistance in managing these issues likely a combinatio n of DM2/Postme nopausal/O besity. Screening mammography 24 937916 Z12.31 Vaginitis 26834104 N76.0 PRN use ointment for keratinize d skin that will cause itching. 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 Post-MenopausalRe ported bypatient.Menopau michael Symptoms:no menopausal symptoms; normal vaginal lubrication Vaginal Bleeding:history of menopause having occurred; no history of post menopausal bleeding Urinary Symptoms:no hematuria; no incontinence; no nocturia; no urinary frequency Vulva:no genital lesion; no vulvar atrophy Vagina:normal vaginal discharge; no vaginal atrophy Breast:no breast lump; no nipple discharge; no breast pain Sexual Complaints:no sexual complaints Psychological Symptoms:no depression; no anxiety Preventive Measures:encourag e regular mammograms starting age 40; encourage self breast examination; encourage regular exercise; encourage no tobacco use; needs to schedule mammogram; history of recent colonoscopy Traci Chavez, [facility] [address], [place], [address], [facility] 02/16/2023 13:55:13 OBGyn Episode Ob Episode Information Episode Created Date Number of Fetuses Patient Bloodtype Patient rh Status Prepregnancy Weight lbs Domestic Partner Domestic Partner Phone Father Name Maintenance Helper Status 02/17/20 23 1 CLOSED Fetus Data First Name Last Name Admitted to NICU Weight (g) Sex Living Outcome Pediatric Complications Fetus ID Race Codes Race Delivery Type Full Term [id number] Repeat Paul Calculation Initial Paul Date Initial Exam Date Initial Exam Provider Initial Ultrasound Date Last Menstrual Period Date Ultra Sound Weeks Gestation 0 Eighteen To Twenty Week Paul Update Ultra Sound Date Fundal Height At Umbil Quickening Date Ultra Sound Latest Weeks Gestation Final Paul Confirmed By Final Paul Confirmed Date Final Paul Date Ultra Sound Latest Days Gestation 0 0 Menstrual History Last Menstrual Date Menses Monthly On Bcp Conception Prior Menses Frequency Hcg Plus Date Menarche Onset Age Delivery Information Delivery Date Delivery Type Labor Anesthesia Weeks Gestation Incision Type Labor Labor Length Hrs Delivered By Post Complications Tubal Sterilization Discharge Date Comments 4 Discharge Information Feeding Method Contraceptive Method Maternal HG B and HCT Levels Ob Episode Information Episode Created Date Number of Fetuses Patient Bloodtype Patient rh Status Prepregnancy Weight lbs Domestic Partner Domestic Partner Phone Father Name Maintenance Helper Status 02/17/20 23 1 CLOSED Fetus Data First Name Last Name Admitted to NICU Weight (g) Sex Living Outcome Pediatric Complications Fetus ID Race Codes Race Delivery Type Full Term [id number] Primary Paul Calculation Initial Paul Date Initial Exam Date Initial Exam Provider Initial Ultrasound Date Last Menstrual Period Date Ultra Sound Weeks Gestation 0 Eighteen To Twenty Week Paul Update Ultra Sound Date Fundal Height At Umbil Quickening Date Ultra Sound Latest Weeks Gestation Final Paul Confirmed By Final Paul Confirmed Date Final Paul Date Ultra Sound Latest Days Gestation 0 0 Menstrual History Last Menstrual Date Menses Monthly On Bcp Conception Prior Menses Frequency Hcg Plus Date Menarche Onset Age Delivery Information Delivery Date Delivery Type Labor Anesthesia Weeks Gestation Incision Type Labor Labor Length Hrs Delivered By Post Complications Tubal Sterilization Discharge Date Comments 0 Discharge Information Feeding Method Contraceptive Method Maternal HG B and HCT Levels
--- OUTSIDE RECORDS SUMMARY | 2024-07-31 17:17 | XMS_ITS | Clinical Summary ---
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 Sexual Orientation Not on file Plan of Treatment Upcoming Encounters Date Type Department Care Team (Late st Contact Info) Description 09/03/2024 11:00 AM CDT Office Visit [facility] [address] [place] [address] [facility] [address] [facility] [address] [id number] Health Maintenance Due Date Last Done Comments Hepatitis C Virus (HCV) Screening 1965 Mammogram 1965 Hepatitis B Immunization (1 of 3 - 19+ 3-dose series) 11/28/1983 Pap Smear 1985 Cervical Cancer Screening (CCS) 1994 HPV/Cotest 1994 Colonoscopy 2009 Colorectal Cancer Screening 2009 Cologuard 2014 Immunochemical Fecal Occult Blood 2014 Pneumococcal Immunization (50+ years) (1 of 1 - PCV) 2014 Zoster Immunization (1 of 2) 2014 Influenza Immunization (#1) 2023 SARS-COV-2 Immunization ( season) 2023 02/19/2021, 07/08/2020, 07/03/2020, Additional history exists Respiratory Syncytial Virus (RSV) Immunization (Adult) (1 - 1-dose 75+ series) 11/28/2039 TdaP Immunization Completed 03/29/2022, 05/05/2010 Meningococcal Immunization (ACWY) Aged Out No longer eligible based on patient's age to complete this topic Rotavirus Immunization Aged Out No lo nger eligible based on patient's age to complete this topic Insurance [employer] Care Teams Director Of Clinical Education Relationship Specialty Start Date End Date Pramod Phillips MD [address] [place] [address] PCP - General Pediatrics 06/27/24
--- OUTSIDE RECORDS SUMMARY | 2024-07-31 17:17 | XMS_ITS | Clinical Summary ---
Author Organization [facility] Address [address] [place] [id number] Care Team Providers Care Professional Application Designer Name Role Phone Unavailable Primary Care Provider Unavailabl e Social History Tobacco Use Types Packs/Day Years Used Date Smoking Tobacco: Never Assessed Comments Unknown Sex and Gender Information Value Date Recorded Sex Assigned at Not on file Legal Sex Female 1:26 AM CDT Gender Identity Not on file Sexual Orientation Not on file Plan of Treatment Health Maintenance Due Date Last Done Comments Cervical Cancer Screening Pa p Smear (Age 30 to 64) Every 3 Years 1964 Colorectal Cancer Screening Colonoscopy (10 Years) 1964 Annual Physical 11/28/1967 Hepatitis C 1982 DTaP, Tdap and Td Vaccines ( 1 - Tdap) 11/28/1983 Cervical Cancer Screening Pa p with HPV Testing (Age 30 to 64) Every 5 Years 1994 Cervical Cancer Screening with HPV 1994 Mammogram Screening 2004 Zoster Vaccines (1 of 2) 2014 COVID-19 Vaccine (2023-2 5 season) 2023 Meningococcal B Vaccine Aged Out No l onger eligible based on patient's age to complete this topic Meningococcal Vaccine Aged Out No rudy maria eugenia eligible based on patient's age to complete this topic Pneumococcal Vaccine: Pediat rics (0 to 5 Years) and At-Risk Patients (6 to 64 Years) Aged Out No longer eligible b ased on patient's age to complete this topic RSV Immunizations Under 20 Months Aged Out No longer eligible based on patient's age to complete this topic
== END 2024-07-31 17:11 | disposition home or self-care (01) ==
LOC: CHSIMG 17:15
PROVIDERS: PCP Family Medicine; Visit Provider Family Medicine
DX: M25.572 Pain in left ankle and joints of left foot (principal)
CPT/HCPCS: 73610

== ENCOUNTER 2024-08-19 07:11 | Outpatient (CLI) | payer OTHER, SELFPAY ==
--- NOTE | ~2024-08-19 | US_ITS ---
Right clavicular area ULTRASOUND (Doppler ultrasound interrogation techniques used as needed for this exam.) Ordering provider: Pramod Phillips MD History: . LOCALIZED SWELLING MASS AND LUMP, TRUNK . Comparison: None. FINDINGS/impression: Slightly Hypoechoic area measuring 8.3 x 7.9 x 2.7 cm is seen. No color flow is seen. This may repres ent a lipoma. Further evaluation and follow-up advised. Reviewed, dictated and finalized at location A.
--- NOTE | ~2024-08-19 | MM_ITS ---
EXAMINATION: MM screening mukesh BI w kamilah HISTORY: Screening mammogram TECHNIQUE: Craniocaudal and mediolateral oblique 3-D tomosynthesis images were obtained and synthetic 2-D images were generated. CAD analysis was submitted and interpreted. COMPARISON: 02/21/2023 BREAST PARENCHYMAL COMPOSITION:Not Dense. There are scattered areas of fibroglandular density. FINDINGS: No suspicious mass, calcification, or architectural distortion are identified in either micki ast to suggest malignancy. There has been no suspicious interval change. IMPRESSION: No mammographic evidence of malignancy. Recommend routine screening mammography in one year. BI-RADS Category 1: Negative Reviewed, dictated and finalized at location .
--- OUTSIDE RECORDS SUMMARY | 2024-08-19 07:18 | XMS_ITS | Data Portability ---
Author Organization [facility] [place] Address [address] [place] [address] Care Team Providers Care Vice President For Instruction Name Role Phone GALILEA ROGERS Primary Care Provider [phone] Assessment Encounter Date Assessment Date Assessment LastModified by Organization Details LastModified Time 02/16/2023 02/16/2023 Annual gynecological exam performed. Patient will come back in a year unless there are new symptoms. [email or web address] Not available 02/16/2023 13:50:11 Plan of Treatment Reminders Order Date Submit Date Provider Last Modified By Organization Details Last Modified Time Details Appointments None recorded. Lab hormone panel, serum or plasma 2022 [facility] (Lab), [address], [place], [address], 12:42:58 HbA1c (hemoglobin A1c), blood [address] [facility] (Lab), [address] [place], [address], 12:42:58 CMP, serum or plasma [address] [facility] (Lab), [address] [place], [address], 3 12:42:57 CBC w/ auto diff [address] [facility] (Lab), [address], [place], [address], 12:42:57 testosteron e free/testos terone total, ratio, serum 2022 [facility] (Lab), [address], [place], [address], 12:42:59 Referral primary care provider referral [address] [place] [id number] Ariane Parmar CAR RENTAL SERVICE ATTENDANT, [address] [facility] , [address], [place], [address], 14:10:26 Procedures None recorded. Surgeries None recorded. Imaging MAMMO, screening, bilateral [address] [facility], [address], [address], [place], [address], 14:10:26 Medication Orders triamcinolo ne acetonide 0.1 % topical ointment 2022 [facility], [facility] [address] [place], [place], [id number], 10:47:59 Patient TargetsNo targets recorded. Patient InstructionsNo instructions recorded. Reason for Referral Primary Care Provider Referr al for Type 2 diabetes mellitus DM2/PCP Care/HTN/Possible Endocrinology referral needed Referring Physician: Traci Chavez, CAREER RESOURCE SPECIALIST, Encounter Date: 02/16/2023 Results Created Date Observation Date Name Description Value Unit Range Abnormal Flag Note LastModifiedBy Organization Detail LastModifiedTime 02/17/2002/16/2023 CBC W/DIF F WBC 7.4 10'3/ uL 3.6-10 .2 Not Available [facility] (Lab) [address], [place], [address], 02/19/2023 12:42:57 02/17/2002/16/2023 CBC W/DIF F RBC 4.88 10'6/ uL (based on docume nted legal sex) 4.10-5 .30 Not Available [facility] (Lab) [address], [place], [address], 02/19/2023 12:42:57 02/17/2002/16/2023 CBC W/DIF F HGB 13.8 g/dL (based on docume nted legal sex) 11.9-1 5.8 Not Available [facility] (Lab) [address] , [place], [address], 02/19/2023 12:42:57 02/17/2002/16/2023 CBC W/DIF F HCT 45.3 % (based on docume nted legal sex) 37.4-4 8.3 Not Available [facility] (Lab) [address], [place], [address], 02/19/2023 12:42:57 02/17/2002/16/2023 CBC W/DIF F MCV 92.8 fL 82.0-9 9.0 Not Available [facility] (Lab) [address], [place], [address], 02/19/2023 12:42:57 02/17/2002/16/2023 CBC W/DIF F MCH 28.3 pg 27.0-3 3.0 Not Available [facility] (Lab) [address] [facility], [place], [address], 02/19/2023 12:42:57 02/17/2002/16/2023 CBC W/DIF F MCHC 30.5 g/dL 32.0-3 6.0 low Not Available [facility] (Lab) [address] [facility], [place], [address], 02/19/2023 12:42:57 02/17/2002/16/2023 CBC W/DIF F RDW 14.6 % 11.0-1 5.0 Not Available [facility] (Lab) [address], [place], [address], 02/19/2023 12:42:57 02/17/2002/16/2023 CBC W/DIF F plt 367 10'3/ uL 150-45 0 Not Available [facility] (Lab) [address], [place], [address], 02/19/2023 12:42:57 02/17/2002/16/2023 CBC W/DIF F MPV 10.9 fL 9.8-12 .7 Not Available [facility] (Lab) [address], [place], [address], 02/19/2023 12:42:57 02/17/2002/16/2023 CBC W/DIF F NRBC's 0.0 % 0 Not Available [facility] (Lab) [address], [place], [address], 02/19/2023 12:42:57 02/17/2002/16/2023 CBC W/DIF F absolute NRBCs 0.0 10'3/ uL 0 Not Available [facility] (Lab) [address], [place], [address], 02/19/2023 12:42:57 02/17/2002/16/2023 CBC W/DIF F neutrophils 64.6 % 37.0-7 2.0 Not Available [facility] (Lab) [address], [place], [address], 02/19/2023 12:42:57 02/17/2002/16/2023 CBC W/DIF F lymphocytes 20.7 % 16.0-4 8.0 Not Available [facility] (Lab) [address], [place], [address], 02/19/2023 12:42:57 02/17/2002/16/2023 CBC W/DIF F monocytes 7.0 % 4.0-14 .0 Not Available [facility] (Lab) [address], [place], [address], 02/19/2023 12:42:57 02/17/2002/16/2023 CBC W/DIF F eosinophils 6.5 % 0.0-9. 0 Not Available [facility] (Lab) [address] [facility], [place], [address], 02/19/2023 12:42:57 02/17/2002/16/2023 CBC W/DIF F basophils 0.8 % 0.0-2. 0 Not Available [facility] ([facility]) [address] [facility], [place], [address], 02/19/2023 12:42:57 02/17/2002/16/2023 CBC W/DIF F immature granulocytes 0.4 % no define d refere nce range Not Available [facility] (Lab) [address] [facility], [place], [address], 02/19/2023 12:42:57 02/17/2002/16/2023 CBC W/DIF F absolute neutrophils 4.8 10'3/ uL 1.1-6. 0 Not Available [facility] ([facility]) [address] [facility], [place], [address], 02/19/2023 12:42:57 02/17/2002/16/2023 CBC W/DIF F absolute lymphocytes 1.5 10'3/ uL 0.7-3. 4 Not Available [facility] ([facility]) [address] [facility], [place], [address], 02/19/2023 12:42:57 02/17/2002/16/2023 CBC W/DIF F absolute monocytes 0.5 10'3/ uL 0.3-1. 0 Not Available [facility] ([facility]) [address] [facility], [place], [address], 02/19/2023 12:42:57 02/17/2002/16/2023 CBC W/DIF F absolute eosinophils 0.5 10'3/ uL 0.0-0. 6 Not Available [facility] ([facility]) [address] [facility], [place], [address], 02/19/2023 12:42:57 02/17/2002/16/2023 CBC W/DIF F absolute basophils 0.1 10'3/ uL 0.0-0. 1 Not Available [facility] (Lab) [address] [facility], [place], [address], 02/19/2023 12:42:57 02/17/2002/16/2023 CBC W/DIF F absolute immature granulocytes 0.0 10'3/ uL 0.00-0 .10 02/17 4:12 AM: P indic ates parti al resul ts on a panel have been relea sed. Addit ional resul ts will follo w. 02/17 4:12 AM: This resul t has been final verif ied. No addit ional or alves ed resul ts are expec robyn. Not Available [facility] (Lab) [address] [facility], [place], [address], 02/19/2023 12:42:57 02/17/2002/16/2023 CMP(C OMPRE HENSI VE METAB OLIC PANEL ) sodium 139 mmol/ L 133-14 6 Not Available [facility] (Lab) [address] [facility], [place], [address], 02/19/2023 12:42:57 02/17/2002/16/2023 CMP(C OMPRE HENSI VE METAB OLIC PANEL ) potassium 4.8 mmol/ L 3.5-5. 1 Not Available [facility] (Lab) [address] [facility], [place], [address], 02/19/2023 12:42:57 02/17/2002/16/2023 CMP(C OMPRE HENSI VE METAB OLIC PANEL ) chloride 104 mmol/ L 98-107 Not Available [facility] (Lab) [address] [facility], [place], [address], 02/19/2023 12:42:57 02/17/2002/16/2023 CMP(C OMPRE HENSI VE METAB OLIC PANEL ) carbon dioxide 27 mmol/ L 21-31 Not Available [facility] (Lab) [address], [place], [address], 02/19/2023 12:42:57 02/17/2002/16/2023 CMP(C OMPRE HENSI VE METAB OLIC PANEL ) anion gap 8 mmol/ L 4-13 Not Available [facility] (Lab) [address] [facility], [place], [address], 02/19/2023 12:42:57 02/17/2002/16/2023 CMP(C OMPRE HENSI VE METAB OLIC PANEL ) blood urea nitrogen 18 mg/dL 7-25 Not Available [facility] (Lab) [address] [facility], [place], [address], 02/19/2023 12:42:57 02/17/2002/16/2023 CMP(C OMPRE HENSI VE METAB OLIC PANEL ) creatinine 1.13 mg/dL 0.60-1 .30 Not Available [facility] ([facility]) [address] [facility], [place], [address], 02/19/2023 12:42:57 02/17/2002/16/2023 CMP(C OMPRE HENSI VE METAB OLIC PANEL ) egfrcr (CKD-epi 2020) 56 mL/mi n/1.7 3_m2 >=60 low Not Available [facility] (Lab) [address] [facility], [place], [address], 02/19/2023 12:42:57 02/17/2002/16/2023 CMP(C OMPRE HENSI VE METAB OLIC PANEL ) calcium 9.9 mg/dL 8.3-10 .5 Not Available [facility] ([facility]) [address] [facility], [place], [address], 02/19/2023 12:42:57 02/17/2002/16/2023 CMP(C OMPRE HENSI VE METAB OLIC PANEL ) glucose 106 mg/dL 70-100 high Not Available [facility] (Lab) [address] [facility], [place], [address], 02/19/2023 12:42:57 02/17/2002/16/2023 CMP(C OMPRE HENSI VE METAB OLIC PANEL ) protein, total 7.6 g/dL 6.4-8. 3 Not Available [facility] (Lab) [address] [facility], [place], [address], 02/19/2023 12:42:57 02/17/2002/16/2023 CMP(C OMPRE HENSI VE METAB OLIC PANEL ) albumin 4.3 g/dL 3.5-5. 0 Not Available [facility] (Lab) [address] [facility], [place], [address], 02/19/2023 12:42:57 02/17/2002/16/2023 CMP(C OMPRE HENSI VE METAB OLIC PANEL ) ALT 33 units /L 9-43 Not Available [facility] (Lab) [address] [facility], [place], [address], 02/19/2023 12:42:57 02/17/20 23 02/16/2023 CMP(C OMPRE HENSI VE METAB OLIC PANEL ) alkaline phosphatase 69 units /L 34-104 Not Available [facility] (Lab) [address] [facility], [place], [address], 02/19/2023 12:42:57 02/17/20 23 02/16/2023 CMP(C OMPRE HENSI VE METAB OLIC PANEL ) AST 22 units /L 13-39 Not Available [facility] (Lab) [address] [facility], [place], [address], 02/19/2023 12:42:57 02/17/20 23 02/16/2023 CMP(C OMPRE HENSI VE METAB OLIC PANEL ) bilirubin, total 0.3 mg/dL 0.2-1. 2 Not Available [facility] (Lab) [address] [facility], [place], [address], 02/19/2023 12:42:57 02/17/2002/16/2023 HEMOG LOBIN A1C hemoglobin [...] >8.0% Actio n sugge sted Not Available [facility] (Lab) [address], [place], [address], 02/19/2023 12:42:58 02/17/2002/16/2023 FSH, LH, ESTRA DIOL [...] 561-2 1280 pg/mL 3rd Trime ster8 525-> 77861 pg/mL Not Available [facility] (Lab) [address], [place], [address], 02/19/2023 12:42:58 02/17/20 23 02/16/2023 FSH, LH, ESTRA DIOL FSH 43.4 mIU/m L This assay was perfo rmed using [employer] n reage nts and test kits. Value s obtai jazmyne with other assay metho ds or kits canno t be used inter [facility] . Femal es Folli cular : 3.5-1 2.5 mIU/m L Ovula tion: 4.7-2 1.5 mIU/m L Lutea l: 1.7-7 .7 mIU/m L Postm enopa use: 25.8- 134.8 mIU/m L Not Available [facility] (Lab) [address] [facility], [place], [address], 02/19/2023 12:42:58 02/17/20 23 02/16/2023 FSH, LH, ESTRA DIOL LH 32.4 mIU/m L This assay was perfo rmed using [employer] ratio n reage nts and test kits. Value s obtai jazmyne with other assay metho ds or kits canno t be used inter [facility] . Femal es Mid-F ollic ular: 2.4-1 2.6 mIU/m L Mid-C ycle: 14.0- 95.6 mIU/m L Mid-L uteal : 1.0-1 1.4 mIU/m L Postm enopa use: 7.7-5 8.5 mIU/m L Not Available [facility] (Lab) [address] [facility], [place], [address], 02/19/2023 12:42:58 02/17/20 23 02/16/2023 TESTO STERO [...] cteri stics have been deter mined by [employer] [place]. It has not been clear ed or appro johnson by the U.S. Food and Drug Admin istra tion. This assay has been valid ated pursu ant to the CLIA regul ation s and is used for clini jesus purpo ses. Not Available [facility] (Lab) [address] [facility], [place], [address], 02/19/2023 12:42:59 02/17/2002/16/2023 TESTO STERO NE, FREE( DIALY SIS) AND TOTAL (LC/M S/MS) testosterone , free 9.0 pg/mL 0.1-6. 4 high This test was devel oped and its zainab tical perfo rmanc e kike cteri stics have been deter mined by [employer] [place]. It has not been clear ed or appro johnson by the U.S. Food and Drug Admin istra tion. This assay has been valid ated pursu ant to the CLIA regul ation s and is used for clini jesus purpo ses. Perfo rming Organ izati on Infor matio n: Site ID: AMD Name: Lori [employer] am[employer] Addre ss: [id number] [facility] [employer] [place], [place] Direc tor: Osbaldo Curiel MD PhD Not Available [facility] (Lab) [address], [place], [address], 02/19/2023 12:42:59 02/17/2002/16/2023 IMAGE GUIDE D PAP AND HPV REGAR DLESS image guided Pap, HPV regardless of Pap result SEE RESULT S BELOW CASE REPOR T: Cytol ogy Gynec ologi jesus Repor t Case: [id number] Autho wendi sylvester Provi miguel: Enzo Vail Colle cted: 02/16 1602 CAR RENTAL SERVICE ATTENDANT Order ing Locat ion: [place] Patho logy [...] as clini theresa otero nted. Not Available [facility] (Lab) [address] [facility], [place], [address], 02/21/2023 14:06:50 Result Notes None recorded. Problems Name Problem SNOMED Code Status Onset Date Resolution Date Notes Provider Name and Address Organization Details Recorded Time Uses IUD (intraute rine device) contracep tion 398039981 Active 2013 Surveillan ce of intrauteri ne contracept pavithra device;Rec orded Elsewhere: No Locatio n: [facility] rce: EHR Chroni c: N Practice ID: 0001 Billa ble Time: 04:00:00 PM Not Available [facility] 0 14:49:23 Screening for malignant neoplasm of rectum Active 2014 Screening for malignant neoplasms of the rectum;Rec orded Elsewhere: No Locatio n: [facility] rce: EHR Chroni c: N Practice ID: 0001 Billa ble Time: 08:45:00 AM Not Available [facility] 0 14:49:23 Removal of intrauter ine device Active 2017 Encounter for removal of intrauteri ne contracept pavithra device;Rec orded Elsewhere: No Locatio n: [facility]ise rce: EHR Chroni c: N Practice ID: 0001 Billa ble Time: 10:15:00 AM Not Available [facility] 0 14:49:23 Hypertens pavithra disorder 85132086 Active 2017 HTN;Record ed Elsewhere: No Locatio n: [facility]ise rce: EHR Chroni c: N Practice ID: 0001 Billa ble Time: 09:00:00 AM Not Available [facility] 0 14:49:23 Polyp of corpus uteri 37557545 Active 2010 Polyp Endometria l Uterus;Pra ctice ID: 0001 Not Available [facility] 0 14:49:23 Menstruat ion finding Active 2010 Menorrhagi a Excessive Menstruati on;Practic e ID: 0001 Not Available [facility] 0 14:49:23 Dysfuncti onal uterine bleeding Active 2010 DUB;Practi ce ID: 0001 Not Available [facility] 0 14:49:23 Pre-surge ry evaluatio n Active 2010 Pre-operat pavithra examinatio n, unspecifie d;Practice ID: 0001 Not Available [facility] 0 14:49:23 Insertion of intrauter ine contracep tive device Active 2010 INSERTION OF IUD;Practi ce ID: 0001 Not Available [facility] 0 14:49:23 Adult health examinati on Active 2014 Routine general medical examinatio n at a health care facility;Tang lenz ID: 0001 Not Available [facility] 0 14:49:23 Specializ ed medical examinati on Active 2014 Routine gynecologi jesus examinatio n;Practice ID: 0001 Not Available [facility] 0 14:49:[address] Concept Active 2017 Encntr for services account manager exam (general) (routine) w/o abn findings;R ecorded Elsewhere: No Locatio n: [facility] rce: EHR Chroni c: N Practice ID: 0001 Billa ble Time: 09:00:00 AM Not Available [facility] 14:49:[address] Concept Active 2015 Encntr for general adult medical exam w/o abnormal findings;R ecorded Elsewhere: No Locatio n: [facility]ise rce: EHR Chroni c: N Practice ID: 0001 Billa ble Time: 09:30:00 AM Not Available [facility] 0 14:49:24 Menopause present 125820076 Active 2015 Symptoms such as flushing, sleeplessn ess, headache, lack of concentrat ion, associated with natural (age-relat ed) menopause; Recorded Elsewhere: No Locatio n: [facility]ise rce: EHR Chroni c: N Practice ID: 0001 Billa ble Time: 09:30:00 AM Not Available [facility] 0 14:49:24 Finding of body mass index 643431996 Active 2017 Body mass index (BMI) 40.0-44.9, adult;Colt rded Elsewhere: No Locatio n: [facility] rce: EHR Chroni c: N Practice ID: 0001 Billa ble Time: 09:00:00 AM Not Available [facility] 0 14:49:24 Screening for malignant neoplasm of cervix Active 2014 Pap Smear;Prac gem ID: 0001 Not Available [facility] 0 14:49:[address] Concept Active 2017 Encntr for services account manager exam (general) (routine) w abnormal findings;P ractice ID: 0001 Not Available [facility] 0 14:49:25 Problem Notes None recorded. Procedures Surgical History Date Name Laterality Status Provider Name and Address Organization Details Recorded Time 12/08/19 17 Date of Last Pap Smear completed Louise [facility] 02/16/2023 10:04:49 05/03/18 94 Caesarean Section completed Louise [facility] 02/16/2023 10:08:34 06/01/18 90 [facility]16[facility] 10:08:28 cholecystectomy completed Louise [facility] 02/16/2023 10:08:49 tonsilectomy/adenoi ds completed Louise [facility] 02/16/2023 10:09:01 Orthopedic Surgery completed Vik pavon [facility] 02/16/2023 10:09:13 Imaging Results None recorded. Procedure Notes None recorded. Medical Equipment None Reported. Allergies Allergen ID Allergen Name Allergen Category Reaction Reaction Severity Criticality Documentation Date Start Date Code Code System Note Provider Name and Address Organization Details Recorded Time 60076 Product containin g penicilli n (product) medicatio n Not available Not available Not available 04/10/2020 36416 8001 SNOMED Comme nt: Locat ion: [place] [facility]; Not Available [facility] 0 14:20:51 Medications Name Sig Start Date [...] Elsewher e: Yes Loca tion: Oneil castanon [facility] M odify By: amkuhl E ncounter DateTime [...] Prescrib ed Elsewher e: Yes Loca tion: [facility] odify By: kay weissunter DateTime : 11/26/19 16 09:30:00 AM Not Available Not Available Not Available dicyclomi ne 10 mg capsule 02/16 completed Not Available Not Available Not Available monteluka st 4 mg oral granules in packet 02/16 completed Prescrib ed Elsewher e: Yes Loca tion: [facility] odify By: elena weissunter DateTime : 10/17/19 14 04:00:00 PM Not Available Not Available Not Available Zyrtec 10 mg capsule active Prescrib ed Elsewher e: Yes Loca tion: [facility] odify By: elena weissuntteresita DateTime : 10/17/19 14 04:00:00 PM Not Available Not Available Not Available Zolpimist 5 mg/spray (0.1 mL) oral spray spray 2 spray by translin gual route every day into the mouth, over the tongue at bedtime 02/16 completed Prescrib ed Elsewher e: Yes Loca tion: [facility] odify By: elena Castanon ncounter DateTime : 10/17/19 14 04:00:00 PM Not Available Not Available Not Available [employer]flex COVID-19 Antigen Home Test kit 02/16 completed Not Available Not Available Not Available Vitals Date Recorded Body height Body mass index (BMI) Body weight Systolic blood pressure Diastolic blood pressure Provider Name and Address Organization Details Last Updated DateTime 02/16/2023 167.64 cm 37.8 kg/m2 320103.6 1 g 138 mm[Hg] 82 mm[Hg] Louise Viera [facility] 10:15:53 Social History Question Answer Notes LastModified by Organizat ion Details LastModified Time Tobacco Smoking Status Never Smoker Louise Viera null, [facility] 02/16/2023 10:08:12 What Is Your Level [...] Not available 2022 10:06:41 Maternal Grandfather Malignant neoplasm of lung Not available 2022 10:07:16 Medical History Condition Response Diabetes Y Anemia Y Hypertension Y High Cholesterol Y Gynecological History Statement/Question Response Abnormal Pap [...] SNOMED-CT Code Diagnosis ICD10 Code Diagnosis Note [id number] Traci Chavez , [facility] [address] [address] 02/16/2023 09:42:53 02/16/2023 14:10:25 Gynecologic examination 57440826 Z01.419 Take Calcium with Vitamin D 12-1500mg daily. Do monthly self breast exams. It is advised to get annual flu shot in the fall and she could obtain at [facility] or [facility] care clinic. If you haven't received the [...] Labs UTD PCP Laboratory test result abnormal 040877099 L68.0 Facial hair increase-u nder chin mostlyElev ated T-levels in 08/2022Has [id number] opausal since early 50s.Hx of IUD use. Menopausal symptom 30758 002 N95.1 Menopausal since early 50's but recent lab work showed a less than 22 value for LH; wanted to repeat these to ensure we are not missing another issue as she is having a lot of endocrine sx's and has type 2 DM. Type 2 sparkle barakat mellitus 51767502 E11.9 Possible referral to new PCP & endocrinol varinder for assistance in managing these issues likely a combinatio n of DM2/Postme nopausal/O besity. Screening mammography 24 781307 Z12.31 Vaginitis 56456646 N76.0 PRN use ointment for keratinize d skin that will cause itching. Health Concerns Section Related Observation LastModified by Organization Detai ls LastModified Time None Recorded Concern Status LastModified by Organization Details LastModified Time None Recorded Advance Directives Directive None Recorded Payers Encounter Date Sequence Insurance Name Policy Number Policy Donaldson Covered Member ID Donaldson Member ID Guarantor Name 02/16/2023 1 [facility] ([facility] [id number] Madonna Mi [id number] 94 Madonna Mi Notes Date Note Type Note Provider Name and Address Organization Details Recorded Time 02/16/2023 text/html Annual Crew Chief Post-MenopausalRe ported bypatient.Menopau michael Symptoms:no menopausal symptoms; [...] mammogram; history of recent colonoscopy Traci Chavez, [facility]- [address], [place], [address], [facility] 02/16/2023 13:55:13 OBGyn Episode Ob Episode Information Episode Created Date Number of Fetuses Patient Bloodtype Patient rh Status Prepregnancy Weight lbs Domestic Partner Domestic Partner Phone Father Name Spring Repairer Helper Hand Status 02/17/20 23 1 CLOSED Fetus Data First Name Last Name Admitted to NICU Weight (g) Sex Living Outcome Pediatric Complications Fetus ID Race Codes Race Delivery Type Full Term [id number] Repeat Paul Calculation Initial Paul Date Initial [...] Domestic Partner Domestic Partner Phone Father Name Spring Repairer Helper Hand Status 02/17/20 23 1 CLOSED Fetus Data First Name Last Name Admitted to NICU Weight (g) Sex Living Outcome Pediatric Complications Fetus ID Race Codes Race Delivery Type Full Term [id number] Primary Paul Calculation Initial Paul Date Initial [...]
--- OUTSIDE RECORDS SUMMARY | 2024-08-19 07:18 | XMS_ITS | Clinical Summary ---
Author Organization [facility] Address [address] [place] [id number] Care Team Providers Care Call Person Name Role Phone Unavailable Primary Care Provider [...] Screening with HPV 1994 Mammogram Screening 2004 Pneumococcal Vaccine: 50+ Ye ars (1 of 1 - PCV) 2014 Zoster Vaccines (1 of 2) 2014 COVID-19 [...]
--- OUTSIDE RECORDS SUMMARY | 2024-08-19 07:18 | XMS_ITS | Clinical Summary ---
Author Organization [facility] Address [address] [place] [address] Phone Care Team Providers Care Engineer Technician Name Role Phone Pramod Phillips MD Primary Care Provider [phone] Social History Tobacco Use Types Packs/Day Years Used Date Smoking Tobacco: Never Assessed Comments Unknown Sex and Gender Information Value Date Recorded Sex Assigned at Female 06/27/2024 9:27 AM REFINERY TECHNICIAN Legal Sex Female 9:26 AM REFINERY TECHNICIAN Gender Identity Female 06/27/2024 9:27 AM REFINERY TECHNICIAN Sexual Orientation Not on file Plan of Treatment Upcoming Encounters Date Type Department Care Team (Late st Contact Info) Description 09/03/2024 11:00 AM CDT Office Visit [facility] [address] [place] [id number] Jose Eduardo Vasquez MD [address] [facility] [address] [phone] Health Maintenance Due Date Last Done Comments [...] patient's age to complete this topic Insurance Locappy Care Teams Engineer Technician Relationship Specialty Start Date End Date Pramod Phillips MD [address] [place] [address] PCP - General Pediatrics 06/27/24
== END 2024-08-19 07:12 | disposition home or self-care (01) ==
PROVIDERS: PCP Family Medicine; Visit Provider Family Medicine
DX: Z12.31 Encounter for screening mammogram for malignant neoplasm of breast (principal)
CPT/HCPCS: 76604; 77063; 77067

== ENCOUNTER 2024-08-20 13:32 | Outpatient (CLI) | payer OTHER, SELFPAY ==
--- NOTE | ~2024-08-20 | XR_ITS ---
EXAM: XR shoulder RT min 2V DATE: 08/20/2024 13:54 HISTORY: RT anterior pectoral palpable mass X 2 weeks, NKI . COMPARISON: None available. FINDINGS: Normal mineralization. No fracture or dislocation. No lytic or blastic lesion. Joint space s are maintained. No erosion or periosteal change. Soft tissues within normal limits. IMPRESSION: Unremarkable right shoulder radiograph findings. Reviewed, dictated and finalized at location K.
--- OUTSIDE RECORDS SUMMARY | 2024-08-20 14:49 | XMS_ITS | Clinical Summary ---
Author Organization [facility] Address [address] [place] [id number] Care Team Providers Care Rfid Technician Name Role Phone Unavailable Primary Care Provider [...]
--- OUTSIDE RECORDS SUMMARY | 2024-08-20 14:49 | XMS_ITS | Data Portability ---
Author Organization [facility] [place] Address [address] [place] [address] Care Team Providers Care Procurement Agent Name Role Phone GALILEA ROGERS Primary Care Provider [phone] Assessment Encounter Date Assessment Date Assessment LastModified by Organization Details LastModified Time 02/16/2023 02/16/2023 Annual gynecological exam performed. Patient will come back in a year unless there are new symptoms. [email or web address] Not available 02/16/2023 13:50:11 Plan of Treatment Reminders Order Date Submit Date Provider Last Modified By Organization Details Last Modified Time Details Appointments None recorded. Lab hormone panel, serum or plasma 2022 [facility] (Lab), [address], [place], [address], 12:42:58 HbA1c (hemoglobin A1c), blood 2022 023 [facility] (Lab), [address] [place], [address], 12:42:58 CMP, serum or plasma 2022 023 [facility] (Lab), [address] [place], [address], 3 12:42:57 CBC w/ auto diff 2022 023 [facility] (Lab), [address], [place], [address], 12:42:57 testosteron e free/testos terone total, ratio, serum 2022 [facility] (Lab), [address], [place], [address], 12:42:59 Referral primary care provider referral [address] [place] [address] Ariane Parmar GEODESY TEACHER, [address] [facility] , [address], [place], [address], 14:10:26 Procedures None recorded. Surgeries None recorded. Imaging MAMMO, screening, bilateral [address] [facility], [address], [address], [place], [address], 14:10:26 Medication Orders triamcinolo ne acetonide 0.1 % topical ointment 2022 [facility], [facility] [address] [place], [place], [id number], 10:47:59 Patient TargetsNo targets recorded. Patient InstructionsNo instructions recorded. Reason for Referral Primary Care Provider Referr al for Type 2 diabetes mellitus DM2/PCP Care/HTN/Possible Endocrinology referral needed Referring Physician: Traci Chavez, BACKER UP, Encounter Date: 02/16/2023 Results Created Date Observation Date Name Description Value Unit Range Abnormal Flag Note LastModifiedBy Organization Detail LastModifiedTime 02/17/2002/16/2023 CBC W/DIF F WBC 7.4 10'3/ uL 3.6-10 .2 Not Available [facility] (Lab) [address], [place], [address], 02/19/2023 12:42:57 02/17/2002/16/2023 CBC W/DIF F RBC 4.88 10'6/ uL (based on docume nted legal sex) 4.10-5 .30 Not Available [facility] (Lab) [address], [place], [address], 02/19/2023 12:42:57 02/17/2002/16/2023 CBC W/DIF F HGB 13.8 g/dL (based on docume nted legal sex) 11.9-1 5.8 Not Available [facility] (Lab) [address] , [place], [address], 02/19/2023 12:42:57 02/17/2002/16/2023 CBC W/DIF F HCT 45.3 % (based on docume nted legal sex) 37.4-4 8.3 Not Available [facility] (Lab) [address], [place], [address], 02/19/2023 12:42:57 02/17/2002/16/2023 CBC W/DIF F MCV 92.8 fL 82.0-9 9.0 Not Available [facility] (Lab) [address], [place], [address], 02/19/2023 12:42:57 02/17/2002/16/2023 CBC W/DIF F MCH 28.3 pg 27.0-3 3.0 Not Available [facility] (Lab) [address] [facility], [place], [address], 02/19/2023 12:42:57 02/17/2002/16/2023 CBC W/DIF F MCHC 30.5 g/dL 32.0-3 6.0 low Not Available [facility] (Lab) [address] [facility], [place], [address], 02/19/2023 12:42:57 02/17/2002/16/2023 CBC W/DIF F RDW 14.6 % 11.0-1 5.0 Not Available [facility] (Lab) [address], [place], [address], 02/19/2023 12:42:57 02/17/2002/16/2023 CBC W/DIF F plt 367 10'3/ uL 150-45 0 Not Available [facility] (Lab) [address], [place], [address], 02/19/2023 12:42:57 02/17/2002/16/2023 CBC W/DIF F MPV 10.9 fL 9.8-12 .7 Not Available [facility] (Lab) [address], [place], [address], 02/19/2023 12:42:57 02/17/2002/16/2023 CBC W/DIF F NRBC's 0.0 % 0 Not Available [facility] (Lab) [address], [place], [address], 02/19/2023 12:42:57 02/17/2002/16/2023 CBC W/DIF F absolute NRBCs 0.0 10'3/ uL 0 Not Available [facility] (Lab) [address], [place], [address], 02/19/2023 12:42:57 02/17/2002/16/2023 CBC W/DIF F neutrophils 64.6 % 37.0-7 2.0 Not Available [facility] (Lab) [address], [place], [address], 02/19/2023 12:42:57 02/17/2002/16/2023 CBC W/DIF F lymphocytes 20.7 % 16.0-4 8.0 Not Available [facility] (Lab) [address], [place], [address], 02/19/2023 12:42:57 02/17/2002/16/2023 CBC W/DIF F monocytes 7.0 % 4.0-14 .0 Not Available [facility] (Lab) [address], [place], [address], 02/19/2023 12:42:57 02/17/2002/16/2023 CBC W/DIF F eosinophils 6.5 % 0.0-9. 0 Not Available [facility] (Lab) [address] [facility], [place], [address], 02/19/2023 12:42:57 02/17/2002/16/2023 CBC W/DIF F basophils 0.8 % 0.0-2. 0 Not Available [facility] (Lab) [address] [facility], [place], [address], 02/19/2023 12:42:57 02/17/2002/16/2023 CBC W/DIF F immature granulocytes 0.4 % no define d refere nce range Not Available [facility] (Lab) [address] [facility], [place], [address], 02/19/2023 12:42:57 02/17/2002/16/2023 CBC W/DIF F absolute neutrophils 4.8 10'3/ uL 1.1-6. 0 Not Available [facility] (Lab) [address] [facility], [place], [address], 02/19/2023 12:42:57 02/17/2002/16/2023 CBC W/DIF F absolute lymphocytes 1.5 10'3/ uL 0.7-3. 4 Not Available [facility] (Lab) [address] [facility], [place], [address], 02/19/2023 12:42:57 02/17/2002/16/2023 CBC W/DIF F absolute monocytes 0.5 10'3/ uL 0.3-1. 0 Not Available [facility] (Lab) [address] [facility], [place], [address], 02/19/2023 12:42:57 02/17/2002/16/2023 CBC W/DIF F absolute eosinophils 0.5 10'3/ uL 0.0-0. 6 Not Available [facility] (Lab) [address] [facility], [place], [address], 02/19/2023 12:42:57 02/17/2002/16/2023 CBC W/DIF F absolute basophils 0.1 10'3/ uL 0.0-0. 1 Not Available [facility] (Lab) [address] [facility], [place], [address], 02/19/2023 12:42:57 02/17/2002/16/2023 CBC W/DIF F absolute immature granulocytes 0.0 10'3/ uL 0.00-0 .10 02/17 4:12 AM: P indic ates parti al resul ts on a panel have been relea sed. Addit ional resul ts will follo w. 02/17 4:12 AM: This resul t has been final verif ied. No addit ional or alves ed resul ts are expec robyn. Not Available [facility] (Lab) [address] [facility], [place], [address], 02/19/2023 12:42:57 02/17/2002/16/2023 CMP(C OMPRE HENSI VE METAB OLIC PANEL ) sodium 139 mmol/ L 133-14 6 Not Available [facility] (Lab) [address] [facility], [place], [address], 02/19/2023 12:42:57 02/17/2002/16/2023 CMP(C OMPRE HENSI VE METAB OLIC PANEL ) potassium 4.8 mmol/ L 3.5-5. 1 Not Available [facility] (Lab) [address] [facility], [place], [address], 02/19/2023 12:42:57 02/17/2002/16/2023 CMP(C OMPRE HENSI VE METAB OLIC PANEL ) chloride 104 mmol/ L 98-107 Not Available [facility] (Lab) [address] [facility], [place], [address], 02/19/2023 12:42:57 02/17/2002/16/2023 CMP(C OMPRE HENSI VE METAB OLIC PANEL ) carbon dioxide 27 mmol/ L 21-31 Not Available [facility] (Lab) [address], [place], [address], 02/19/2023 12:42:57 02/17/2002/16/2023 CMP(C OMPRE HENSI VE METAB OLIC PANEL ) anion gap 8 mmol/ L 4-13 Not Available [facility] (Lab) [address] [facility], [place], [address], 02/19/2023 12:42:57 02/17/2002/16/2023 CMP(C OMPRE HENSI VE METAB OLIC PANEL ) blood urea nitrogen 18 mg/dL 7-25 Not Available [facility] (Lab) [address] [facility], [place], [address], 02/19/2023 12:42:57 02/17/2002/16/2023 CMP(C OMPRE HENSI VE METAB OLIC PANEL ) creatinine 1.13 mg/dL 0.60-1 .30 Not Available [facility] (Lab) [address] [facility], [place], [address], 02/19/2023 12:42:57 02/17/2002/16/2023 CMP(C OMPRE HENSI VE METAB OLIC PANEL ) egfrcr (CKD-epi 2020) 56 mL/mi n/1.7 3_m2 >=60 low Not Available [facility] (Lab) [address] [facility], [place], [address], 02/19/2023 12:42:57 02/17/2002/16/2023 CMP(C OMPRE HENSI VE METAB OLIC PANEL ) calcium 9.9 mg/dL 8.3-10 .5 Not Available [facility] (Lab) [address] [facility], [place], [address], 02/19/2023 12:42:57 02/17/2002/16/2023 CMP(C OMPRE HENSI VE METAB OLIC PANEL ) glucose 106 mg/dL 70-100 high Not Available [facility] (Lab) [address] [facility], [place], [address], 02/19/2023 12:42:57 02/17/2002/16/2023 CMP(C OMPRE HENSI VE METAB OLIC PANEL ) protein, total 7.6 g/dL 6.4-8. 3 Not Available [facility] (Lab) [address] [facility], [place], [address], 02/19/2023 12:42:57 02/17/2002/16/2023 CMP(C OMPRE HENSI VE METAB OLIC PANEL ) albumin 4.3 g/dL 3.5-5. 0 Not Available [facility] (Lab) [address] [facility], [place], [address], 02/19/2023 12:42:57 02/17/2002/16/2023 CMP(C OMPRE HENSI VE METAB OLIC PANEL ) ALT 33 units /L 9-43 Not Available [facility] (Lab) [address] [facility], [place], [address], 02/19/2023 12:42:57 02/17/20 23 02/16/2023 CMP(C OMPRE HENSI VE METAB OLIC PANEL ) alkaline phosphatase 69 units /L 34-104 Not Available [facility] (Lab) [address] [facility], [place], [address], 02/19/2023 12:42:57 02/17/20 23 02/16/2023 CMP(C OMPRE HENSI VE METAB OLIC PANEL ) AST 22 units /L 13-39 Not Available [facility] (Lab) [address] [facility], [place], [address], 02/19/2023 12:42:57 02/17/20 23 02/16/2023 CMP(C OMPRE HENSI VE METAB OLIC PANEL ) bilirubin, total 0.3 mg/dL 0.2-1. 2 Not Available [facility] (Lab) [address] [facility], [place], [address], 02/19/2023 12:42:57 02/17/2002/16/2023 HEMOG LOBIN A1C hemoglobin [...] >8.0% Actio n sugge sted Not Available [facility] (Lab) [address], [place], [address], 02/19/2023 12:42:58 02/17/2002/16/2023 FSH, LH, ESTRA DIOL [...] 561-2 1280 pg/mL 3rd Trime ster8 525-> 40763 pg/mL Not Available [facility] (Lab) [address], [place], [address], 02/19/2023 12:42:58 02/17/20 23 02/16/2023 FSH, LH, ESTRA DIOL FSH 43.4 mIU/m L This assay was perfo rmed using [employer] ratio n reage nts and test kits. Value s obtai jazmyne with other assay metho ds or kits canno t be used inter [facility] [place] . Femal es Folli cular : 3.5-1 2.5 mIU/m L Ovula tion: 4.7-2 1.5 mIU/m L Lutea l: 1.7-7 .7 mIU/m L Postm enopa use: 25.8- 134.8 mIU/m L Not Available [facility] (Lab) [address] [facility], [place], [address], 02/19/2023 12:42:58 02/17/20 23 02/16/2023 FSH, LH, ESTRA DIOL LH 32.4 mIU/m L This assay was perfo rmed using [employer] ratio n reage nts and test kits. Value s obtai jazmyne with other assay metho ds or kits canno t be used inter [facility] [place] . Femal es Mid-F ollic ular: 2.4-1 2.6 mIU/m L Mid-C ycle: 14.0- 95.6 mIU/m L Mid-L uteal : 1.0-1 1.4 mIU/m L Postm enopa use: 7.7-5 8.5 mIU/m L Not Available [facility] (Lab) [address] [facility], [place], [address], 02/19/2023 12:42:58 02/17/20 23 02/16/2023 TESTO STERO [...] cteri stics have been deter mined by [employer] [facility] [place]. It has not been clear ed or appro johnson by the U.S. Food and Drug Admin istra tion. This assay has been valid ated pursu ant to the CLIA regul ation s and is used for clini jesus purpo ses. Not Available [facility] (Lab) [address] [facility], [place], [address], 02/19/2023 12:42:59 02/17/2002/16/2023 TESTO STERO NE, FREE( DIALY SIS) AND TOTAL (LC/M S/MS) testosterone , free 9.0 pg/mL 0.1-6. 4 high This test was devel oped and its zainab tical perfo rmanc e kike cteri stics have been deter mined by [employer] [facility] [place]. It has not been clear ed or appro johnson by the U.S. Food and Drug Admin istra tion. This assay has been valid ated pursu ant to the CLIA regul ation s and is used for clini jesus purpo ses. Perfo rming Organ izati on Infor matio n: Site ID: AMD Name: Lori Gramovox amalia s [facility] Addre ss: [id number] [facility] [place], [place] Direc tor: Osbaldo Curiel MD PhD Not Available [facility] (Lab) [address], [place], [address], 02/19/2023 12:42:59 02/17/2002/16/2023 IMAGE GUIDE D PAP AND HPV REGAR DLESS image guided Pap, HPV regardless of Pap result SEE RESULT S BELOW CASE REPOR T: Cytol ogy Gynec ologi jesus Repor t Case: [id number] Autho wendi sylvester Provi miguel: Enzo Vail Colle cted: 02/16 1602 GEODESY TEACHER Order ing Locat ion: [place] [facility] [...] as clini theresa otero nted. Not Available [facility] (Lab) [address] [facility], [place], [address], 02/21/2023 14:06:50 Result Notes None recorded. Problems Name Problem SNOMED Code Status Onset Date Resolution Date Notes Provider Name and Address Organization Details Recorded Time Uses IUD (intraute rine device) contracep tion 825930666 Active 2013 Surveillan ce of intrauteri ne contracept pavithra device;Rec orded Elsewhere: No Locatio n: [facility] rce: EHR Chroni c: N Practice ID: 0001 Billa ble Time: 04:00:00 PM Not Available [facility] 0 14:49:23 Screening for malignant neoplasm of rectum Active 2014 Screening for malignant neoplasms of the rectum;Rec orded Elsewhere: No Locatio n: [facility] Denise rce: EHR Chroni c: N Practice ID: 0001 Billa ble Time: 08:45:00 AM Not Available [facility] 0 14:49:23 Removal of intrauter ine device Active 2017 Encounter for removal of intrauteri ne contracept pavithra device;Rec orded Elsewhere: No Locatio n: [facility] Denise rce: EHR Chroni c: N Practice ID: 0001 Billa ble Time: 10:15:00 AM Not Available [facility] 0 14:49:23 Hypertens pavithra disorder 08269539 Active 2017 HTN;Record ed Elsewhere: No Locatio n: [facility] Denise rce: EHR Chroni c: N Practice ID: 0001 Billa ble Time: 09:00:00 AM Not Available [facility] 0 14:49:23 Polyp of corpus uteri 96057910 Active 2010 Polyp Endometria l Uterus;Pra ctice ID: 0001 Not Available [facility] 0 14:49:23 Menstruat ion finding Active 2010 Menorrhagi a Excessive Menstruati on;Practic e ID: 0001 Not Available [facility] 0 14:49:23 Dysfuncti onal uterine bleeding Active 2010 DUB;Practi ce ID: 0001 Not Available [facility] 0 14:49:23 Pre-surge ry evaluatio n Active 2010 Pre-operat pavithra examinatio n, unspecifie d;Practice ID: 0001 Not Available [facility] 0 14:49:23 Insertion of intrauter ine contracep tive device Active 2010 INSERTION OF IUD;Practi ce ID: 0001 Not Available [facility] 0 14:49:23 Adult health examinati on Active 2014 Routine general medical examinatio n at a health care facility;Tang lenz ID: 0001 Not Available [facility] 0 14:49:23 Specializ ed medical examinati on Active 2014 Routine gynecologi jesus examinatio n;Practice ID: 0001 Not Available [facility] 0 14:49:[address] Concept Active 2017 Encntr for hospice manager exam (general) (routine) w/o abn findings;R ecorded Elsewhere: No Locatio n: [facility] rce: EHR Chroni c: N Practice ID: 0001 Billa ble Time: 09:00:00 AM Not Available [facility] 0 14:49:[address] Concept Active 2015 Encntr for general adult medical exam w/o abnormal findings;R ecorded Elsewhere: No Locatio n: [facility] Denise rce: EHR Chroni c: N Practice ID: 0001 Billa ble Time: 09:30:00 AM Not Available [facility] 0 14:49:24 Menopause present 049988820 Active 2015 Symptoms such as flushing, sleeplessn ess, headache, lack of concentrat ion, associated with natural (age-relat ed) menopause; Recorded Elsewhere: No Locatio n: [facility] Dneise rce: EHR Chroni c: N Practice ID: 0001 Billa ble Time: 09:30:00 AM Not Available [facility] 0 14:49:24 Finding of body mass index 098851177 Active 2017 Body mass index (BMI) 40.0-44.9, adult;Colt rded Elsewhere: No Locatio n: [facility] Denise rce: EHR Chroni c: N Practice ID: 0001 Billa ble Time: 09:00:00 AM Not Available [facility] 0 14:49:24 Screening for malignant neoplasm of cervix Active 2014 Pap Smear;Prac gem ID: 0001 Not Available [facility] 0 14:49:[address] Concept Active 2017 Encntr for hospice manager exam (general) (routine) w abnormal findings;P ractice ID: 0001 Not Available [facility] 0 14:49:25 Problem Notes None recorded. Procedures Surgical History Date Name Laterality Status Provider Name and Address Organization Details Recorded Time 12/08/19 17 Date of Last Pap Smear completed Louise [facility] 02/16/2023 10:04:49 05/03/18 94 Caesarean Section completed Louise [facility] 02/16/2023 10:08:34 06/01/18 90 [facility]/16[facility]23 10:08:28 cholecystectomy completed Louise [place] [...] Name and Address Organization Details Recorded Time 51471 Product containin g penicilli n (product) medicatio n Not available Not available Not available 04/10/2020 45012 8001 SNOMED Comme nt: Locat ion: [place] [facility]; Not Available [facility] 0 14:20:51 Medications Name Sig Start Date [...] Elsewher e: Yes Loca tion: Oneil castanon [facility] M odify By: amkuhl E ncounter [...] Prescrib ed Elsewher e: Yes Loca tion: [facility] odify By: kay weissunter DateTime : 11/26/19 16 09:30:00 AM Not Available Not Available Not Available dicyclomi ne 10 mg capsule 02/16 completed Not Available Not Available Not Available monteluka [address] 4 mg oral granules in packet 02/16 completed Prescrib ed Elsewher e: Yes Loca tion: [facility] odify By: elena weissunter DateTime : 10/17/19 14 04:00:00 PM Not Available Not Available Not Available Zyrtec 10 mg capsule active Prescrib ed Elsewher e: Yes Loca tion: [facility] odify By: elena weissuntteresita DateTime : 10/17/19 14 04:00:00 PM Not Available Not Available Not Available Zolpimist 5 mg/spray (0.1 mL) oral spray spray 2 spray by translin gual route every day into the mouth, over the tongue at bedtime 02/16 completed Prescrib ed Elsewher e: Yes Loca tion: [facility] odify By: elnea Castanon ncounter DateTime : 10/17/19 14 04:00:00 PM Not Available Not Available Not Available Flowflex COVID-19 Antigen Home Test kit 02/16 completed Not Available Not Available Not Available Vitals Date Recorded Body height Body mass index (BMI) Body weight Systolic blood pressure Diastolic blood pressure Provider Name and Address Organization Details Last Updated DateTime 02/16/2023 167.64 cm 37.8 kg/m2 972185.6 1 g 138 mm[Hg] 82 mm[Hg] Louise Viera [facility] 10:15:53 Social History Question Answer Notes LastModified by Organizat ion Details LastModified Time Tobacco Smoking Status Never Smoker Louise Viera null, [facility] 02/16/2023 10:08:12 What Is Your Level [...] SNOMED-CT Code Diagnosis ICD10 Code Diagnosis Note [id number] Traci Chavez , [facility] [address] [address] 02/16/2023 09:42:53 02/16/2023 14:10:25 Gynecologic examination 17597471 Z01.419 Take Calcium with Vitamin D 12-1500mg daily. Do monthly self breast exams. It is advised to get annual flu shot in the fall and she could obtain at [facility] or [facility] care clinic. If you haven't received [...] Labs UTD PCP Laboratory test result abnormal 885171302 L68.0 Facial hair increase-u nder chin mostlyElev ated T-levels in 08/2022Has NV5Tmijwtj opausal since early 50s.Hx of IUD use. Menopausal symptom 22474 002 N95.1 Menopausal since early 50's but recent lab work showed a less than 22 value for LH; wanted to repeat these to ensure we are not missing another issue as she is having a lot of endocrine sx's and has type 2 DM. Type 2 sparkle barakat mellitus 37169172 E11.9 Possible referral to new PCP & endocrinol varinder for assistance in managing these issues likely a combinatio n of DM2/Postme nopausal/O besity. Screening mammography 24 194624 Z12.31 Vaginitis 85595081 N76.0 PRN use ointment for keratinize d skin that will cause itching. Health Concerns Section Related Observation LastModified by Organization Detai ls LastModified Time None Recorded Concern Status LastModified by Organization Details LastModified Time None Recorded Advance Directives Directive None Recorded Payers Encounter Date Sequence Insurance Name Policy Number Policy Donaldson Covered Member ID Donaldson Member ID Guarantor Name 02/16/[address] [facility]: (PPO[place] [id number] Madonna Mi [id number] Madonna Mi Notes Date Note Type Note Provider Name and Address Organization Details Recorded Time 02/16/2023 text/html Annual Jack Winder Post-MenopausalRe ported bypatient.Menopau michael Symptoms:no menopausal symptoms; [...] [facility] [address], [place], [address], [facility] 02/16/2023 13:55:13 OBGyn Episode Ob Episode Information Episode Created Date Number of Fetuses Patient Bloodtype Patient rh Status Prepregnancy Weight lbs Domestic Partner Domestic Partner Phone Father Name Bakery Manager Status 02/17/20 23 1 CLOSED Fetus Data First Name Last Name Admitted to NICU Weight (g) Sex Living Outcome Pediatric Complications Fetus ID Race Codes Race Delivery Type Full Term [id number] Repeat Paul Calculation Initial Paul Date Initial [...] Domestic Partner Domestic Partner Phone Father Name Bakery Manager Status 02/17/20 23 1 CLOSED Fetus Data First Name Last Name Admitted to NICU Weight (g) Sex Living Outcome Pediatric Complications Fetus ID Race Codes Race Delivery Type Full Term [id number] Primary Paul Calculation Initial Paul Date Initial [...]
--- OUTSIDE RECORDS SUMMARY | 2024-08-20 14:49 | XMS_ITS | Clinical Summary ---
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 Legal Sex Female 9:26 AM SURVEY OPERATIONS DIRECTOR Gender Identity Female 06/27/2024 9:27 AM SURVEY OPERATIONS DIRECTOR Sexual Orientation Not on file Plan of Treatment Upcoming Encounters Date Type Department Care Team (Late st Contact Info) Description 09/03/2024 11:00 AM CDT Office Visit [facility] [address] [place] [id number] Jose Eduardo Vasquez [facility] [address] [facility] [address] [phone] Health Maintenance Due Date Last Done Comments [...] patient's age to complete this topic Insurance [email or web address] Care Teams Whipped Topping Mixer Relationship Specialty Start Date End Date Pramod Phillips MD [address] [place] [address] PCP - General Pediatrics 06/27/24
== END 2024-08-20 13:33 | disposition home or self-care (01) ==
LOC: CHSIMG 13:35
PROVIDERS: PCP Family Medicine; Visit Provider Family Medicine
DX: R22.2 Localized swelling, mass and lump, trunk (principal)
CPT/HCPCS: 73030